=== PATIENT | female | born 1960 | race Caucasian/White ===

== ENCOUNTER 2018-09-22 12:36 | Emergency (ER) | payer BC ==
--- NOTE | 2018-09-22 15:01 | RAD REPORT ---
EXAM DESCRIPTION: RAD - Shoulder Left 2 View - 09/22/2018 1:58 pm CLINICAL HISTORY: Left shoulder pain FINDINGS: No fracture or dislocation is seen. Acromioclavicular space is widened. I suspect this is a chronic finding rather than an acute injury t o the ligament. This should be correlated clinically.
--- NOTE | 2018-09-22 15:23 | ER ---
Nurse's Notes [facility] Name: Ayse Reinoso Age: 58 yrs Sex: Female : 1960 Arrival Date: 09/22/2018 Time: 12:40 Bed 11 Private MD: Jase Chawla Diagnosis: Pain in left shoulder;Muscle spasm Presentation: 09/22 12:52 Presenting complaint: Patient states: L shoulder pain that began yesterday morning, ph radiates to neck, pt states, " It hurts to turn my head and it feels like my L arm wants to go to sleep, pt reports hx of L shoulder sx, denies recent injury, also denies chestpain, SOB, dizziness, N/V. Transition of care: patient was not received from another setting of care. Onset of symptoms was September 22, 2018. Risk Assessment: Do you want to hurt yourself or someone else? Patient reports no desire to harm self or others. Initial Sepsis Screen: Does the patient meet any 2 criteria? No. Patient's initial sepsis screen is negative. Does the patient have a suspected source of infection? No. Patient's initial sepsis screen is negative. Care prior to arrival: None. 12:52 Method Of Arrival: Ambulatory ph 12:52 Acuity: CYNDI 4 ph Historical: - Allergies: 12:57 Demerol; ph 12:57 Lortab; ph 12:57 Morphine; ph - PSHx: 12:57 Pt has one kidney; Tubal ligation; Knee surgery; shoulder; Hysterectomy; ph Cholecystectomy; - Immunization history:: Adult Immunizations up to date. - Social history:: Smoking status: unknown. - Ebola Screening: : Patient denies exposure to infectious person Patient denies travel to an Ebola-affected area in the 21 days before illness onset. Screenin:50 Abuse screen: Denies threats or abuse. Denies injuries from another. Nutritional ss screening: No deficits noted. Tuberculosis screening: No symptoms or risk factors identified. Never had TB. Fall Risk None identified. Assessment: 14:50 General: Appears uncomfortable, Behavior is calm, cooperative. Pain: Complains of pain ss in left sternocleidomastoid and left trapezius and left shoulder Pain currently is 8 out of 10 on a pain scale. Is continuous. Neuro: Level of Consciousness is awake, alert, obeys commands, Oriented to person, place, time, situation. Cardiovascular: Capillary refill < 3 seconds is brisk in bilateral fingers. Respiratory: Airway is patent Respiratory effort is even, unlabored, Respiratory pattern is regular, symmetrical. EENT: Oral mucosa is moist. Throat is clear. Derm: Skin is intact, is healthy with good turgor, Skin is pink, warm \\T\\ dry. normal. Musculoskeletal: Circulation, motion, and sensation intact. Capillary refill < 3 seconds, is brisk, in bilateral fingers. Range of motion: limited in left shoulder Swelling absent. Vital Signs: 12:56 BP 111 / 52; Pulse 77; Resp 18; Temp 98.2; Pulse Ox 100% on R/A; Weight 55.34 kg; ph Height 5 ft. 3 in. (160.02 cm); Pain 8/10; 12:56 Body Mass Index 21.61 (55.34 kg, 160.02 cm) ph ED Course: 12:40 Patient arrived in ED. sb2 12:40 Jase Chawla MD is Private Physician. sb2 12:56 Triage completed. ph 12:57 Arm band placed on Patient placed in waiting room, Patient notified of wait time. X-ray ph ordered. 13:57 X-ray completed. Patient tolerated procedure well. Patient moved back from radiology. jb2 14:50 Patient has correct armband on for positive identification. Bed in low position. Call ss light in reach. 15:13 Rhian[facility] Mil[facility]-C [facility]. snw 15:13 Zeus Kovacs MD is Attending Physician. snw 15:14 Ivonne Katz RN is Primary Nurse. ss 15:21 Jase Chawla MD is Referral Physician. snw 15:40 No provider procedures requiring assistance completed. Patient did not have IV access ss during this emergency room visit. Administered Medications: 15:24 Not Given (Patient Refused): TORadol 60 mg IM once ss 15:24 Not Given (pt drove herself): Flexeril 10 mg PO once ss Outcome: 15:21 Discharge ordered by . snw 15:40 Discharged to home ambulatory. ss 15:40 Condition: good 15:40 Discharge instructions given to patient, Instructed on discharge instructions, follow up and referral plans. medication usage, Demonstrated understanding of instructions, follow-up care, medications, Prescriptions given X 2. 15:40 Patient left the ED. Signatures: Rhiannon Milian, LINNEA-C ATMOSPHERIC PHYSICIST-Luis Enrique Bolden [place], NADIYA RN Hortencia Alvarez RN RN Eligio, Tete sb2
--- NOTE | 2018-09-22 15:23 | EDPHYS ---
Physician Documentation [facility] Name: Ayse Reinoso Age: 58 yrs Sex: Female : 1960 Arrival Date: 09/22/2018 Time: 12:40 Bed 11 Private MD: Jase Chawla ED Physician Zeus Kovacs HPI: 09/22 15:25 This 58 yrs old Female presents to ER via Ambulatory with complaints of snw Shoulder Pain, Neck Problem, Arm Pain. 15:25 The patient or guardian complains of decreased range of motion, pain, spasm. left snw shoulder, left trapezius and left sternocleidomastoid. Context: The problem was sustained at home, resulted from an unknown reason, The patient experiences decreased range of motion, The patient reports no obvious deformity. hx of 2 surgeries to left shoulder. Onset: The symptoms/episode began/occurred suddenly, 2 day(s) ago, and became worse and became persistent. Associated signs and symptoms: The patient has no apparent associated signs or symptoms. Severity of symptoms: At their worst the symptoms were moderate, severe, in the emergency department the symptoms are unchanged. Treatment prior to arrival includes: icing the affected extremity. It is unknown whether or not the patient has had similar symptoms in the past. The patient has not recently seen a physician. Historical: - Allergies: 12:57 Demerol; ph 12:57 Lortab; ph 12:57 Morphine; ph - PSHx: 12:57 Pt has one kidney; Tubal ligation; Knee surgery; shoulder; Hysterectomy; ph Cholecystectomy; - Immunization history:: Adult Immunizations up to date. - Social history:: Smoking status: unknown. - Ebola Screening: : Patient denies exposure to infectious person Patient denies travel to an Ebola-affected area in the 21 days before illness onset. ROS: 15:25 Constitutional: Negative for fever, chills, and weight loss, Eyes: Negative for injury, snw pain, redness, and discharge, ENT: Negative for injury, pain, and discharge, Neck: Negative for injury, pain, and swelling, Cardiovascular: Negative for chest pain, palpitations, and edema, Respiratory: Negative for shortness of breath, cough, wheezing, and pleuritic chest pain, Abdomen/GI: Negative for abdominal pain, nausea, vomiting, diarrhea, and constipation, Back: Negative for injury and pain, : Negative for injury, bleeding, discharge, and swelling, Skin: Negative for injury, rash, and discoloration, Neuro: Negative for headache, weakness, numbness, tingling, and seizure. 15:25 MS/extremity: Positive for shooting pain in left shoulder up to posterior mandible area. Exam: 15:24 Constitutional: This is a well developed, well nourished patient who is awake, alert, snw and in no acute distress. Head/Face: Normocephalic, atraumatic. Eyes: Pupils equal round and reactive to light, extra-ocular motions intact. Lids and lashes normal. Conjunctiva and sclera are non-icteric and not injected. Cornea within normal limits. Periorbital areas with no swelling, redness, or edema. ENT: Nares patent. No nasal discharge, no septal abnormalities noted. Tympanic membranes are normal and external auditory canals are clear. Oropharynx with no redness, swelling, or masses, exudates, or evidence of obstruction, uvula midline. Mucous membranes moist. Neck: Trachea midline, no thyromegaly or masses palpated, and no cervical lymphadenopathy. Supple, full range of motion without nuchal rigidity, or vertebral point tenderness. No Meningismus. Chest/axilla: Normal chest wall appearance and motion. Nontender with no deformity. No lesions are appreciated. Cardiovascular: Regular rate and rhythm with a normal S1 and S2. No gallops, murmurs, or rubs. Normal PMI, no JVD. No pulse deficits. Respiratory: Lungs have equal breath sounds bilaterally, clear to auscultation and percussion. No rales, rhonchi or wheezes noted. No increased work of breathing, no retractions or nasal flaring. Abdomen/GI: Soft, non-tender, with normal bowel sounds. No distension or tympany. No guarding or rebound. No evidence of tenderness throughout. Back: No spinal tenderness. No costovertebral tenderness. Full range of motion. Skin: Warm, dry with normal turgor. Normal color with no rashes, no lesions, and no evidence of cellulitis. Neuro: Awake and alert, GCS 15, oriented to person, place, time, and situation. Cranial nerves II-XII grossly intact. Motor strength 5/5 in all extremities. Sensory grossly intact. Cerebellar exam normal. Normal gait. Psych: Awake, alert, with orientation to person, place and time. Behavior, mood, and affect are within normal limits. 15:24 Musculoskeletal/extremity: Extremities: grossly normal except: noted in the left shoulder: decreased ROM, pain, muscle spasm. Vital Signs: 12:56 BP 111 / 52; Pulse 77; Resp 18; Temp 98.2; Pulse Ox 100% on R/A; Weight 55.34 kg; ph Height 5 ft. 3 in. (160.02 cm); Pain 8/10; 12:56 Body Mass Index 21.61 (55.34 kg, 160.02 cm) ph MDM: 15:13 Patient medically screened. snw 15:23 Data reviewed: vital signs, nurses notes. Data interpreted: Pulse oximetry: on room air snw is 100 %. Interpretation: normal. Counseling: I had a detailed discussion with the patient and/or guardian regarding: the historical points, exam findings, and any diagnostic results supporting the discharge/admit diagnosis, radiology results, the need for outpatient follow up, to return to the emergency department if symptoms worsen or persist or if there are any questions or concerns that arise at home. Special discussion: Based on the history and exam findings, there is no indication for further emergent testing or inpatient evaluation. I discussed with the patient/guardian the need to see the orthopedic surgeon for further evaluation of the symptoms. I discussed with the patient/guardian the need to see the primary care provider for further evaluation of the symptoms. ED course: Pt declines anti-inflammatory 2nd to solitary kidney post donation. States she can take Ultram. Pt unable to get ride so rx given. 09/22 12:57 Order name: Shoulder Left (2 View) XRAY 09/22 15:03 Order name: RAD; Complete Time: 15:14 EDMS Administered Medications: 15:24 Not Given (Patient Refused): TORadol 60 mg IM once ss 15:24 Not Given (pt drove herself): Flexeril 10 mg PO once ss Disposition: 09/22/18 15:21 Discharged to Home. Impression: Pain in left shoulder, Muscle spasm. - Condition is Stable. - Discharge Instructions: Joint Pain, Musculoskeletal Pain, Shoulder Pain, Cryotherapy, Heat Therapy. - Prescriptions for Ultram 50 mg Oral Tablet - take 1 tablet by ORAL route every 6 hours As needed; 14 tablet. Cyclobenzaprine 10 mg Oral Tablet - take 1 tablet by ORAL route every 8 hours As needed; 20 tablet. - Medication Reconciliation Form, Thank You Letter, Antibiotic Education, Prescription Opioid Use form. - Follow up: Jase Chawla MD; When: 2 - 3 days; Reason: Recheck today's complaints, Continuance of care, Re-evaluation by your physician. Addendum: 09/24/2018 09:12 Co-signature as Attending Physician, Zeus Kovacs MD I agree with the assessment and k dr plan of care. Signatures: Dispatcher [employer] EDRI Zeus Kovacs MD MD [facility] Rhiannon Milian, PROFESSOR OF RHETORIC-C PROFESSOR OF RHETORIC-Csnw Ivonne Katz, NADIYA RN ss Hortencia Alvarez RN RN ph Corrections: (The following items were deleted from the chart) 09/22 15:40 15:27 Sling ordered. snw ss 15:40 15:21 09/22/2018 15:21 Discharged to Home. Impression: Pain in left shoulder; Muscle ss spasm. Condition is Stable. Forms are Medication Reconciliation Form, Thank You Letter, Antibiotic Education, Prescription Opioid Use. Follow up: Jase Chawla; When: 2 - 3 days; Reason: Recheck today's complaints, Continuance of care, Re-evaluation by your physician. snw
== END 2018-09-22 15:40 | disposition home or self-care (01) ==
LOC: ER 12:36
DX: M62.838 Other muscle spasm (principal); Z88.5 Allergy status to narcotic agent
CPT/HCPCS: 99283

== ENCOUNTER 2020-10-27 20:58 | Emergency (ER) | payer BC, OTHER ==
--- OUTSIDE RECORDS SUMMARY | 2020-10-27 21:00 | XMS REPORT | Clinical Summary ---
:1960 Author Organization [facility] Address [address] [place] [address] Care Team Providers Name Role Phone Ulices Sainz MD Primary Care Provider Allergies Active Allergy Reactions Severity Noted Date Comments Hydrocodone-Acetaminophen Other (See Comments) 996 Meperidine Other (See Comments) 10/24/1995 Morphine 10/24/1995 Medications Medication Sig Dispensed Refills Start Date End Date Status albuterol (PROVENTIL 0 11/25/2013 Active HFA) 90 mcg/actuation inhaler SYMBICORT 80-4.5 0 07/01/2019 Ac tive mcg/actuation inhaler EPINEPHrine 0.3 0 11/25/2013 Act colton mg/0.3 mL syringe estradiol APPLY 1 2 06/21/2019 Active (VIVELLE-DOT) 0.05 PATCH TO mg/24 hr SKIN WEEKLY. levocetirizine Take 5 mg 1 06/22/2019 Acti ve (XYZAL) 5 MG tablet by mouth daily. montelukast 0 11/25/2013 Active (SINGULAIR) 10 mg tablet BOTOX 200 unit recon 0 04/17/2019 Active soln multivitamin with Take 1 0 Ac tive minerals tablet tablet by mouth daily. B infantis/B ani/B Take by 0 A ctive angie/B bifid mouth. (PROBIOTIC 4X ORAL) famotidine (PEPCID) 0 09/10/2019 Active 40 MG tablet atorvastatin Take 1 90 tablet 3 06/10/2020 Active (LIPITOR) 20 mg tablet (20 tablet mg total) by mouth daily. atorvastatin Take 20 mg 0 09/24/2019 Disco ntinued (LIPITOR) 20 MG by mouth 0 (Reo rder) tablet daily. 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/2019 Disorder of rotator cuff 09/24/2019 Shoulder joint pain 09/24/2019 SOB (shortness of breath) 07/06/2019 Bradycardia 07/06/2019 Carotid bruit 07/06/2019 Palpitations 07/06/2019 Abnormal ECG 07/06/2019 Vaginal atrophy 08/19/2016 Dyspareunia 06/23/2016 Encounter for gynecological examination (general) (rou daphne) without 06/23/2016 abnormal findings Menopausal syndrome (hot flashes) 06/23/2016 Plantar fascia syndrome 02/26/2016 Asthma 10/24/1995 Attention deficit disorder (ADD) 1960 Encounters Date Type Specialty Care Team Description 06/10/2020 Orders Only Cardiology Zelda Miner MA 11/01/2019 Office Visit Hepatology Philip Reed MD Liver c yst (Primary Dx) after 10/27/2019 Surgical History Surgery Date Site/Laterality Comments REPAIR, HERNIA Medical History Medical History Date Comments Palpitations Abnormal ECG GERD (gastroesophageal reflux disease) Asthma Allergy Liver cyst Family History Medical History Relation Name Comments Bladder Cancer Father Heart disease Father Heart disease Mother Hypertension Mother Seizures Mother Relation Name Status Comments Father Alive Mother Alive Social History Tobacco Use Types Packs/Day Years Used Date Former Smoker 1 40 Quit: 07/06/20 05 Smokeless Tobacco: Never Used Alcohol Use Drinks/Week oz/Week Comments Yes Sex Assigned at Date Recorded Female 06/28/2019 3:16 PM CDT Last Filed Vital Signs Vital Sign Reading Time Taken Comments Blood Pressure 116/56 11/01/2019 1:20 PM [employer] Pulse 63 11/01/2019 1:20 PM [employer] Temperature - - Respiratory Rate - - Oxygen Saturation 95% 11/01/2019 1:20 PM [employer] Inhaled Oxygen Concentration - - Weight 58.1 kg (128 lb 2 oz) 11/01/2019 1:20 PM [employer] Height 160 cm (5' 3") 11/01/2019 1:20 PM [employer] Body Mass Index 22.7 11/01/2019 1:20 PM [employer] Plan of Treatment Health Maintenance Due Date Last Done Comments COVID-19 VACCINE (#1) 1978 CERVICAL CANCER SCREENING 1983 BREAST CANCER SCREENING 01/03/2012 COLONOSCOPY SCREENING 01/03/2012 SHINGLES VACCINES (#1) 01/03/2012 INFLUENZA VACCINE 05/24/2020 07/06/2019 Results Not on fileafter 10/27/2019 Advance Directives For more information, please contact: [phone] Type Date Recorded Patient Roof Foreman Explanati on Advance Directives, Living Will and Medical Power of Striper
--- OUTSIDE RECORDS SUMMARY | 2020-10-27 21:06 | XMS REPORT | Continuity of Care Document ---
:1960 Author Organization [employer] Care Team Providers Name Role Phone [employer] Unavailable Un available Problems Problem Status Onset Classification Date Comments Sourc e Date Reported M25.519 - PAIN Active 10/08/20 OP ID IN UNSPECIFIED 19 [facility] and SHOULDER RENAL POST Active 04/30/20 [facility] 15 [facility] Center RENAL POST Active 11/26/19 [facility] DONOR CLINIC 15 [facility] LRD Active 05/17/[address] DONOR VISIT Active 12/05/[address] LABS Active 05/28/[address] LABS // Active 04/17/[address] BDDC/SCREENING Active 04/10/20 [facility] xa COLONOSCOPY [address] [place] [address] RENAL Active 03/16/20 [facility] PT///COLON 13 [facility] KIDNEY DONOR Active 03/09/[address] LIVING DONOR Active 02/07/20 [facility] EVAL [address] [place] [address] Dyspareunia Active 04/12/2013 [facility] cyst removal on Resolved Problem 08/30/2013 [facility] Left shoulder Resolved Problem 08/30/2013 [address] [facility] [place] surgery1 [facility] Center right knee Resolved Problem 08/30/2013 [facility] arthroscopy [facility] Total Abdominal Resolved Problem 08/30/2013 [facility] Tubal ligation2 Resolved Problem 08/30/2013 [id number] [facility] [facility] cyst removal on Resolved Problem 12/30/2014 [facility](Confir Cent er med) Left shoulder Resolved Problem 12/30/2014 [address] [facility] [place] surgery(Confirm Medi zhou ed)1 Center right knee Resolved Problem 12/30/2014 [facility] arthroscopy(Con Medi zhou firmed) Center Total Abdominal Resolved Problem 12/30/2014 [facility] hysterectomy(Co Medi zhou nfirmed) Center Tubal Resolved Problem 12/30/2014 41[address] [facility] ligation(Confir Medi zhou med)2 Center KIDNEY DONOR Active [facility] Medications Medication Details Route Status Patient Ordering Order Source Instructions Provider Date Omeprazole PO, Daily, 0 Active Refill(s) 2018 Neuro Estradiol 0 Refill(s) Active 2019 Neuro Xyzal PO, QPM, 0 Active Refill(s) 2018 Neuro 200 ACTUAT 2 puff, Active Albuterol 0.09 INHALATION, QID, 2018 Neuro MG/ACTUAT 0 Refill(s) Metered Dose Inhaler [Proventil] Symbicort 2 puff, Active 160/4.5 INHALATION, BID, 2018 Neuro inhalation 0 Refill(s) aerosol with adapter tizanidine PO, 0 Refill(s) Active er 2018 Neuro Singulair Daily, 0 Active Refill(s) 2018 Neuro Probiotic 1 cap, PO, Active [place] Formula oral Daily, 0 2014 Medical capsule Refill(s) [place] Zofran 4 mg 4 mg, 1 tab, PO, PO Active [facility] [place] oral tablet Q8H, PRN, 30 fuad 2012 Medical tab, as needed Center for nausea/vomiting, Substitution Allowed tramadol 50 mg 50 mg, 1 tab, PO Active [facility] [place] oral tablet PO, Q4H, PRN, 50 fuad 2012 Med ical tab, as needed Center for pain, Substitution Allowed, TAB simethicone 80 80 mg, 1 tab, CHEW Active [facility] [place] mg oral tablet, CHEW, TID, PRN, fuad 2012 Medical chewable 40 tab, Gas, [place] Substitution Allowed, Maintenance, CHEWTAB docusate sodium 100 mg, 1 cap, PO Active [facility] [place] 100 mg oral PO, Q8H, 60 cap, fuad 2012 Med ical capsule 0, 0, [place] Substitution Allowed, CAP simethicone 80 mg, 1 tab, CHEW No Dawson Matt as Route: CHEW, Longer 2012 Medical Drug form: Active Center CHEWTAB, TID, Dosing Weight 55, kg, PRN Gas, Priority: STAT, Start date: 06/03/13 21:54:00, Duration: 30 day, Stop date: 07/03/13 21:53:00 tramadol 50 mg 50 mg, 1 tab, PO No Dawson 06/03[facility] oral tablet Route: PO, Drug Longer 2012 [facility] zhou form: TAB, Q4H, Active Center Dosing Weight 55, kg, PRN as needed for pain, Start date: 06/03/13 12:00:00, Duration: 30 day, Stop date: 07/03/13 8:00:00 Ditropan 5 mg, 1 tab, PO No Person 06/03[facility] Route: PO, Drug Longer 2012 Medical form: TAB, TID, Active Center Dosing Weight 55, kg, PRN Bladder Spasm, Start date: 06/02/13 19:05:00, Duration: 30 day, Stop date: 07/02/13 19:04:00 docusate sodium 100 mg, 1 cap, PO No [facility] 06/02[facility] Route: PO, Drug Longer 2012 Medical form: CAP, Q8H, Active Center Dosing Weight 55, kg, Start date: 06/02/13 16:00:00, Duration: 30 day, Stop date: 07/02/13 8:00:00 Dulcolax 10 mg, 1 supp, [place] No Person 06/02[facility] Laxative Route: [place], Drug 2012 Medical form: SUPP, Active Center Daily, Dosing Weight 55, kg, PRN Constipation, Start date: 06/02/13 11:08:00, Duration: 30 day, Stop date: 07/02/13 11:07:00 [place] 5/325 1 tab, Route: PO No Joel 06/02[facility] Matt as oral tablet PO, Drug Form: 2012 Medic al TAB, Dosing Active Center Weight 55, kg, Q4H, PRN Pain, Start date: 06/02/13 11:06:00, Duration: 30 day, Stop date: 07/02/13 11:05:00 MiraLax 17 gm, 1 pkt, PO No [facility] 06/02[facility] Route: PO, Drug Longer fuad 2012 Medical form: PWDR, Active Center ONCE, Dosing Weight 55, kg, Start date: 06/02/13 9:00:00, Duration: 1 doses or times, Stop date: 06/02/13 9:00:00 ondansetron 4 mg, 2 mL, IVP No Dawson 06/02[facility] Route: IVP, Drug Longer 2012 Medical form: INJ, ONCE, Active Center Dosing Weight 55, kg, Priority: STAT, Start date: 06/01/13 19:53:00, Stop date: 06/01/13 19:53:00 acetaminophen 1,000 mg, 100 IVP No [facility] 06/01[facility] Jenny mL, Route: IVP, Longer fuad 2012 Medical Drug form: INJ, Active Center Q6H, Dosing Weight 55, kg, Start date: 06/01/13 18:00:00, Duration: 3 doses or times, Stop date: 06/02/13 6:00:00 Zofran 4 mg, Route: IV, IV No [facility] [place] Drug form: INJ, Longer fuad 2012 Medical Q8H, Dosing Active Center Weight 55, kg, PRN Nausea, Start date: 06/01/13 15:59:00, Duration: 30 day, Stop date: 07/01/13 15:58:00 droperidol 0.625 mg, Route: IVP No [place] 06/01[facility] [place] IVP, ONCE, Longer 2012 Medical Dosing Weight Active Center 55, kg, PRN Nausea, Start date: 06/01/13 13:40:00, Stop date: 07/01/13 13:39:00 pantoprazole 40 mg, 1 tab, PO No [facility] Route: PO, Drug Longer 2012 Medical form: ECTAB, Active Center Before Breakfast, Dosing Weight 55, kg, Start date: 06/01/13 13:30:00, Duration: 30 day, Stop date: 07/01/13 7:30:00 promethazine 6.25 mg, 0.25 IVPB No [place] 06/01[facility] [place] mL, Route: IVPB, Longer 2012 Medical Drug form: INJ, Active Center ONCE, Dosing Weight 55, kg, Start date: 06/01/13 12:55:00, Stop date: 06/01/13 12:55:00 D5W 1/2NS 1,000 1,000 mL, Rate: IV No Person Jenny mL 100 ml/hr, Longer 2012 Medical Infuse over: 10 Active Center hr, Route: IV, Dosing Weight 55 kg, Total Volume: 1,000, Start date: 06/01/13 12:20:00, Duration: 30 day, Stop date: 07/01/13 12:19:00 ondansetron 4 mg, 2 mL, IVP No [facility] Matt as Route: IVP, Drug Longer fuad 2012 Medical form: INJ, Q6H, Active Center Dosing Weight 55, kg, PRN Nausea & Vomiting, Start date: 06/01/13 12:15:00, Duration: 30 day, Stop date: 07/01/13 12:14:00 polyethylene 17 gm, 1 pkt, PO No [facility] 06/01[facility] glycol 3350 Route: PO, Drug Longer fuad 2012 [facility] zhou form: PWDR, BID, Active Center Dosing Weight 55, kg, Start date: 06/01/13 12:15:00, Duration: 30 day, Stop date: 07/01/13 9:00:00 Saline Flush 5 ml, Route: IVP No [facility] 06/01[facility] [place] 0.9% IVP, Drug Form: Longer fuad 2012 Medical INJ, Dosing Active Center Weight 55, kg, PRN, PRN Line Flush, Start date: 06/01/13 12:15:00, Duration: 30 day, Stop date: 07/01/13 12:14:00 hydromorphone 0.5 mg, 0.25 mL, IVP No Joel Marsha Alvarado Route: IVP, Drug Longer 2012 Medical form: INJ, Q3H, Active Center Dosing Weight 55, kg, PRN Pain Score 7-10, Start date: 06/01/13 12:15:00, Duration: 30 day, Stop date: 07/01/13 12:14:00 ondansetron 4 mg, Route: IVP No [place] IVP, ONCE, Longer 2012 Medical Dosing Weight Active Center 55, kg, PRN Nausea & Vomiting, Start date: 06/01/13 11:51:00 dexamethasone 4 mg, Route: IVP No Joe 06/01[facility] [place] IVP, ONCE, Longer 2012 Medical Dosing Weight Active Center 55, kg, PRN Nausea & Vomiting, Start date: 06/01/13 11:51:00 flumazenil 0.2 mg, 2 mL, IVP No [place] Route: IVP, Drug 2012 Medical form: INJ, PRN, Active Center Dosing Weight 55, kg, PRN Benzodiazepine Reversal, Initial dose, Start date: 06/01/13 11:51:00, Duration: 1 day, Stop date: 06/02/13 11:50:00 naloxone 0.04 mg, 0.1 mL, IVP No [place] Matt as Route: IVP, Drug 2012 Medical form: INJ, Active Center Q2MIN, Dosing Weight 55, kg, PRN Narcotic Reversal, Start date: 06/01/13 11:51:00, Duration: 8 doses or times, Stop date: Limited # of times hydromorphone 0.5 mg, 0.25 mL, IVP No [place] [facility] [place] Route: IVP, Drug 2012 Medical form: INJ, Active Center Q5Min, Dosing Weight 55, kg, PRN Pain Score 7-10, Start date: 06/01/13 11:51:00, Duration: 5 doses or times, Stop date: Limited # of times acetaminophen 1,000 mg, Route: IV No Braly [facility] [place] 10 mg/mL IV, Drug form: Longer 2012 Medical intravenous INJ, ONCE, Active Center solution Dosing Weight 55, kg, PRN Pain Score 4-6, Start date: 06/01/13 11:51:00, Duration: 1 doses or times, Stop date: Limited # of times, Infuse over 15 minutes (for patient weight 50 kg or greater)Infuse over 15 minutes (for patient weight 50 kg or greater) Ancef 1 gm, Route: IV, IV No [place] [place] Drug form: Longer fuad 2012 Medical PDR/INJ, ONCE, Active Center Dosing Weight 56.8, kg, Start date: 06/01/13 6:00:00, Stop date: 06/01/13 6:00:00 Sodium Chloride 250 mL, Rate: On IV No Semaj[facility]Reji 06/01 [place] 0.9% (titrate) call for use Longer fuad 2012 Medi zhou 250 mL with blood Active Center product administration, Dosing Weight 55, kg, Route: IV, Total Volume: 250, Duration: 30 day, Stop date: 07/01/13 0:36:00, Replace Every: 24 hr Maalox Advanced 30 mL, Route: PO No Sal 06/01/ [place] Regular PO, Drug Form: Longer 2012 Medical Strength SUSP SUSP, Dosing Active Gladyse r Weight 55, kg, QID, PRN Indigestion, Start date: 05/31/13 20:18:00, Duration: 30 day, Stop date: 06/30/13 20:17:00 magnesium 300 ml, Route: PO No [facility] 05/31[facility] [place] citrate PO, Drug Form: Longer fuad 2012 Medical LIQ, Dosing Active [place] Weight 56.8, kg, ONCE, Start date: 05/31/13 17:00:00, Stop date: 05/31/13 17:00:00 1/2 NS 1,000 mL 1,000 mL, Rate: IV No [facility] 05/31[facility] Jenny 125 ml/hr, Longer fuad 2012 Medical Infuse over: 8 Active Center hr, Route: IV, Dosing Weight 56.8 kg, Total Volume: 1,000, Start date: 05/31/13 12:01:00, Duration: 30 day, Stop date: 06/30/13 12:00:00 methocarbamol PRN, as needed Active 03/28[facility] 750 mg oral for pain, 2012 Medical tablet Substitution Center Allowed HYDROcodone-ibu 1 tab, PO, Q4H, PO Active 03/28[facility] profen 7.5 PRN, for pain, 2012 Medica l mg-200 mg oral Substitution Cent er tablet Allowed, Maintenance, TAB No Reported (Active) Active DC Medications Physicians Allergies, Adverse Reactions, Alerts Substance Category Reaction Severity Reaction Status Date Comments S ource type Reported Lortab TABS drug drug Active DC allergy allergy Physicia ns Demerol drug drug Active DC TABS allergy allergy Physicia ns Lortab Assertion Drug Active OPI D allergy Flora Demerol HCl Assertion Drug Active OPID allergy Flora Immunizations No Data Provided for This Section Results Order Name Results Value Reference Date Interpretation Comments Gail rce Range CHEM PANEL eGFR 52 12/07 <sup>1</sup>R Amira /2013 esult Medical Comment: The Center eGFR is calculated using the CKD-EPI formula. In most young, healthy individuals the eGFR will be >90 mL/min/1.73m2 . The eGFR declines with age. An eGFR of 60-89 may be normal in some populations, particularly the elderly, for whom the CKD-EPI formula has not been extensively validated. Use of the eGFR is not recommended in the following populations:& lt;br/>
I ndividuals with unstable creatinine concentration s, including patients and those with serious co-morbid conditions.<b r/>
Patie nts with extremes in muscle mass or diet.

The data above are obtained from the National Kidney Disease Education Program (NKDEP) which additionally recommends that when the eGFR is used in patients with extremes of body mass index for purposes of drug dosing, the eGFR should be multiplied by the estimated BMI. CHEM PANEL Creatinine 1.2 0.5 - 1.4 12/07 [facility] CHEM PANEL Sodium Lvl 141 135 - 145 12/07 [facility] CHEM PANEL Potassium 4.4 3.5 - 5.1 12/07 [facility] CHEM PANEL Glucose Lvl 79 70 - 99 12/07 <sup>2</sup>I nterpretive Medical Data: Adult Center reference range values reflect the clinical guidelines
of the [place] [employer]. CHEM PANEL BUN 23 7 - 22 12/07 [facility] CHEM PANEL CO2 28 24 - 32 12/07 [facility] CHEM PANEL Chloride Lvl 106 95 - 109 12/07 [facility] CHEM PANEL Calcium Lvl 8.6 8.5 - 10.5 12/07 [facility] CHEM PANEL AGAP 11.4 10.0 - 20.0 12/07 [facility] HEMATOLOGY Basophils 1.0 0.0 - 1.0 12/07 [facility] HEMATOLOGY Segs-Bands # 3.1 1.5 - 8.1 12/07 [facility] HEMATOLOGY Eosinophils 5.4 0.0 - 4.0 12/07 [facility] HEMATOLOGY Lymphocytes 1.2 1.0 - 5.5 12/07 s # [facility] HEMATOLOGY Monocytes # 0.4 0.0 - 0.8 12/07 2014 [facility] HEMATOLOGY Eosinophils 0.3 0.0 - 0.5 12/07 a s # [facility] HEMATOLOGY Basophils # 0.1 0.0 - 0.2 12/07 s [facility] HEMATOLOGY Lymphocytes 24.6 20.0 - 40.0 12/07 [place] [facility] HEMATOLOGY Segs 60.7 45.0 - 75.0 12/07 [facility] HEMATOLOGY Monocytes 8.3 2.0 - 12.0 12/07 [facility] HEMATOLOGY Platelet 202 133 - 450 12/07 [facility] HEMATOLOGY MPV 9.3 7.4 - 10.4 12/07 [facility] HEMATOLOGY RDW 12.9 11.5 - 14.5 12/07 [facility] HEMATOLOGY Hct 38.0 36.0 - 48.0 12/07 [facility] HEMATOLOGY WBC X 10x3 5.1 3.7 - 10.4 12/07 [facility] HEMATOLOGY RBC X 10x6 4.18 4.20 - 5.40 12/07 [facility] HEMATOLOGY Hgb 13.2 12.0 - 16.0 12/07 [facility] HEMATOLOGY MCV 90.9 81.0 - 99.0 12/07 [facility] HEMATOLOGY MCH 31.6 27.0 - 31.0 12/07 [facility] HEMATOLOGY MCHC 34.8 32.0 - 36.0 12/07 [facility] URINE AND UA <=1.0 0.1 - 1.0 12/07 [facility] Urobilinogen mg/dL [facility] URINE AND UA Leuk Est Negative Negative 12/07 [facility] (12/07/2013 06:50:00 [place]) [facility] URINE AND UA Sq Epi Occasional Few /LPF 12/07 [facility] STOOL /LPF [facility] URINE AND UA WBC <1 0 - 5 12/07 [facility] URINE AND UA Blood Trace Negative 12/07 [facility] STOOL *ABN* /2013 Medical (12/07/2013 06:50:00 [facility]) [place] URINE AND UA Nitrite Negative Negative 12/07 [facility] (12/07/2013 06:50:00 [place] Medical [place] URINE AND UA RBC 1 0 - 2 12/07 [facility] Medical Center URINE AND UA Mucus Few /LPF None Seen 12/07 [facility] STOOL /LPF Medical [place] URINE AND UA Turbidity Clear Clear 12/07 [facility] (12/07/2013 06:50:00 [place] Medical [place] URINE AND UA Color Yellow Yellow 12/07 [facility] *NA* [facility] (12/07/2013 06:50:00 [place]) Center URINE AND UA Spec Grav 1.020 <=1.030 12/07 [facility] Medical [place] URINE AND UA Bili Negative Negative 12/07 [facility] *NA* [facility] (12/07/2013 06:50:00 [place]) Center URINE AND UA Ketones Negative Negative 12/07 [facility] mg/dL mg/dL [facility] URINE AND UA Glucose Negative Negative 12/07 [facility] mg/dL mg/dL [facility] URINE AND UA Protein Negative Negative 12/07 [facility] mg/dL mg/dL [facility] URINE AND UA pH 5.5 5.0 - 8.0 12/07 [facility] URINE CHEM U Prot/Creat 0.1 12/07 [facility] URINE CHEM U Microalb <5.0 12/07 [facility] URINE CHEM U Protein 18.1 12/07 <sup>4</sup>I Te nterpretive Medical Data: No Center established reference ranges. URINE CHEM U Creatinine 176.9 12/07 <sup>3</sup>I nterpretive Medical Data: No Center established reference ranges. CHEMISTRY U Creatinine 91.2 07/30 <sup>3</sup>I nterpretive Medical Data: No Center established reference ranges. CHEMISTRY U Microalb <5.0 07/30 [facility] CHEMISTRY U Alb/Crea <5.5 <=30.0 07/30 Normal [facility] CHEMISTRY U Microalb <5.0 07/30 [facility] CHEMISTRY U Protein 13.1 07/30 <sup>4</sup>I nterpretive Medical Data: No Center established reference ranges. CHEMISTRY AGAP 15.5 10.0 - 20.0 07/30 Normal [facility] CHEMISTRY eGFR 58 07/30 <sup>1</sup>R esult Medical Comment: The Center eGFR is calculated using the CKD-EPI formula. In most young, healthy individuals the eGFR will be >90 mL/min/1.73m2 . The eGFR declines with age. An eGFR of 60-89 may be normal in some populations, particularly the elderly, for whom the CKD-EPI formula has not been extensively validated. Use of the eGFR is not recommended in the following populations:& lt;br/>
I ndividuals with unstable creatinine concentration s, including patients and those with serious co-morbid conditions.<b r/>
Patie nts with extremes in muscle mass or diet.

The data above are obtained from the National Kidney Disease Education Program (NKDEP) which additionally recommends that when the eGFR is used in patients with extremes of body mass index for purposes of drug dosing, the eGFR should be multiplied by the estimated BMI. CHEMISTRY Calcium Lvl 8.2 8.5 - 10.5 07/30 LOW [facility] CHEMISTRY CO2 27 24 - 32 07/30 Normal [facility] CHEMISTRY Chloride Lvl 105 95 - 109 07/30 Normal [facility] CHEMISTRY Potassium 4.5 3.5 - 5.1 07/30 Normal [facility] CHEMISTRY Glucose Lvl 68 70 - 99 07/30 LOW <sup>2</sup>I T ex nterpretive Medical Data: Adult Center reference range values reflect the clinical guidelines
of the [place] [employer]. CHEMISTRY Creatinine 1.1 0.5 - 1.4 07/30 Normal [facility] CHEMISTRY BUN 18 7 - 22 07/30 Normal [facility] CHEMISTRY Sodium Lvl 143 135 - 145 07/30 Normal [facility] HEMATOLOGY Eosinophils 0.3 0.0 - 0.5 07/30 [place] # [facility] HEMATOLOGY Segs-Bands # 2.7 1.5 - 8.1 07/30 Normal [place] [facility] HEMATOLOGY Monocytes # 0.4 0.0 - 0.8 07/30 [place] [facility] HEMATOLOGY Lymphocytes 0.9 1.0 - 5.5 07/30 [place] [facility] HEMATOLOGY Monocytes 10.1 2.0 - 12.0 07/30 Normal [facility] HEMATOLOGY Basophils 0.9 0.0 - 1.0 07/30 Normal [facility] HEMATOLOGY Eosinophils 5.9 0.0 - 4.0 07/30 [place] a s [facility] HEMATOLOGY Segs 61.5 45.0 - 75.0 07/30 Normal [facility] HEMATOLOGY Lymphocytes 21.6 20.0 - 40.0 07/30 Normal [place] [facility] HEMATOLOGY RDW 14.1 11.5 - 14.5 07/30 Normal [facility] HEMATOLOGY MPV 9.9 7.4 - 10.4 07/30 Normal [facility] HEMATOLOGY Platelet 178 133 - 450 07/30 Normal [facility] HEMATOLOGY Hgb 12.8 12.0 - 16.0 07/30 Normal [facility] HEMATOLOGY MCV 88.8 81.0 - 99.0 07/30 Normal [facility] HEMATOLOGY Hct 37.6 36.0 - 48.0 07/30 Normal [facility] HEMATOLOGY MCH 30.1 27.0 - 31.0 07/30 Normal [facility] HEMATOLOGY MCHC 33.9 32.0 - 36.0 07/30 Normal [facility] HEMATOLOGY WBC X 10x3 4.3 3.7 - 10.4 07/30 Normal a s [facility] HEMATOLOGY RBC X 10x6 4.24 4.20 - 5.40 07/[address] [facility] URINALYSIS UA <=1.0 0.1 - 1.0 07/30 [facility] Urobilinogen mg/dL [facility] URINALYSIS UA Sq Epi None Seen 07/30 [facility] URINALYSIS UA RBC <1 0 - 2 07/30 Normal [facility] URINALYSIS UA Mucus Few /LPF None Seen 07/30 [facility] URINALYSIS UA Nitrite Negative Negative 07/30 Normal [facility] (07/30/2013 07:55:00) /2012 Me dical Center URINALYSIS UA WBC <1 0 - 5 07/30 Normal [facility] URINALYSIS UA Leuk Est Negative Negative 07/30 [place] 07:55:00[place] Mi dicil Center URINALYSIS UA Glucose Negative Negative 07/30 [facility] mg/dL [facility] URINALYSIS UA Blood Trace Negative 07/30 ABN *ABN* Medical (07/30/2013 07:55:00) Ce nter URINALYSIS UA Bili Negative Negative 07/30 [facility] *NA* Medical (07/30/2013 07:55:00) Ce nter URINALYSIS UA Ketones Negative Negative 07/30 [facility] mg/dL [facility] URINALYSIS UA Spec Grav 1.013 <=1.030 07/30 Normal [facility] URINALYSIS UA Turbidity Clear Clear 07/30 Normal [facility] (07/30/2013 07:55:00) Mi dicil Center URINALYSIS UA Protein Negative Negative 07/30 Normal [facility] mg/dL [facility] URINALYSIS UA pH 5.0 5.0 - 8.0 07/30 Normal [facility] URINALYSIS UA Color Light Yellow Yellow 07/30 [place] *[place] Medical (07/30/2013 07:55:00) Ce nter Microbiolo Culture: 07/02 [facility] gy [facility] CHEMISTRY U Alb/Crea <3.1 <=30.0 07/02 Normal [facility] CHEMISTRY U Microalb <5.0 07/02 NA [facility] CHEMISTRY U Creatinine 160.7 07/02 NA <sup>5</sup>I nterpretive Medical Data: No Center established reference ranges. CHEMISTRY U Microalb <5.0 07/02 NA [facility] CHEMISTRY U Protein 18.3 07/02 NA <sup>7</sup>I nterpretive Medical Data: No Center established reference ranges. CHEMISTRY AGAP 14.2 10.0 - 20.0 07/02 Normal [facility] CHEMISTRY eGFR 44 07/02 NA <sup>1</sup>R esult Medical Comment: The Center eGFR is calculated using the CKD-EPI formula. In most young, healthy individuals the eGFR will be >90 mL/min/1.73m2 . The eGFR declines with age. An eGFR of 60-89 may be normal in some populations, particularly the elderly, for whom the CKD-EPI formula has not been extensively validated. Use of the eGFR is not recommended in the following populations:& lt;br/>
I ndividuals with unstable creatinine concentration s, including patients and those with serious co-morbid conditions.<b r/>
Patie nts with extremes in muscle mass or diet.

The data above are obtained from the National Kidney Disease Education Program (NKDEP) which additionally recommends that when the eGFR is used in patients with extremes of body mass index for purposes of drug dosing, the eGFR should be multiplied by the estimated BMI. CHEMISTRY Calcium Lvl 9.0 8.5 - 10.5 07/02 Normal [facility] CHEMISTRY Chloride Lvl 104 95 - 109 07/02 Normal 2012 [facility] CHEMISTRY CO2 26 24 - 32 07/02 Normal [facility] CHEMISTRY BUN 21 7 - 22 07/02 Normal [facility] CHEMISTRY Creatinine 1.4 0.5 - 1.4 07/02 Normal [facility] CHEMISTRY Sodium Lvl 140 135 - 145 07/02 [facility] CHEMISTRY Potassium 4.2 3.5 - 5.1 07/02 Normal [facility] CHEMISTRY Glucose Lvl 78 70 - 99 07/02 Normal <sup>3</sup>I T ex nterpretive Medical Data: Adult Center reference range values reflect the clinical guidelines
of the [place] [employer]. HEMATOLOGY Lymphocytes 1.2 1.0 - 5.5 / Normal [place] # /2012 [facility] HEMATOLOGY Eosinophils 0.3 0.0 - 0.5 / Normal [place] # /2012 [facility] HEMATOLOGY Monocytes # 0.4 0.0 - 0.8 07/02 [facility] s /2012 [facility] HEMATOLOGY Lymphocytes 21.7 20.0 - 40.0 / [place] [facility] HEMATOLOGY Eosinophils 4.9 0.0 - 4.0 07/02 [place] /2012 [facility] HEMATOLOGY Monocytes 6.4 2.0 - 12.0 07/02 Normal [facility] HEMATOLOGY Basophils 0.7 0.0 - 1.0 07/02 Normal [facility] HEMATOLOGY Segs-Bands # 3.7 1.5 - 8.1 07/02 Normal /2012 [facility] HEMATOLOGY Segs 66.3 45.0 - 75.0 07/02 Normal [facility] HEMATOLOGY MPV 9.1 7.4 - 10.4 07/02 Normal [facility] HEMATOLOGY MCHC 33.0 32.0 - 36.0 07/02 Normal [facility] HEMATOLOGY MCH 29.4 27.0 - 31.0 07/02 Normal [facility] HEMATOLOGY RDW 12.5 11.5 - 14.5 07/02 Normal [facility] HEMATOLOGY Platelet 225 133 - 450 07/02 Normal [facility] HEMATOLOGY Hgb 12.1 12.0 - 16.0 07/02 Normal [facility] HEMATOLOGY Hct 36.8 36.0 - 48.0 07/02 Normal [facility] HEMATOLOGY RBC 4.12 4.20 - 5.40 07/02 LOW [facility] HEMATOLOGY MCV 89.2 81.0 - 99.0 07/02 Normal [facility] HEMATOLOGY WBC 5.5 3.7 - 10.4 07/02 Normal [facility] URINALYSIS UA Mucus Few /LPF None Seen 07/02 [facility] *NA* Medical (07/02/2013 07:00:00) Ce nter URINALYSIS UA 0.1 - 1.0 07/02 NA [facility] Urobilinogen /2012 [facility] URINALYSIS UA Nitrite Negative Negative 07/02 Normal [facility] (07/02/2013 07:00:00) Mi dical Center URINALYSIS UA Leuk Est Negative Negative 07/02 Normal [facility] s (07/02/2013 07:00:00) Mi dicil Center URINALYSIS UA Sq Epi Occasional /LPF Few 07/02 [facility] *NA* Medical (07/02/2013 07:00:00) Ce nter URINALYSIS UA Color Yellow Yellow 07/02 [facility] *NA Medical (07/02/2013 07:00:00) Ce nter URINALYSIS UA Turbidity Clear Clear 07/02 Normal [facility] (07/02/2013 07:00:00) Mi dical Center URINALYSIS UA Spec Grav 1.017 <=1.030 07/02 Normal [facility] URINALYSIS UA Ketones Negative mg/dL Negative 07/02 NA NA Medical (07/02/2013 07:00:00) Ce nter URINALYSIS UA WBC <1 0 - 5 07/02 Normal [facility] URINALYSIS UA RBC <1 0 - 2 07/02 Normal [facility] URINALYSIS UA pH 5.0 5.0 - 8.0 07/02 Normal [facility] URINALYSIS UA Protein Negative mg/dL Negative 07/02 Normal [facility] (07/02/2013 07:00:00) Mi dical Center URINALYSIS UA Glucose Negative mg/dL Negative 07/02 NA NA Medical (07/02/2013 07:00:00) Ce nter URINALYSIS UA Bili Negative Negative 07/02 NA NA Medical (07/02/2013 07:00:00) Ce nter URINALYSIS UA Blood Trace Negative 07/02 ABN ABN Medical (07/02/2013 07:00:00) Ce nter CHEMISTRY U Prot/Creat 0.2 06/07 NA Medical Center CHEMISTRY Calcium Lvl 9.3 8.5 - 10.5 06/07 Normal [facility] CHEMISTRY CO2 33 24 - 32 06/07 [facility] CHEMISTRY Potassium 4.4 3.5 - 5.1 06/07 Normal [facility] CHEMISTRY Sodium Lvl 140 135 - 145 06/07 Normal [facility] CHEMISTRY Creatinine 1.2 0.5 - 1.4 06/07 Normal [facility] CHEMISTRY BUN 21 7 - 22 06/07 Normal [facility] CHEMISTRY Chloride Lvl 101 95 - 109 06/07 Normal [facility] CHEMISTRY Glucose Lvl 91 70 - 99 06/07 Normal <sup>4</sup>I T ex nterpretive Medical Data: Adult Center reference range values reflect the clinical guidelines
of the [place] [employer]. CHEMISTRY eGFR 52 06/07 NA <sup>2</sup>R esult Medical Comment: The Center eGFR is calculated using the CKD-EPI formula. In most young, healthy individuals the eGFR will be >90 mL/min/1.73m2 . The eGFR declines with age. An eGFR of 60-89 may be normal in some populations, particularly the elderly, for whom the CKD-EPI formula has not been extensively validated. Use of the eGFR is not recommended in the following populations:& lt;br/>
I ndividuals with unstable creatinine concentration s, including patients and those with serious co-morbid conditions.<b r/>
Patie nts with extremes in muscle mass or diet.

The data above are obtained from the National Kidney Disease Education Program (NKDEP) which additionally recommends that when the eGFR is used in patients with extremes of body mass index for purposes of drug dosing, the eGFR should be multiplied by the estimated BMI. CHEMISTRY AGAP 10.4 10.0 - 20.0 06/07 Normal [facility] CHEMISTRY U Creatinine 265.8 06/07 NA <sup>6</sup>I nterpretive Medical Data: No Center established reference ranges. CHEMISTRY U Protein 63.1 06/07 NA <sup>8</sup>I nterpretive Medical Data: No Center established reference ranges. CHEMISTRY U Microalb 7.3 06/07 NA [facility] HEMATOLOGY MPV 9.0 7.4 - 10.4 06/07 Normal [facility] HEMATOLOGY Platelet 321 133 - 450 06/07 Normal [facility] HEMATOLOGY RDW 12.3 11.5 - 14.5 06/07 Normal [facility] HEMATOLOGY MCH 30.9 27.0 - 31.0 06/07 Normal 2012 [facility] HEMATOLOGY MCHC 33.6 32.0 - 36.0 06/07 Normal 2012 [facility] HEMATOLOGY WBC 6.4 3.7 - 10.4 06/07 Normal [facility] HEMATOLOGY Hgb 10.9 12.0 - 16.0 06/07 LOW [facility] HEMATOLOGY RBC 3.53 4.20 - 5.40 06/07 LOW [facility] HEMATOLOGY Hct 32.5 36.0 - 48.0 06/07 LOW [facility] HEMATOLOGY MCV 92.0 81.0 - 99.0 06/07 Normal [facility] HEMATOLOGY Basophils 0.7 0.0 - 1.0 06/07 Normal [facility] HEMATOLOGY Eosinophils 3.9 0.0 - 4.0 06/07 [place] [facility] HEMATOLOGY Monocytes 6.8 2.0 - 12.0 06/07 Normal [facility] HEMATOLOGY Lymphocytes 12.6 20.0 - 40.0 06/07 [place] [facility] HEMATOLOGY Monocytes # 0.4 0.0 - 0.8 06/07 [place] [facility] HEMATOLOGY Lymphocytes 0.8 1.0 - 5.5 06/07 [place] [facility] HEMATOLOGY Segs-Bands # 4.8 1.5 - 8.1 06/07 Normal [place] [facility] HEMATOLOGY Segs 76.0 45.0 - 75.0 06/07 [facility] HEMATOLOGY Eosinophils 0.2 0.0 - 0.5 06/07 [place] [facility] URINALYSIS UA CaOx [place] Many /HPF None Seen 06/07 [facility] [place]ABN Medical (06/07/2013 08:50:00) Ce nter URINALYSIS UA Mucus Few /LPF None Seen 06/07 [facility] *NA Medical (06/07/2013 08:50:00) Ce nter URINALYSIS UA Bacteria Occasional /HPF None [facility]2013 08:50:00[facility] Ce nter URINALYSIS UA WBC 2 0 - 5 06/07 Normal [facility] URINALYSIS UA Sq Epi Occasional /LPF Few 06/07 [facility] NA Medical (06/07/2013 08:50:00) Ce nter URINALYSIS UA RBC 5 0 - 2 06/07 [facility] URINALYSIS UA Leuk Est Negative Negative 06/07 [place] (06/07/2013 08:50:00) Mi dical Center URINALYSIS UA Blood Negative Negative 06/07 Normal [facility] (06/07/2013 08:50:00) Mi dicil Center URINALYSIS UA Nitrite Negative Negative 06/07 Normal [facility] (06/07/2013 08:50:00) Mi dicil Center URINALYSIS UA Bili Negative Negative 06/07 NA [facility] *NA* [facility] (06/07/2013 08:50:00) Ce nter URINALYSIS UA Protein 50 mg/dL Negative 06/07 ABN [facility] *ABN* [facility] (06/07/2013 08:50:00) Ce nter URINALYSIS UA Gran Cast 2 06/07 NA [facility] URINALYSIS UA 0.1 - 1.0 06/07 NA [facility] Urobilinogen [facility] URINALYSIS UA Glucose Negative mg/dL Negative 06/07 [facility] (06/07/2013 08:50:00) Ce nter URINALYSIS UA Ketones 20 mg/dL Negative 06/07 ABN [facility] *ABN* [facility] (06/07/2013 08:50:00) Ce nter URINALYSIS UA pH 6.0 5.0 - 8.0 06/07 Normal [facility] URINALYSIS UA Spec Grav 1.026 <=1.030 06/07 Normal [facility] URINALYSIS UA Turbidity Clear Clear 06/07 Normal [facility]06/07/2013 08:50:00[facility] Color Yellow Yellow 06/07 NA [facility] *NA* [facility] (06/07/2013 08:50:00) Ce nter Microbiolo Culture: 06/07 [facility] gy Urine [facility] CHEMISTRY eGFR 44 06/03 NA <sup>2</sup>R esult Medical Comment: The Center eGFR is calculated using the CKD-EPI formula. In most young, healthy individuals the eGFR will be >90 mL/min/1.73m2 . The eGFR declines with age. An eGFR of 60-89 may be normal in some populations, particularly the elderly, for whom the CKD-EPI formula has not been extensively validated. Use of the eGFR is not recommended in the following populations:& lt;br/>
I ndividuals with unstable creatinine concentration s, including patients and those with serious co-morbid conditions.<b r/>
Patie nts with extremes in muscle mass or diet.

The data above are obtained from the National Kidney Disease Education Program (NKDEP) which additionally recommends that when the eGFR is used in patients with extremes of body mass index for purposes of drug dosing, the eGFR should be multiplied by the estimated BMI. CHEMISTRY Glucose Lvl 100 70 - 99 06/03 [place] <sup>5</sup>I T ex nterpretive Medical Data: Adult Center reference range values reflect the clinical guidelines
of the [place] [employer]. CHEMISTRY BUN 11 7 - 22 06/03 [facility] CHEMISTRY Calcium Lvl 7.8 8.5 - 10.5 06/03 [facility] [place] [facility] CHEMISTRY Creatinine 1.4 0.5 - 1.4 06/03 [facility] CHEMISTRY Potassium 4.3 3.5 - 5.1 06/03 [facility] CHEMISTRY Sodium Lvl 143 135 - 145 06/03 [facility] CHEMISTRY CO2 26 24 - 32 06/03 [facility] CHEMISTRY Chloride Lvl 106 95 - 109 06/03 [facility] CHEMISTRY AGAP 15.3 10.0 - 20.0 06/03 [facility] HEMATOLOGY MPV 9.6 7.4 - 10.4 06/03 [facility] HEMATOLOGY Platelet 180 133 - 450 06/03 [facility]2012 [facility] HEMATOLOGY MCH 31.5 27.0 - 31.0 06/03 [facility] HEMATOLOGY MCHC 32.9 32.0 - 36.0 06/03 [facility]2012 [facility] HEMATOLOGY Hct 29.2 36.0 - 48.0 06/03 LOW [facility]2012 [facility] HEMATOLOGY RDW 13.0 11.5 - 14.5 06/03 [facility]2012 [facility] HEMATOLOGY MCV 96.0 81.0 - 99.0 06/03 [facility]2012 [facility] HEMATOLOGY WBC 9.8 3.7 - 10.4 / Normal [facility] HEMATOLOGY RBC 3.04 4.20 - 5.40 / LOW [facility] HEMATOLOGY Hgb 9.6 12.0 - 16.0 06/03 [facility] HEMATOLOGY Basophils 0.2 0.0 - 1.0 06/03 Normal [facility] HEMATOLOGY Monocytes 5.6 2.0 - 12.0 06/03 Normal [facility] HEMATOLOGY Segs 86.6 45.0 - 75.0 06/03 [place] [facility] HEMATOLOGY Eosinophils 0.3 0.0 - 4.0 06/03 [place] /2012 [facility] HEMATOLOGY Lymphocytes 7.3 20.0 - 40.0 06/03 [facility] [place] [facility] HEMATOLOGY Monocytes # 0.5 0.0 - 0.8 06/03 [place] [facility] HEMATOLOGY Segs-Bands # 8.5 1.5 - 8.1 06/03 [facility] [place] [facility] HEMATOLOGY Lymphocytes 0.7 1.0 - 5.5 06/03 [place] # /2012 [facility] CHEMISTRY Glucose Lvl 133 70 - 99 06/02 [place] <sup>6</sup>I T ex nterpretive Medical Data: Adult Center reference range values reflect the clinical guidelines
of the [place] [employer]. CHEMISTRY eGFR 44 06/02 NA <sup>3</sup>R esult Medical Comment: The Center eGFR is calculated using the CKD-EPI formula. In most young, healthy individuals the eGFR will be >90 mL/min/1.73m2 . The eGFR declines with age. An eGFR of 60-89 may be normal in some populations, particularly the elderly, for whom the CKD-EPI formula has not been extensively validated. Use of the eGFR is not recommended in the following populations:& lt;br/>
I ndividuals with unstable creatinine concentration s, including patients and those with serious co-morbid conditions.<b r/>
Patie nts with extremes in muscle mass or diet.

The data above are obtained from the National Kidney Disease Education Program (NKDEP) which additionally recommends that when the eGFR is used in patients with extremes of body mass index for purposes of drug dosing, the eGFR should be multiplied by the estimated BMI. CHEMISTRY AGAP 14.9 10.0 - 20.0 08/ [facility] CHEMISTRY Calcium Lvl 8.0 8.5 - 10.5 08 [facility] a s [facility] CHEMISTRY Chloride Lvl 105 95 - 109 08/ [facility] CHEMISTRY Sodium Lvl 143 135 - 145 08/ [facility] CHEMISTRY Potassium 3.9 3.5 - 5.1 06/02 [facility] CHEMISTRY BUN 11 7 - 22 08/ [facility] CHEMISTRY Creatinine 1.4 0.5 - 1.4 06/02 [facility] CHEMISTRY CO2 27 24 - 32 08 [facility] HEMATOLOGY MPV 9.4 7.4 - 10.4 06/02 [facility] HEMATOLOGY Platelet 206 133 - 450 06/02 [facility] HEMATOLOGY RDW 12.9 11.5 - 14.5 06/02 [facility] HEMATOLOGY MCHC 33.4 32.0 - 36.0 06/02 [facility] HEMATOLOGY MCH 31.4 27.0 - 31.0 06/02 [facility] HEMATOLOGY MCV 93.9 81.0 - 99.0 06/02 [facility] HEMATOLOGY RBC 3.20 4.20 - 5.40 06/02 [facility] HEMATOLOGY Hct 30.0 36.0 - 48.0 06/02 [facility] HEMATOLOGY Hgb 10.0 12.0 - 16.0 06/02 [facility] HEMATOLOGY WBC 13.4 3.7 - 10.4 06/02 [facility] HEMATOLOGY Segs-Bands # 11.9 1.5 - 8.1 06/02 [facility] [place] [facility] HEMATOLOGY Lymphocytes 0.8 1.0 - 5.5 06/02 [facility] [place] [facility] [place] HEMATOLOGY Basophils 0.2 0.0 - 1.0 06/02 [facility] HEMATOLOGY Monocytes 5.8 2.0 - 12.0 06/02 [facility] HEMATOLOGY Monocytes # 0.8 0.0 - 0.8 06/02 [place] [facility] HEMATOLOGY Lymphocytes 5.6 20.0 - 40.0 06/02 [place] [facility] HEMATOLOGY Segs 88.4 45.0 - 75.0 06/02 [place] [facility] CHEMISTRY AGAP 15.3 10.0 - 20.0 06/01 Normal [facility] CHEMISTRY CO2 24 24 - 32 06/01 Normal [facility] CHEMISTRY BUN 9 7 - 22 06/01 Normal [facility] CHEMISTRY Glucose Lvl 77 70 - 99 06/01 Normal <sup>7</sup>I T ex nterpretive Medical Data: Adult Center reference range values reflect the clinical guidelines
of the [place] [employer]. CHEMISTRY Creatinine 0.6 0.5 - 1.4 06/01 Normal [facility] CHEMISTRY Calcium Lvl 8.3 8.5 - 10.5 06/01 LOW [facility] CHEMISTRY Sodium Lvl 143 135 - 145 06/01 Normal [facility] CHEMISTRY Chloride Lvl 108 95 - 109 06/01 Normal [facility] CHEMISTRY eGFR 106 06/01 NA <sup>4</sup>R esult Medical Comment: The Center eGFR is calculated using the CKD-EPI formula. In most young, healthy individuals the eGFR will be >90 mL/min/1.73m2 . The eGFR declines with age. An eGFR of 60-89 may be normal in some populations, particularly the elderly, for whom the CKD-EPI formula has not been extensively validated. Use of the eGFR is not recommended in the following populations:& lt;br/>
I ndividuals with unstable creatinine concentration s, including patients and those with serious co-morbid conditions.<b r/>
Patie nts with extremes in muscle mass or diet.

The data above are obtained from the National Kidney Disease Education Program (NKDEP) which additionally recommends that when the eGFR is used in patients with extremes of body mass index for purposes of drug dosing, the eGFR should be multiplied by the estimated BMI. CHEMISTRY Magnesium 2.3 1.8 - 2.4 06/01 Normal [facility] CHEMISTRY Phosphorus 3.6 2.5 - 4.5 08/ Normal [facility] HEMATOLOGY Monocytes 8.9 2.0 - 12.0 08/ Normal [facility] HEMATOLOGY Lymphocytes 30.1 20.0 - 40.0 08/ [place] [facility] HEMATOLOGY Segs 55.8 45.0 - 75.0 08/ Normal [facility] HEMATOLOGY Basophils 1.1 0.0 - 1.0 08/ [place] [facility] HEMATOLOGY Segs-Bands # 2.0 1.5 - 8.1 08/ Normal [place] as /2012 [facility] HEMATOLOGY Eosinophils 4.1 0.0 - 4.0 08/ [facility] [place] [facility] HEMATOLOGY Eosinophils 0.1 0.0 - 0.5 08/ [place] # [facility] HEMATOLOGY Lymphocytes 1.1 1.0 - 5.5 / Normal [place] # /2012 [facility] HEMATOLOGY Monocytes # 0.3 0.0 - 0.8 / [place] [facility] HEMATOLOGY MCH 31.7 27.0 - 31.0 08/ [place] [facility] HEMATOLOGY MCV 93.3 81.0 - 99.0 08/ Normal [facility] HEMATOLOGY Hct 31.2 36.0 - 48.0 / LOW [facility] HEMATOLOGY Hgb 10.6 12.0 - 16.0 / [facility] HEMATOLOGY MCHC 34.0 32.0 - 36.0 / Normal [facility] HEMATOLOGY WBC 3.6 3.7 - 10.4 / LOW [facility] HEMATOLOGY RBC 3.34 4.20 - 5.40 / LOW [facility] HEMATOLOGY RDW 12.9 11.5 - 14.5 / Normal [facility] HEMATOLOGY Platelet 198 133 - 450 08/ Normal [facility] HEMATOLOGY MPV 9.4 7.4 - 10.4 08/ Normal [facility] HEMATOLOGY PTT 30.7 22.9 - 35.8 08/ Normal <sup>10</sup> Interpretive Medical Data: [facility]arin [facility] Therapeutic Range: 57 - 92 [facility] HEMATOLOGY PT 14.2 12.0 - 14.7 06/01 Normal [facility] HEMATOLOGY INR 1.08 0.85 - 1.17 06/01 Normal <sup>8</sup>I nterpretive Medical Data: Center RECOMMENDED RANGES FOR PROTIME INR:
2.0-3.0 for most medical and surgical thromboemboli c states.
2.5-3.5 for artificial heart valves and recurrent embolism.<br/ >
INR SHOULD BE USED ONLY FOR PATIENTS ON STABLE ANTICOAGULANT THERAPY. CHEMISTRY Potassium 4.3 3.5 - 5.1 06/01 Normal <sup>1</sup>[place] Lvl esult Medical Comment: Center Specimen Slightly Hemolyzed. BLOOD BANK RBC product Product available 06/01 Normal [facility] RESULTS (06/01/2013 00:37:00) [facility]A 0.1 - 1.0 06/01 NA [facility] Urobilinogen [facility] URINALYSIS UA Sq Epi None Seen 06/01 NA [facility] URINALYSIS UA Nitrite Negative Negative 06/01 Normal [facility] (05/31/2013 19:41:36) [facility]A Leuk Est Negative Negative 06/01 [place] (05/31/2013 19:41:36) Mi dicil Center URINALYSIS UA Blood Negative Negative 06/01 Normal [facility] (05/31/2013 19:41:36) [facility] UA Color Light Yellow Yellow 06/01 [place] *NA* [facility] (05/31/2013 19:41:36) Ce nter URINALYSIS UA Turbidity Clear Clear 06/01 Normal [facility] (05/31/2013 19:41:36) Mi dicil Center URINALYSIS UA Spec Grav 1.002 <=1.030 06/01 Normal [facility] URINALYSIS UA Protein Negative mg/dL Negative 06/01 Normal [facility] (05/31/2013 19:41:36) Mi dicil Center URINALYSIS UA pH 6.5 5.0 - 8.0 06/01 Normal [facility] URINALYSIS UA Glucose Negative mg/dL Negative 06/01 NA * Medical (05/31/2013 19:41:36) Ce nter URINALYSIS UA Ketones Negative mg/dL Negative 06/01 [facility] Medical (05/31/2013 19:41:36) Ce nter URINALYSIS UA Bili Negative Negative 06/01 * Medical (05/31/2013 19:41:36) Ce nter CHEMISTRY Albumin Lvl 3.7 3.5 - 5.0 05/31 Normal [facility] CHEMISTRY ALT 14 0 - 65 05/31 Normal [facility] CHEMISTRY Bili Total 0.8 0.2 - 1.3 05/31 Normal [facility] CHEMISTRY Alk Phos 103 39 - 136 05/31 Normal [facility] CHEMISTRY Total 6.7 6.4 - 8.4 05/31 Normal Protein [facility] CHEMISTRY Bili Direct 0.2 0.0 - 0.3 05/31 Normal [facility] CHEMISTRY AST 20 0 - 37 05/31 Normal [facility] CHEMISTRY A/G Ratio 1.2 0.7 - 1.6 05/31 Normal [facility] CHEMISTRY Bili 0.6 0.0 - 1.0 05/31 Normal [facility] Indirect [facility] CHEMISTRY Globulin 3.0 2.0 - 4.0 05/31 Normal [facility] HEMATOLOGY Eosinophils 2.4 0.0 - 4.0 05/31 [place] [facility] HEMATOLOGY Eosinophils 0.1 0.0 - 0.5 05/[address] [facility] HEMATOLOGY INR 1.01 0.85 - 1.17 05/31 Normal <sup>9</sup>I nterpretive Medical Data: Center RECOMMENDED RANGES FOR PROTIME INR:
2.0-3.0 for most medical and surgical thromboemboli c states.
2.5-3.5 for artificial heart valves and recurrent embolism.<br/ >
INR SHOULD BE USED ONLY FOR PATIENTS ON STABLE ANTICOAGULANT THERAPY. HEMATOLOGY PTT 30.3 22.9 - 35.8 05/31 Normal <sup>11</sup> Interpretive Medical Data: [facility] Center Therapeutic Range: 57 - 92 Seconds HEMATOLOGY PT 13.5 12.0 - 14.7 05/31 Normal [facility] BLOOD BANK ABO/Rh O POS 05/31 Unknown [facility] BLOOD BANK Antibody Negative 05/31 Normal [facility] RESULTS Scrn (05/31/2013 13:00:00) [facility] RBC product Product available 05/31 Normal [facility] RESULTS (05/31/2013 12:13:00) [facility] eGFR 74 05/28 NA <sup>2</sup>R esult Medical Comment: The Center eGFR is calculated using the CKD-EPI formula. In most young, healthy individuals the eGFR will be >90 mL/min/1.73m2 . The eGFR declines with age. An eGFR of 60-89 may be normal in some populations, particularly the elderly, for whom the CKD-EPI formula has not been extensively validated. Use of the eGFR is not recommended in the following populations:& lt;br/>
I ndividuals with unstable creatinine concentration s, including patients and those with serious co-morbid conditions.<b r/>
Patie nts with extremes in muscle mass or diet.

The data above are obtained from the National Kidney Disease Education Program (NKDEP) which additionally recommends that when the eGFR is used in patients with extremes of body mass index for purposes of drug dosing, the eGFR should be multiplied by the estimated BMI. CHEMISTRY Glucose Lvl 67 70 - 99 05/28 LOW <sup>3</sup>I T ex nterpretive Medical Data: Adult Center reference range values reflect the clinical guidelines
of the [place] [employer]. CHEMISTRY Sodium Lvl 146 135 - 145 05/28 [place] [facility] CHEMISTRY BUN 14 7 - 22 05/28 Normal [facility] CHEMISTRY Creatinine 0.9 0.5 - 1.4 05/28 Normal [facility] CHEMISTRY CO2 30 24 - 32 05/28 Normal [facility] CHEMISTRY Potassium 4.0 3.5 - 5.1 05/28 Normal [facility] CHEMISTRY Chloride Lvl 107 95 - 109 05/28 Normal [facility] CHEMISTRY Calcium Lvl 8.9 8.5 - 10.5 08/ Normal a [facility] CHEMISTRY AGAP 13.0 10.0 - 20.0 08/ Normal [facility] CHEMISTRY Phosphorus 3.4 2.5 - 4.5 08/ Normal [facility] CHEMISTRY U Preg Negative Negative 05/28 Normal [facility] (05/28/2013 07:20:00) [facility] HEMATOLOGY MCV 93.7 81.0 - 99.0 08/ Normal [facility] HEMATOLOGY Hgb 11.5 12.0 - 16.0 08/ LOW [facility] HEMATOLOGY MCH 31.9 27.0 - 31.0 08/ [place] [facility] HEMATOLOGY Hct 33.7 36.0 - 48.0 08/ LOW [facility] HEMATOLOGY MCHC 34.1 32.0 - 36.0 08/ Normal [facility] HEMATOLOGY MPV 9.3 7.4 - 10.4 08/ Normal [facility] HEMATOLOGY RDW 13.0 11.5 - 14.5 08/ Normal [facility] HEMATOLOGY Platelet 209 133 - 450 08/ Normal [facility] HEMATOLOGY RBC 3.60 4.20 - 5.40 08/ LOW [facility] HEMATOLOGY WBC 4.7 3.7 - 10.4 08/ Normal [facility] HEMATOLOGY Eosinophils 0.2 0.0 - 0.5 08/ [place] [facility] HEMATOLOGY Basophils 1.0 0.0 - 1.0 08/ Normal [facility] HEMATOLOGY Monocytes # 0.3 0.0 - 0.8 08/ [place] [facility] HEMATOLOGY Eosinophils 3.5 0.0 - 4.0 08/ [place] [facility] HEMATOLOGY Segs-Bands # 3.0 1.5 - 8.1 08/ Normal [place] [facility] HEMATOLOGY Lymphocytes 1.2 1.0 - 5.5 08/ [place] [facility] HEMATOLOGY Monocytes 6.5 2.0 - 12.0 08/05 Normal [facility] HEMATOLOGY Segs 64.2 45.0 - 75.0 / Normal [facility] HEMATOLOGY Lymphocytes 24.8 20.0 - 40.0 05/28 Normal [facility] xa [facility] HEMATOLOGY INR 0.97 0.85 - 1.17 05/28 Normal <sup>4</sup>I nterpretive Medical Data: Center RECOMMENDED RANGES FOR PROTIME INR:
2.0-3.0 for most medical and surgical thromboemboli c states.
2.5-3.5 for artificial heart valves and recurrent embolism.<br/ >
INR SHOULD BE USED ONLY FOR PATIENTS ON STABLE ANTICOAGULANT THERAPY. HEMATOLOGY PTT 29.5 22.9 - 35.8 05/28 Normal <sup>5</sup>I nterpretive Medical Data: Heparin Center Therapeutic Range: 57 - 92 Seconds HEMATOLOGY PT 13.1 12.0 - 14.7 05/28 Normal [facility] IMMUNOLOGY Hep B Core Negative Negative 05/28 [facility] Ab *NA* /2012 [facility] (05/28/2013 07:20:00) nt IMMUNOLOGY Hep Bs Ab 2.7 <=7.4 05/28 Normal <sup>7</sup>I [facility] nterpretive Medical Data: <=7.4 Center mIU/mL------- -Negative for Anti-HBs. Not immune to HBV infection.

7.5-12 .4 mIU/mL--Borde paula for Anti-HBs and immune status
should be further assessed by considering other factors such
as clinical status follow-up testing, associated risk factors,
and the use of additional diagnostic information.< br/>
>12. 4 mIU/mL------- Positive for Anti-HBs. Immune to HBV infection IMMUNOLOGY Hep Be Ag NONREACTIV 05/28 NA <sup>8</sup>R [facility] esult Medical Comment: Center REFERENCE RANGES: NONREACTIVE<b r/>Test Performed at:
[facility]
[address] [place] [address] Sandra Henriquez MD IMMUNOLOGY Hep Bs Ag Negative Negative 05/28 NA *NA* /2012 Medical (05/28/2013 07:20:00) Ce nter IMMUNOLOGY Hep C Ab Negative Negative 05/28 [facility] *NA* Medical (05/28/2013 07:20:00) Ce nter IMMUNOLOGY HIV 1/2 Ab Negative Negative 05/28 *NA* Medical (05/28/2013 07:20:00) Ce nter IMMUNOLOGY Source WHOLE 05/28 [facility] IMMUNOLOGY EBV PCR Qnt <200 05/28 NA <sup>6</sup>R esult Medical Comment: Center REFERENCE RANGE: <200 copies/mL<br/ >
This test was developed and its performance<b r/>characteri stics have been determined by [facility]. It has not been cleared or approved
by the U.S. Food and Drug Administratio n. The FDA
has determined that such clearance or approval is
not necessary. Performance characteristi cs refer
to the analytical performance of the test.
Charlene t Performed at:
[facility]
[address] [place] [address] Sandra Henriquez MD INFECTIOUS CMV PCR Qnt <2.4 05/28 NA <sup>1</sup>I [facility] DISEASES (log) nterpretive Medical Data: Center Analytic Quantificatio n Range: 250-2,500,000 copies/mL (2.4-6.4 log)
<br/ >CMV DNA detected below 250 copies/mL will be resulted as "CMV DNA
detec anderson, less than 250 copies/mL."<b r/>
No target CMV DNA detected will be reported as "CMV DNA not
detec anderson." A negative result does not rule out the possibility<b r/>of the presence of Cytomegalovir us. The specimen may contain CMV
below the detectable limits of the assay.
<b r/>The human Cytomegalovir us (CMV) is a DNA virus belonging to the herpes virus family. The CMV Virus assay targets a 105 base pair region of the CMV virus genome.
< br/>This assay utilizes analyte specific (ASR) reagents for Real-Time nucleic acid amplification (PCR). Results should not be used as the sole basis for clinical diagnosis, treatment or patient management. Performance characteristi cs have been verified by the Molecular Diagnostic [facility] within [facility]. The Molecular Diagnostic Laboratory is authorized under the Clinical Laboratory Improvement Amendments of 1988 (CLIA-88) to perform high complexity testing. INFECTIOUS Source CMV Blood 05/28 NA [facility] DISEASES PCR Qnt *NA* [facility] (05/28/2013 07:20:00) Ce nter INFECTIOUS CMV PCR Qnt Negative Negative 05/28 Normal [facility] DISEASES (05/28/2013 07:20:00) [facility] URINALYSIS UA 0.1 - 1.0 05/28 NA [facility] Urobilinogen /2012 [facility] URINALYSIS UA Leuk Est Negative Negative 05/28 Normal [facility]05/28/2013 07:20:00) [facility] RBC 2 0 - 2 05/28 Normal [facility] URINALYSIS UA WBC 1 0 - 5 05/28 Normal [facility] URINALYSIS UA Nitrite Negative Negative 05/28 Normal [facility] (05/28/2013 07:20:00) [facility] URINALYSIS UA Sq Epi Few /LPF Few 05/28 NA *NA [facility] (05/28/2013 07:20:00) Ce nter URINALYSIS UA Turbidity Clear Clear 05/28 Normal [facility] (05/28/2013 07:20:00) Mi dical Center URINALYSIS UA pH 5.5 5.0 - 8.0 05/28 Normal [facility] URINALYSIS UA Color Yellow Yellow 05/28 NA *NA* [facility] (05/28/2013 07:20:00) Ce nter URINALYSIS UA Spec Grav 1.025 <=1.030 05/28 Normal [facility] URINALYSIS UA Blood Small Negative 05/28 ABN [facility] *ABN* [facility] (05/28/2013 07:20:00) Ce nter URINALYSIS UA Glucose Negative mg/dL Negative 05/28 NA [facility] *NA* Medical (05/28/2013 07:20:00) Ce nter URINALYSIS UA Protein 10 mg/dL Negative 05/28 ABN [facility] *ABN* Medical (05/28/2013 07:20:00) Ce nter URINALYSIS UA Bili Negative Negative 05/28 [facility] (05/28/2013 07:20:00) Ce nter URINALYSIS UA Ketones Negative mg/dL Negative 05/28 [facility] *NA* Medical (05/28/2013 07:20:00) Ce nter URINALYSIS UA Renal Epi 1 <=0 05/28 HI [facility] URINALYSIS UA Mucus Few /LPF None [facility]en 05/[facility] (05/28/2013 07:20:00) Ce nter Microbiolo Culture: 05/28 [facility] gy Urine [facility] CHEMISTRY eGFR 86 03/28 NA <sup>2</sup>R esult Medical Comment: The Center eGFR is calculated using the CKD-EPI formula. In most young, healthy individuals the eGFR will be >90 mL/min/1.73m2 . The eGFR declines with age. An eGFR of 60-89 may be normal in some populations, particularly the elderly, for whom the CKD-EPI formula has not been extensively validated. Use of the eGFR is not recommended in the following populations:& lt;br/>
I ndividuals with unstable creatinine concentration s, including patients and those with serious co-morbid conditions.<b r/>
Patie nts with extremes in muscle mass or diet.

The data above are obtained from the National Kidney Disease Education Program (NKDEP) which additionally recommends that when the eGFR is used in patients with extremes of body mass index for purposes of drug dosing, the eGFR should be multiplied by the estimated BMI. CHEMISTRY POC 0.8 0.5 - 1.4 03/28 Normal [facility] Creatinine [facility] CHEMISTRY U Alb/Crea <16.2 <=30.0 03/09 Normal [facility]2012 [facility] CHEMISTRY U Microalb <5.0 03/09 [facility] CHEMISTRY U Creatinine 30.8 03/09 NA <sup>7</sup>I nterpretive Medical Data: No Center established reference ranges. CHEMISTRY U Protein 9.0 03/09 NA <sup>9</sup>I [place] nterpretive Medical Data: No Center established reference ranges. BLOOD BANK ABO/Rh O POS 03/09 Unknown RESULTS [facility] Center BLOOD BANK ABO/Rh O POS 03/09 Unknown RESULTS [facility] CHEMISTRY Opiate Scr Negative Negative 03/09 Normal [place] (03/09/2013 07:05:00) Mi dicil Center CHEMISTRY Methadone Negative Negative 03/09 Normal [facility] Scr (03/09/2013 07:05:00) [facility] Propoxyphn Negative Negative 03/09 Normal [facility] Scr (03/09/2013 07:05:00) [facility] PCP Scr Negative Negative 03/09 Normal [facility] (03/09/2013 07:05:00) [facility] Cutoff See Note 6 03/09 Normal <sup>6</sup>[place] Values (03/09/2013 07:05:00) nterpretiv e Medical Data: Cutoff Center (lowest detectable by EIA) values for Serum Drugscreen:<b r/> THC and PCP: 1 ng/mL
All others: 20 ng/mL

Cutoff (lowest detectable by GC/MS) value for confirmation:
THC and PCP: 1 ng/mL
Benzodiazepi leoncio: 5 ng/ml
All others: 10 ng/ml

Test performed by [facility] [place] [address] CHEMISTRY Joanne Scr Negative Negative 03/09 Normal [facility] (03/09/2013 07:05:00) Mi dical Center CHEMISTRY Cannab Scr Negative Negative 03/09 Normal [facility] (03/09/2013 07:05:00) Mi dical [place] CHEMISTRY Benzodiaz Negative Negative 03/09 Normal [place] Scr (03/09/2013 07:05:00) Mi dical Center CHEMISTRY Cocaine Scr Negative Negative 03/09 Normal [facility] (03/09/2013 07:05:00) Mi dical Center CHEMISTRY Amph Scr Negative Negative 03/09 Normal [facility] (03/09/2013 07:05:00) [facility] LDH 193 98 - 192 03/09 HI [facility] CHEMISTRY Phosphorus 3.3 2.5 - 4.5 03/09 Normal [facility] CHEMISTRY Uric Acid 2.3 2.5 - 7.0 03/09 LOW [facility] CHEMISTRY U Alb/Crea 5.7 <=30.0 03/09 Normal [facility] CHEMISTRY U Creatinine 92.9 03/09 NA <sup>8</sup>I nterpretive Medical Data: No Center established reference ranges. CHEMISTRY U Microalb 5.3 03/09 NA [facility] CHEMISTRY U Protein 15.2 03/09 NA <sup>10</sup> Matt Interpretive Medical Data: No Center established reference ranges. CHEMISTRY eGFR 86 03/09 NA <sup>3</sup>R esult Medical Comment: The Center eGFR is calculated using the CKD-EPI formula. In most young, healthy individuals the eGFR will be >90 mL/min/1.73m2 . The eGFR declines with age. An eGFR of 60-89 may be normal in some populations, particularly the elderly, for whom the CKD-EPI formula has not been extensively validated. Use of the eGFR is not recommended in the following populations:& lt;br/>
I ndividuals with unstable creatinine concentration s, including patients and those with serious co-morbid conditions.<b r/>
Patie nts with extremes in muscle mass or diet.

The data above are obtained from the National Kidney Disease Education Program (NKDEP) which additionally recommends that when the eGFR is used in patients with extremes of body mass index for purposes of drug dosing, the eGFR should be multiplied by the estimated BMI. CHEMISTRY AST 13 0 - 37 03/09 Normal [facility] CHEMISTRY Total 8.2 6.4 - 8.4 03/09 Normal [facility] CHEMISTRY CO2 28 24 - 32 03/09 Normal [facility] CHEMISTRY Calcium Lvl 9.8 8.5 - 10.5 03/09 [facility] CHEMISTRY Chloride Lvl 102 95 - 109 03/09 Normal [facility] CHEMISTRY Potassium 4.0 3.5 - 5.1 03/09 Normal [facility] CHEMISTRY Sodium Lvl 140 135 - 145 03/09 Normal [facility] CHEMISTRY Creatinine 0.8 0.5 - 1.4 03/09 Normal [facility] CHEMISTRY BUN 15 7 - 22 03/09 Normal [facility] CHEMISTRY Glucose Lvl 87 70 - 99 03/09 Normal <sup>4</sup>I T ex nterpretive Medical Data: Adult Center reference range values reflect the clinical guidelines
of the [place] [employer]. CHEMISTRY Alk Phos 121 39 - 136 03/09 Normal [facility] CHEMISTRY Albumin Lvl 4.0 3.5 - 5.0 03/09 Normal [facility] CHEMISTRY Bili Total 1.1 0.2 - 1.3 03/09 Normal [facility] CHEMISTRY ALT 17 0 - 65 03/09 Normal [facility] CHEMISTRY A/G Ratio 1.0 0.7 - 1.6 03/09 Normal [facility] CHEMISTRY Globulin 4.2 2.0 - 4.0 03/09 [place] [facility] CHEMISTRY AGAP 14.0 10.0 - 20.0 03/09 Normal [facility] CHEMISTRY B/C Ratio 19 6 - 25 03/09 Normal [facility] CHEMISTRY HDL 74 >=35 03/09 Normal [facility] CHEMISTRY Chol 158 120 - 200 03/09 Normal [facility] CHEMISTRY Trig 56 0 - 200 03/09 Normal [facility] CHEMISTRY LDL 73 0 - 129 03/09 Normal [facility] CHEMISTRY CHD Risk 2.14 3.90 - 5.80 03/09 LOW [facility] CHEMISTRY Hgb A1C 4.9 03/09 NA <sup>5</sup>I nterpretive Medical Data: HbA1C% Center eAG(mg/dL) Interpretatio n
6.0 126 Very good control
6.5 140 Very good control
7.0 154 Good Control
7.5 169 Good Control
8.0 183 Marginal Control, take action to lower
8.5 197 Marginal Control, take action to lower
9.0 212 Poor Control, take action to lower
9.5 226 Poor Control, take action to lower
10. 0 240 Poor Control, take action to lower HEMATOLOGY Segs 58.9 45.0 - 75.0 03/09 Normal [facility] HEMATOLOGY Segs-Bands # 2.5 1.5 - 8.1 03/09 Normal [place] [facility] HEMATOLOGY Basophils 0.8 0.0 - 1.0 03/09 Normal 2012 [facility] HEMATOLOGY Lymphocytes 1.3 1.0 - 5.5 03/[address] [facility] HEMATOLOGY Eosinophils 0.1 0.0 - 0.5 03/[address] [facility] HEMATOLOGY Monocytes # 0.3 0.0 - 0.8 03/09 [place] [facility] HEMATOLOGY Monocytes 8.0 2.0 - 12.0 03/09 Normal [facility] HEMATOLOGY Eosinophils 2.0 0.0 - 4.0 03/09 Normal [facility] 2012 [facility] HEMATOLOGY Lymphocytes 30.3 20.0 - 40.0 03/09 [place] [facility] HEMATOLOGY INR 1.00 0.85 - 1.17 03/09 Normal <sup>11</sup> Interpretive Medical Data: Center RECOMMENDED RANGES FOR PROTIME INR:
2.0-3.0 for most medical and surgical thromboemboli c states.
2.5-3.5 for artificial heart valves and recurrent embolism.<br/ >
INR SHOULD BE USED ONLY FOR PATIENTS ON STABLE ANTICOAGULANT THERAPY. HEMATOLOGY PTT 34.5 22.9 - 35.8 03/09 Normal <sup>12</sup> Interpretive Medical Data: Heparin Center Therapeutic Range: 57 - 92 Seconds HEMATOLOGY PT 13.4 12.0 - 14.7 03/09 Normal [facility] HEMATOLOGY MPV 9.1 7.4 - 10.4 03/09 Normal [facility] HEMATOLOGY Platelet 259 133 - 450 03/09 Normal [facility] HEMATOLOGY Hct 39.9 36.0 - 48.0 03/09 Normal [facility] HEMATOLOGY MCH 31.9 27.0 - 31.0 03/09 HI [facility] HEMATOLOGY MCV 92.9 81.0 - 99.0 03/09 Normal [facility] HEMATOLOGY RDW 12.7 11.5 - 14.5 03/09 Normal [facility] HEMATOLOGY MCHC 34.3 32.0 - 36.0 03/09 Normal [facility] HEMATOLOGY Hgb 13.7 12.0 - 16.0 03/09 Normal [facility] HEMATOLOGY RBC 4.29 4.20 - 5.40 03/09 Normal [facility] HEMATOLOGY WBC 4.2 3.7 - 10.4 03/09 Normal [facility] IMMUNOLOGY CMV IgG Reactive Non Reactive 03/09 [facility] [place] *ABN* Medical (03/09/2013 07:05:00) Ce nter IMMUNOLOGY EBV VCA IgM 0.2 <=0.8 03/09 Normal <sup>15</sup> Interpretive Medical Data: Center Antibody Index (AI) Results Interpretatio n
------- ------- ---------<br/ >0.0-0.8 Negative No detectable IgM Antibody.<br/ >0.9-1.0 Equivocal Repeat testing suggested in
10-14 days.
>=1 .10 Positive Significant level of detectable
IgM Antibody, indicative of
current or recent infection. IMMUNOLOGY EBV VCA IgG >8.0 <=0.8 03/09 [place] <sup>14</sup> Interpretive Medical Data: Center Antibody Index (AI) Results Interpretatio n
------- ------- --
0.0-0. 8 Negative No detectable IgG Antibody.<br/ >0.9-1.0 Equivocal Repeat testing suggested in
10-14 days.
>=1 .10 Positive Indicates presence of detectable
IgG Antibody. IMMUNOLOGY CMV IgM 0.2 03/09 NA <sup>13</sup> [place] /2012 Interpretive Medical Data: Center Reference Ranges:
Non-reactive: <0.9 S/CO Ratio
Indeterminate : 0.9 - 1.0 S/CO Ratio
Reactive: >=1.1 S/CO Ratio IMMUNOLOGY Varicella 0.62 03/09 NA <sup>17</sup> [facility] [place] IgM /2012 Result Medical Comment: Center Reference range: < or = 0.90

Interpre tive criteria:<br/ > 0.00-0.90 Negative
0.91-1.09 Equivocal<br/ > > or = 1.10 Positive

Results from any one IgM assay should not be used
as a sole determinant of a current or recent
in fection. Because an IgM test can yield false
pos itive results and low levels of IgM antibody
may persist for more than 12 months post
infe ction, reliance on a single test result could
be misleading. If an acute infection is suspected,
consider obtaining a new specimen and submit for
both IgG and IgM testing in two or more weeks.
Te st Performed at:
[facility] [employer]
[address] [place] [address] Kat Dominguez MD IMMUNOLOGY HTLV I/II Ab NONREACTIV NONREACTIVE 03/09 NA <sup>20</ sup> [facility] E Result Medical Comment: Center
The HTLV-I/HTLV-I I antibody test is FDA
cl eared/approve d to screen donors. Use for
scree jonathan in non-donors has been validated by
[facility].
Test Performed at:
[place]<br/ >[facility], [id number] [place] [address] Prince Soto MD IMMUNOLOGY HSV 2 IgG >8.0 <=0.8 03/09 [place] <sup>19</sup> [place] Interpretive Medical Data: Center Antibody Index (AI) Results Interpretatio n
------- ------- --
0.0-0. 8 Negative No detectable IgG Antibody.<br/ >0.9-1.0 Equivocal Repeat testing suggested in
10-14 days.
>=1 .10 Positive Indicates presence of detectable
IgG Antibody. IMMUNOLOGY HSV 1 IgG <0.2 <=0.8 03/09 Normal <sup>18</sup> [place] Interpretive Medical Data: Center Antibody Index (AI) Results Interpretatio n
------- ------- --
0.0-0. 8 Negative No detectable IgG Antibody.<br/ >0.9-1.0 Equivocal Repeat testing suggested in
10-14 days.
>=1 .10 Positive Indicates presence of detectable
IgG Antibody. IMMUNOLOGY Varicella 2.0 <=0.8 03/09 [place] <sup>16</sup> [place] Interpretive Medical Data: Center Antibody Index (AI) Results Interpretatio n
------- ------- --
0.0-0. 8 Negative No detectable IgG Antibody.<br/ >0.9-1.0 Equivocal Repeat testing suggested in
10-14 days.
>=1 .10 Positive Indicates presence of detectable
IgG Antibody. IMMUNOLOGY RPR Non Reactive Non Reactive 03/09 Normal [facility] (03/09/2013 07:05:00) Mi dical [place] IMMUNOLOGY Hep C Ab Negative Negative 03/09 [facility] * [facility] (03/09/2013 07:05:00) nt IMMUNOLOGY Hep Bs Ab <1.0 <=7.4 03/09 Normal <sup>23</sup> [place] Interpretive Medical Data: <=7.4 Center mIU/mL------- -Negative for Anti-HBs. Not immune to HBV infection.

7.5-12 .4 mIU/mL--Reji mitchell for Anti-HBs and immune status
should be further assessed by considering other factors such
as clinical status follow-up testing, associated risk factors,
and the use of additional diagnostic information.< br/>
>12. 4 mIU/mL------- Positive for Anti-HBs. Immune to HBV infection IMMUNOLOGY Hep B Core Negative Negative 03/09 [facility] Ab * [facility] (03/09/2013 07:05:00) [facility] IMMUNOLOGY Hep Bs Ag Negative Negative 03/09 [facility] (03/09/2013 07:05:00) [facility] IMMUNOLOGY HIV 1/2 Ab Negative Negative 03/09 [facility] (03/09/2013 07:05:00) [facility] IMMUNOLOGY NIL 0.05 03/09 [facility] IMMUNOLOGY TB - NIL <0.00 03/09 NA <sup>22</sup> [place] Result Medical Comment: The Center Nil tube value is used to determine if the patient
h as a preexisting immune response which could cause a
false-po sitive reading on the test. In order for a
test to be valid, the Nil tube must have a value of
less than or equal to 8.0 IU/mL.

The mitogen control tube is used to assure the patient
has a healthy immune status and also serves as a
control for correct blood handling and incubation. It
is used to detect false-negativ e readings. The mitogen
tube must have a gamma interferon value of greater
than or equal to 0.5 IU/mL higher than the value of
the Nil tube.

The TB antigen tube is coated with the M. tuberculosis< br/>specific antigens. For a test to be considered
positive , the TB antigen tube value minus the Nil tube
value must be greater than or equal to 0.35 IU/mL.<br/ >
For additional information, please refer to
http://[email or web address]/faq/QFT<b r/>(This link is being provided for informational /
educati onal purposes only.)

Test Performed at:
[employer] [place]<br/&g t;[address] [place] [address]
[place] [address] YASMINE ZIMMERMAN M.D. IMMUNOLOGY Quantiferon NEGATIVE NEGATIVE 03/09 NA <sup>21</sup> [facility] - TB Gold Result Medical Comment: Center Negative test result. M. tuberculosis complex
infectio n unlikely. IMMUNOLOGY Mitogen - >10.00 03/09 NA [facility] NIL /2012 Medical Center INFECTIOUS Source BK Plasma 03/09 NA [facility] DISEASES Virus PCR /2012 Medical Qnt Center INFECTIOUS BK Virus PCR Negative Negative 03/[address] [facility] as DISEASES Qnt (03/09/2013 07:05:00) /2012 [facility] INFECTIOUS BK Virus PCR <2.0 03/09 NA <sup>1</sup>I [facility] DISEASES Qnt (log) nterpretive Medical Data: Center Analytic Quantificatio n Range: 100-400,000,0 00 copies/mL (2.0-8.6 log)
<br/ >BK DNA detected below 100 copies/mL will be resulted as "BK DNA
detec anderson, less than 100 copies/mL."<b r/>
No target BK DNA detected will be reported as "BK DNA not detected."
A negative result does not rule out the possibility of the presence
of the BK virus. The specimen may contain BK below the detectable
limits of the assay.
<b r/>The BK Virus is a DNA virus belonging to the polyomaviruse s. The BK Virus assay targets a 274 base pair region of the BK virus genome.
& lt;br/>This assay utilizes analyte specific (ASR) reagents for Real-Time nucleic acid amplification (PCR). Results should not be used as the sole basis for clinical diagnosis, treatment or patient management. Performance characteristi cs have been verified by the Molecular Diagnostic [facility] within [facility]. The Molecular Diagnostic Laboratory is authorized under the Clinical Laboratory Improvement Amendments of 1988 (CLIA-88) to perform high complexity testing. URINALYSIS Micro? Not Indicated 03/09 [facility] [place] *NA* [facility] (03/09/2013 07:05:00) Ce nter URINALYSIS UA RBC 2 0 - 2 03/09 [facility] /2012 [facility] URINALYSIS UA Mucus Few /LPF None Seen 03/[facility] (03/09/2013 07:05:00) Ce nter URINALYSIS UA 0.1 - 1.0 03/09 [facility] Urobilinogen /2012 [facility] URINALYSIS UA Nitrite Negative Negative 03/09 [facility] (03/09/2013 07:05:00) [facility] URINALYSIS UA Ketones Negative mg/dL Negative 03/09 [facility] *NA* [facility] (03/09/2013 07:05:00) Ce nter URINALYSIS UA Blood Negative Negative 03/09 [facility] (03/09/2013 07:05:00) [facility] URINALYSIS UA Bili Negative Negative 03/09 [facility] *NA* [facility] (03/09/2013 07:05:00) Ce nter URINALYSIS UA Glucose Negative mg/dL Negative 03/09 [facility] *NA* [facility] (03/09/2013 07:05:00) Ce nter URINALYSIS UA Protein Negative mg/dL Negative 03/09 [facility] (03/09/2013 07:05:00) [facility] UA Leuk Est Negative Negative 03/09 [place] (03/09/2013 07:05:00) Mi dicil Center URINALYSIS UA WBC <1 0 - 5 03/09 Normal [facility] URINALYSIS UA Spec Grav 1.012 <=1.030 03/09 Normal [facility] URINALYSIS UA pH 7.0 5.0 - 8.0 03/09 Normal [facility] URINALYSIS UA Turbidity Clear Clear 03/09 Normal [facility] (03/09/2013 07:05:00) [facility] UA Color Yellow Yellow 03/09 NA [facility] *NA* /2012 [facility] (03/09/2013 07:05:00) Ce nter Microbiolo Culture: 03/09 [facility] gy Urine [facility] Pathology Reports No Data Provided for This Section Diagnostic Reports Report Value Date Source Spine cervical wo PROCEDURE INFORMATION: 10/19/2019 MONROE Jones contrast MRI Exam: MR Cervical Spine Without Contrast Exam date and time: 10/19/2019 1:31 PM Age: 59 years old Clinical indication: Cervicalgia; Additional inf o: M54.2 cervicalgia/m54.2 cervicalgia TECHNIQUE: Imaging protocol: Multiplanar magnetic resonance images of the cervical spine without contrast. COMPARISON: No relevant prior studies available. FINDINGS: Vertebrae: There is no fracture or subluxation o f the vertebrae Spinal cord: There is no myleomalacia or cord ed maylin. There is no tonsillar ectopia. The C1/C2 articulation is intact. There is normal flow from both vertebral arteries. C2-C3: No significant disc disease. No significa nt spinal stenosis. C3-C4: At the C3-C4 disc space, there is fusion of the right facet joint. C4-C5: At the C4-C5 disc space, there is hypertr ophic change right uncovertebral joint with minimal to moderate for aminal stenosis. C5-C6: At the C5-C6 disc space, there is hypertr ophic change to ligamentum flavum without central or foraminal stenosis. C6-C7: At the C6-C7 disc space, there is a 1.5 m m central protrusion and hypertrophic change to ligamentum flavum without central canal stenosis. There is minimal left foraminal stenosis with hypertro phic change of uncovertebral joint. C7-T1: No significant disc disease. No significa nt spinal stenosis. Vertebral arteries: Expected flow voids in the v ertebral arteries. Soft tissues: The prevertbral soft tissues are n ormal. IMPRESSION: Multilevel discogenic disease is pre sent as described. Mandeep Morales MD On 10/19/2019 14:20:13; VR-B [id number] Shoulder wo contrast PROCEDURE INFORMATION: 10/19/2019 MH O PID [facility] MRI Exam: MR Right Upper Extremity Joint Without Con trast; Shoulder Exam date and time: 10/19/2019 1:01 PM Age: 59 years old Clinical indication: Pain in unspecified shoulde r; Additional info: M25.519 pain in unspecified shoulder/m25.519 pain in uns pecified shoulder TECHNIQUE: Imaging protocol: MR of the Right upper extremit y without contrast. Exam focused on the shoulder. COMPARISON: No relevant prior studies available. FINDINGS: TENDONS: Supraspinatus tendon: Supraspinatus tendinosis i s noted. There is bursal surface fibrillation and fraying and likely part ial-thickness bursal surface tearing. Abnormal portion of the tendon measures approximately 1.3 cm AP dimension. There is also a small focus of irregu larity along the articular surface. No high-grade or full-thickness tears. Infraspinatus tendon: Infraspinatus tendinosis w ithout additional tear. Subscapularis tendon: Unremarkable. No evidence of tear. Teres minor tendon: Unremarkable. No evidence of tear. Biceps brachii, long head tendon: Unremarkable. No evidence of tear. LIGAMENTS: Glenohumeral ligaments: Unremarkable. Glenoid labrum: Unremarkable. No evidence of tea r. Bones/joints: The mild acromioclavicular osteoarthrosis. Type 1 acromion. Mild fluid in subacromial/subdeltoid bursa. Glenohume ral joint is intact. Chondral surfaces appear preserved. No loose bodies. Joint fluid: No joint effusion. Muscles: Unremarkable. IMPRESSION: 1. Moderate supraspinatus tendinosis. Evidence o f bursal surface irregularity with extensive tendon fraying and partia l-thickness bursal surface tearing. No definite full-thickness tears. 2. Mild acromioclavicular osteoarthrosis. Jose Angel Romero MD On 10/19/2019 14:58:16; V [id number] Abdomen/Pelvis wo EXAM: CT ABDOMEN AND PELVIS without CONTRAST 0 07/02/2013 [facility] contrast CT Center DATE: Jul 02, 2013 12:19:31 PM INDICATION: Acute abdominal pain. ADDITIONAL INFORMATION: Status post kidney donat ion on 06/01/2013. COMPARISON: None. TECHNIQUE: Helical acquisiti on of the abdomen and pelvis was obtained from the lung bases to the symphysis pubis. Axial, sagittal and coronal images were interpreted. FINDINGS: The lung bases, pleura and v isualized portions of the heart and pericardium are clear. Previously seen too small to characterize hypodensities within the liver are again identified. The bile ducts, gallbladder, spleen, pancreas, and adrenals show no significant abnormalities. Stomach is normal. Visualize d small bowel have normal caliber. There are few sigmoid diverticula without diverticulitis. There is a moderate amount of colonic stool. The appendix is normal in appearance . No mesenteric abnormalities. No free fluid or free air. The left kidney is surgicall y absent. There are associated surgical clips within the region of the left renal bed. The right kidney appears without significant abnormality on this noncontrast study. The bladder is under distended. The uterus and adnexa are surgically absent. There is trace pelvic free fluid. Aorta and IVC have normal ca liber. Abdominal and pelvic lymph nodes are not enlarged. No retroperitoneal abnormalities. Osseus structures demonstrat e degenerative changes, but no worrisome lesions. No subcutaneous/soft tissue abnormalities. IMPRESSION: 1. No acute abdominal abnormality to explain abd ominal pain. 2. Multiple too small to characterize hepatic hy podensities again seen. Chest 1view EXAM: Chest 1view , 06/03/2013 [facility] Center DATE: Jun 03, 2013 08:52:00 PM INDICATION: Trauma /See Clinic Indication . FINDINGS: A portable frontal chest radiograph is compared to May 31, 2013 at 1256 hours. There is free air under the right hemidiaphragm and outlining the falciform ligament. Surgical clips project ov er the left upper quadrant. There is a left retrocardiac opacity which may represent atelectasis versus pneumonia. Chronic lung changes are noted as before. The cardiomediastinal silhouette, remaining soft tissues and osseous structures are unchange d. IMPRESSION: 1. Left retrocardiac opacity may represent combination of atelectasis/consolidation/pneumonia. 2. Free intraperitoneal air. Ms. Osman notified at 1:30 a.m. Shoulder series EXAM: XR LEFT SHOULDER 3 VIEWS 06/02/2013 [facility] DATE: 2013-06-02 1306 hours INDICATION: Pain and swelling COMPARISON: None available. TECHNIQUE: AP views in inte rnal and external rotation and an axillary view of the left shoulder FINDINGS: No acute fractures identified. There is a chronic ossific density and a widened acromioclavicular joint, without widening of the coracoclavicular interval. The glenohumeral joint is unremarkable. IMPRESSION: Old grade 2 AC separation with no a cute abnormality identified. Chest 2 views CHEST 2 VIEWS dated 2013-05-31 12:55:00 05/31/20 13 [facility] COMPARISON: 03/09/2013 CLINICAL INDICATION: Coughing FINDINGS: Frontal and later al chest radiographs are submitted for interpretation. The heart is normal in size. The lungs are clear. Costophrenic sulci are sharp without effusion. Pulmonary boy and vascularity are normal. CONCLUSION: No acute abnormality identified. Abdomen/Pelvis CTA EXAM: CT ABDOMEN AND PELVIS WITHOUT AND WITH IV CONTRAST 03/28/2013 [facility] DATE: 03/28/2013 CLINICAL INDICATIONS: Renal donor, presurgical e valuation. TECHNIQUE: Volumetric acquis ition of abdomen from the level of the domes of the diaphragm through the symphysis pubis using 2 mm slice thickness before and after the administration of intravenous contra st in precontrast, arterial and nephrographic phases. Axial, sagittal and coronal images were interpreted. Delayed images through the abdomen were acquired as per our CT abdomen protocol. Radiation redu ction technique has been use d. 3D MIP images were made and are within the unspecified folder in the patient jacket. COMPARISON: None available. FINDINGS: Both lung bases are clear. No pleural effusions. No pericardial effusion. Abdomen and pelvis: Right kidney: Right kidney m easures 10.1 cm in size. No obvious focal renal mass or hypodense lesions seen. There is one ureter. Left kidney: Left kidney woodrow sures 10.1 cm in size. 4 mm left inferior pole renal cortical hypodensity is too small to characterize. There is one ureter. Renal arteries: Right side: 1. Main renal ar elin bifurcates 4.5 (6.1 on the axial MIPs) cm from the origin. Left side: 1. Main renal art liss bifurcates 2.0 cm from the origin (1.1 cm on the axial MIPs). Renal veins: Right side: 2 Left side: 1 Multiple subcentimeter hypod ensities within the liver are too small to characterize. The rest of the visualized abdomen including the gallbladder, spleen, pancreas, stomach, duodenum, and small and larg e bowel loops demonstrate no significant abnorma lities. IMPRESSION: 1. Preoperative renal donor planning with vascular measurements and descriptions as above. 2. 4 mm left inferior pole r enal cortical hypodensity is too small to characterize. 3. Multiple subcentimeter hy podensities in the liver are too small to characterize. Digital Mammo - DIGITAL MAMMO SCREENING [place] 03/22/2013 [facility] [place] Screening [facility] BILATERAL DIGITAL SCREENING MAMMOGRAM WITH CAD: 03/22/2013 CLINICAL: Routine. Current study was evaluated with a Lob[employer] Fisher[employer] d Detection (CAD) system. No prior exams were available for comparison. There are scattered fibrogla ndular elements in both breasts that could obscure a lesion on mammography. No significant masses, calci fications, or other findings are seen in either breast. IMPRESSION: NEGATIVE There is no mammographic geovany dence of malignancy. A screening mammogram in one year is recommended. Eelna alfaro/penrad:03/29/2013 16:49:51 [employer] [employer] Supervisor: Sweetie ivory [facility] letter sent: Normal exam Mammogram BI-RADS: 1 Negative Kidney scan glomerular EXAM: GFR STUDY WITH IODINE-125 IOTHALAMA TE 03/22/2013 [facility] DATE: March 22, 2013 01:18:07 PM INDICATION: Renal living donor. COMPARISON: None available. TECHNIQUE: After IV injectio n of 26 uCi iodine-125 iothalamate, sequential blood samples were obtained over approximately 5 hours. The samples were counted with radioactivity and GFR was calculated based on the rate of radiotracer excretion. FINDINGS/IMPRESSION: Normal body surface corrected GFR of 84.66486 ml /min/1.73 m2. GFR reference values: GFR (Males) = 74 -142 ml/min/1.73 m2. GFR (Females) = 74 -144 ml/min/1.73 m2. Chest 2 views CHEST 2 VIEWS dated 2013-03-09 14:22:00 03/09/20 13 [facility] COMPARISON: None CLINICAL INDICATION: Kidney Donor Evaluation FINDINGS: Frontal and later al chest radiographs are submitted for interpretation. The heart is normal in size. The lungs are clear. Costophrenic sulci are sharp without effusion. Pulmonary boy and vascularity are normal. CONCLUSION: No acute abnormality identified. Consultation Notes No Data Provided for This Section Discharge Summaries No Data Provided for This Section History and Physicals No Data Provided for This Section Vital Signs Vital Sign Value Date Comments Source Systolic (mm Hg) 111 11/21/2018 [facility] Diastolic (mm Hg) 75 11/21/2018 [facility] [place] Heart Rate 64 11/21/2018 [facility] Neuro Temperature Oral (F) 98.1 F 11/21/2018 [facility] Height 160.02 cm 11/21/2018 [facility] Weight 56.364 11/21/2018 [facility] BMI Calculated 22.01 11/21/2018 [facility] Weight 60.5 05/02/2015 [facility] BMI Calculated 23.63 05/02/2015 [facility] Respitory Rate 18 05/02/2015 [facility] Heart Rate 56 05/02/2015 [facility] Systolic (mm Hg) 113 05/02/2015 [facility] Diastolic (mm Hg) 68 05/02/2015 [facility] Height 160 cm 05/02/2015 [facility] Temperature Oral (F) 97.3 F 05/02/2015 [facility] Height 160.02 cm 11/29/2014 [facility] Heart Rate 64 11/29/2014 [facility] Respitory Rate 16 11/29/2014 [facility] Systolic (mm Hg) 114 11/29/2014 [facility] Diastolic (mm Hg) 56 11/29/2014 [facility] BMI Calculated 22.88 11/29/2014 [facility] Weight 58.6 11/29/2014 [facility] Respitory Rate 18 07/05/2014 [facility] Diastolic (mm Hg) 46 07/05/2014 [facility] ed[facility] Center Systolic (mm Hg) 117 07/05/2014 [facility] BMI Calculated 21.7 07/05/2014 [facility] Weight 57.3 07/05/2014 [facility] Height 162.5 cm 07/05/2014 [facility] Heart Rate 61 07/05/2014 [facility] Systolic (mm Hg) 103 06/04/2013 [facility] Center Diastolic (mm Hg) 57 06/04/2013 [facility] ed[facility] Center Respitory Rate 20 06/04/2013 [facility] zhou Center Temperature Oral (F) 98.9 F 06/04/2013 [facility] Heart Rate 66 06/04/2013 [facility] Center Diastolic (mm Hg) 56 06/04/2013 [facility] ed[facility] Center Respitory Rate 20 06/04/2013 [facility] zhou Center Systolic (mm Hg) 96 06/04/2013 [facility] Heart Rate 68 06/04/2013 [facility] Temperature Oral (F) 98.7 F 06/04/2013 [facility] Systolic (mm Hg) 88 06/04/2013 [facility] Diastolic (mm Hg) 58 06/04/2013 [facility] Center Respitory Rate 18 06/04/2013 [facility] zhou Center Heart Rate 66 06/04/2013 [facility] Temperature Oral (F) 98.1 F 06/04/2013 [facility] Weight 55 05/31/2013 [facility] Height 162.56 cm 05/31/2013 [facility] Height 162.5 cm 05/31/2013 [facility] Weight 56.8 05/31/2013 [facility] Diastolic (mm Hg) 63 04/04/2013 [facility] Center Systolic (mm Hg) 108 04/04/2013 [facility] Heart Rate 59 04/04/2013 [facility] Weight 55 04/04/2013 [facility] Height 162.56 cm 04/04/2013 [facility] Systolic (mm Hg) 118 03/28/2013 [facility] Diastolic (mm Hg) 51 03/28/2013 [facility] Temperature Oral (F) 96.9 F 03/28/2013 [facility] Height 162.5 cm 03/28/2013 [facility] Weight 56.8 03/28/2013 [facility] Height 162.5 cm 03/09/2013 [facility] [place] Diastolic (mm Hg) 41 03/09/2013 [facility] Heart Rate 66 03/09/2013 [facility] [place] Respitory Rate 18 03/09/2013 [facility] Systolic (mm Hg) 114 03/09/2013 [facility] Temperature Oral (F) 98.9 F 03/09/2013 [facility] Weight 65.909 03/09/2013 [facility] Height 165.1 cm 03/09/2013 [facility] Encounters Location Location Encounter Encounter Reason Attending ADM AK Stat us Source Details Type Number For Provider Date Date Visit [facility] TB [id number] DONOR ESPERANZA 03/09 Active [facility] 1 VISIT ADROGUE [facility] Outpatient [id number] RENAL LUIS ENRIQUE 04/04 Active [facility] 0 PT///COL FAHAD [facility] Center SCREENIN G AUDIT [id number] 04/12 /2012 Physicia ns [facility] TB [id number] LUIS ENRIQUE 04/23 04/23 Discharg [facility] 3 FAHAD /2012 ed [facility] TB [id number] LABS ESPERANZA 05/28 Active [facility] 4 ADROGUE /2012 [facility] Inpatient [id number] KIDNEY OLYA 06/01 06/04 Active [facility] 2 DONOR HOBEIKA /2012 [facility] TP [id number] DONOR URIEL MARTINEZ 06/07 Active [facility] Medical 5 VISIT /2012 [facility] TB [id number] DONOR URIEL MARTINEZ 07/30 08/28 Active [facility] 6 VISIT /2012 [facility] OP [id number] _MAPID:E Uriel Martinez 12/07 01/06 [facility] Post-Transp [id number] NCNTRRFV /2013 [facility] 7 [id number] [facility] OP [id number] Esperanza 07/05 08/04 [facility] Jaiden Post-Transp 8 Adrogue /2013 [facility] OP [id number] Esperanza 11/29 12/29 [facility] Jaiden Post-Transp 9 Adrogue /2014 [facility] OP [id number] Uriel Martinez 05/02 06/01 [facility] Jaiden Post-Transp Medi [facility]plant [facility] Phone [id number] 10/18 10/20 [facility] [id number] LORANE 11/21 [facility] [place] [facility] Outpatient [id number] Marcio 11/21 11/22 [facility] Outpt Diag [id number] Klarissa 10/19 10/20 [facility] 1 [facility] [place] [facility] TB [id number] LABS ESPERANZA Active [facility] 2 [facility] KRYSTIN [id number] BDDC/SCR LUIS ENRIQUE [facility] [address] COLONOSC Center OPY [facility] TH [id number] LIVING URIEL JUAN [facility] [address] DONOR [facility] EVAL Center [facility] TP [id number] DONOR URIEL MARTINEZ Active [place] [address] VISIT [facility] Procedures Procedure Code Date Perfomer Comments Source Abdominal [id number] [facility] hysterectomy Neuro, OPI D [place] Arthroscopy of knee [id number] [facility] joint Neuro, OPID [place] Bilateral tubal [id number] [facility] ligation Neuro, OPID [place] Colocystoplasty [id number] [facility] Neuro, OPID [place] Removal of kidney 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 [facility] from donor Neuro, OPID [place] Assessment and Plan No Data Provided for This Section Plan of Care Plan of Care Date Source Pap ThinPrep 04/04/2013 04/12/2013 [facility] Routine Social History Social History Date Source Social History TypeResponse 11/21/2018 [facility] Smoking Status Former smoker; Type: Cigarettes; Exposur e to Tobacco Smoke None; Cigarette Smoking Last 365 Days No; Reg Smoking Cessation Counseling No entered on: 11/21/18 Social History TypeResponse 11/21/2018 [facility] [place] Smoking Status Former smoker; Type: Cigarettes; Exposur e to Tobacco Smoke None; Cigarette Smoking Last 365 Days No; Reg Smoking Cessation Counseling No entered on: 11/21/18 Social History TypeResponse 05/02/2015 [facility] Smoking Status Former smoker; Type: Cigarettes; Exposur e to Tobacco Smoke None; Cigarette Smoking Last 365 Days No; Reg Smoking Cessation Counseling No No History of Alcohol Use 04/12/2013 [facility] (Denied) No History of Drug Use (Denied) History of Never A Smoker (Resolved) Former Smoker (V15.82); (Active) Family History Value Date Source Maternal history of Hypertension 04/12/2013 [facility] (V17.49); (Active) Sororal history of Breast Cancer (V16.3); (Active) Maternal aunt's history of Type 2 Diabetes Mellitus (Active) Maternal history of Parkinson Disease (Active) No Family history of Ovarian Cancer (Denied) Paternal history of Bladder Cancer (V16.52); (Active) Advance Directives Order Name Results Value Date Source Advance Directives Advance Directives No Advance 04/12/2013 [facility] Directives available. Functional Status No Data Provided for This Section
--- OUTSIDE RECORDS SUMMARY | 2020-10-27 21:10 | XMS REPORT | Continuity of Care Document ---
:1960 Author Organization [facility] t Address [address] [place] [address] Care Team Providers Name Role Phone Uriel Sainz MD Primary Care Physician Kristofer ALEXANDER Attending Clinician Unavailable Nabila ENCINAS Attending Clinician Doctor Unassigned, Name Attending Clinician Unavailable Gonzalez ENCINAS, Cam Attending Clinician Derek ENCINAS, W. Attending Clinician Maryan Attending Clinician Leigh Linda Attending Clinician Goran Varner Attending Clinician Daysi Aguiar Attending Clinician Payers Payer Name Policy Type Policy Effective Date Expiration Date [facility] Number [id number] CHOICE [id number] 2017 Young PPO/FEDERAL 00:00:00 [place] ROBERTA [id number] 2017-Presen tPPO Problems Condition Condition Condition Status Onset Resolution Last Treating Co mments Source Name Details Category Date Date Treatment Clinician Date M25.519 - Diagnosis Active 2018-102019-10-19 Memoria PAIN IN - 12:50:00 l UNSPECIFIE M25.519 00:01: Her [facility] D SHOULDER - PAIN IN 00 UNSPECIFIE D SHOULDER Active 10/08/2019 MONROE Jones Calcific Calcific Disease Active 2018-10 [place] tendinitis tendinitis 2-02 Me thodi of of 00:00: st shoulder shoulder 00 Disorder Disorder Disease Active 2018-10 [place] of rotator of rotator 2-02 Me th[facility] cuff cuff 00:00: st 00 Shoulder Shoulder Disease Active 2018-10 [place] joint pain joint pain 2-02 Me thodi 00:00: st 00 SOB SOB Disease Active [place] (shortness (shortness 9-13 Me thodi of breath) of breath) 00:00: st 00 Bradycardi Bradycardi Disease Active [place] a 9-13 Methodi 00:00: st 00 Carotid Carotid Disease Active Young bruit bruit 9-13 Methodi 00:00: st 00 Palpitatio Palpitatio Disease Active H danny ns ns 07-06 Methodi 00:00: st 00 Abnormal Abnormal Disease Active [place] ECG ECG 913 Methodi 00:00: st 00 Vaginal Vaginal Disease Active 2015-10 [place] atrophy atrophy 0-27 Methodi 00:00: st 00 Dyspareuni Dyspareuni Disease Active [place] 8-31 Methodi 00:00: st 00 Encounter Encounter Disease Active Carlito ston for for 8 Methodi gynecologi gynecologi 00:00: st zhou zhou 00 examinatio examinatio n n (general) (general) (routine) (routine) without without abnormal abnormal findings findings Menopausal Menopausal Disease Active [place] syndrome syndrome 8-31 Method i (hot (hot 00:00: st flashes) flashes) 00 Plantar Plantar Disease Active [place] fascia fascia 5-05 Methodi syndrome syndrome 00:00: st 00 RENAL POST Diagnosis Active 2015-05-02 Memoria CLINIC 04-30 06:33:00 l RENAL 00:00: [place] POST 00 CLINIC Active 04/30/2015 [facility] RENAL POST Diagnosis Active 2014-11-29 Memoria DONOR 11-26 06:55:00 l CLINIC RENAL 00:00: [place] POST DONOR 00 CLINIC Active 11/26/2014 [facility] LRD Diagnosis Active 2014-07-05 Mem oria 7-25 07:58:00 l LRD 00:00: [place] 00 Active 05/17/2014 [facility] DONOR Diagnosis Active 2013-12-07 Mem oria VISIT 2- 06:45:00 l DONOR 00:00: [place] VISIT 00 Active 12/05/2013 [facility] LABS Diagnosis Active 2013-05-28 Mem oria 8-05 07:10:00 l LABS 00:00: [place] 00 Active 05/28/2013 [facility] LABS // Diagnosis Active 2013-04-23 Me moria 6- 09:22:00 l LABS // 00:00: [place] 00 Active 04/17/2013 [facility] BDDC/SCREE Diagnosis Active 2013-05-24 Memoria MARCIA 6-18 15:49:00 l COLONOSCOP 00:00: Kiran n Y BDDC/SCREE 00 MARCIA COLONOSCOP Y Active 04/10/2013 [facility] RENAL Diagnosis Active 2013-04-04 Mem oria PT///COLON 5-24 14:51:00 l SCREENING RENAL 00:00: Kiran n PT///COLON 00 SCREENING Active 03/16/2013 [facility] KIDNEY Diagnosis Active 2013-06-12 Mem oria DONOR 5-17 11:50:00 l KIDNEY 00:00: [place] DONOR 00 Active 03/09/2013 [facility] LIVING Diagnosis Active 2013-04-21 Mem oria DONOR EVAL 4-16 15:45:00 l LIVING 00:00: [place] DONOR EVAL 00 Active 02/06/2013 [facility] Asthma Asthma Disease Active 10-24 Methodi 00:00: st 00 Attention Attention Disease Active Carlito ston deficit deficit 3-12 Methodi disorder disorder 00:00: st (ADD) (ADD) 00 cyst Problem Resolve 2013-08-30 Elio alex removal on d 21:18:01 l the cyst [place] forehead removal on the forehead Resolved Problem 08/30/2013 [facility] Left Problem Resolve 2013-08-30 Elio alex shoulder d 21:18:01 l surgery1 Left [place] shoulder surgery1 Resolved Problem 08/30/2013 [id number] [facility] right knee Problem Resolve 2013-08-30 Memoria arthroscop d 21:18:01 l y right [place] knee arthroscop y Resolved Problem 08/30/2013 [facility] Total Problem Resolve 2013-08-30 Elio alex Abdominal d 21:18:01 l hysterecto Total Filomena nn my Abdominal hysterecto my Resolved Problem 08/30/2013 [facility] Tubal Problem Resolve 2013-08-30 Elio alex ligation2 d 21:18:01 l Tubal [place] ligation2 Resolved Problem 08/30/2013 16442 [facility] cyst Problem Resolve 2014-12-30 Elio alex removal on d 07:08:21 l the cyst [place] forehead(C removal on onfirmed) the forehead(C onfirmed) Resolved Problem 12/30/2014 [facility] Left Problem Resolve 2014-12-30 Elio alex shoulder d 07:08:21 l surgery(Co Left Kiran n nfirmed)1 shoulder surgery(Co nfirmed)1 Resolved Problem 12/30/2014 85041 [facility] right knee Problem Resolve 2014-12-30 Memoria arthroscop d 07:08:21 l y(Confirme right Filomena nn d) knee arthroscop y(Confirme d) Resolved Problem 12/30/2014 [facility] Total Problem Resolve 2014-12-30 Elio alex Abdominal d 07:08:21 l hysterecto Total Filomena nn my(Confirm Abdominal ed) hysterecto my(Confirm ed) Resolved Problem 12/30/2014 [facility] Tubal Problem Resolve 2014-12-30 Elio alex ligation(C d 07:08:21 l onfirmed)2 Tubal Filomena nn ligation(C onfirmed)2 Resolved Problem 12/30/2014 00067 [facility] Dyspareuni Problem Active 2013-04-12 M emoria a 08:15:25 l [place] Dyspareuni a Active 04/12/2013 [facility] KIDNEY Diagnosis Active 2013-06-12 Mem oria DONOR 11:50:00 l KIDNEY [place] DONOR Active [facility] Allergies, Adverse Reactions, Alerts Allergy Allergy Status Severity Reaction(s) Onset Inactive Treating Comm ents Source Name Type Date Date Clinician Hydrocod Propensi Active Other (See Mak cho one-Acet ty to Comments) 10-24 Metho di aminophe adverse 00:00: st n reaction 00 s to drug Meperidi Propensi Active Other (See Mak tammie ne ty to Comments) 10-24 Methodi adverse 00:00: st reaction 00 s to drug Morphine Propensi Active [place] ty to 10-24 Methodi adverse 00:00: st reaction 00 s to drug Lortab Lortab Active Memoria TABS TABS l [place] Demerol Demerol Active Memoria TABS TABS l [place] Lortab Lortab Active Memoria l [place] Demerol Demerol Active Memoria HCl HCl l [place] Family History Family Member Diagnosis Comments Start Date Stop Date Source Natural father Bladder Cancer [place] Natural father Heart disease [place]ism Natural mother Heart disease [place] Natural mother Hypertension [place]ism Natural mother Seizures [facility] thodist Unknown Family Family History 2013-04-12 2013-04-12 Mervat Ash Member 08:15:25 08:15:25 Social History Social Habit Start Date Stop Date Quantity Comments Source Sex Assigned At [facility] ethodist Cigarettes smoked 2019-11-01 2019-11-01 García Cheondoism current (pack per 00:00:00 00:00:00 day) - Reported Cigarette 2019-11-01 2019-11-01 García Method ist pack-years 00:00:00 00:00:00 Tobacco use and 2019-11-01 2019-11-[address] [facility] ethodist exposure 00:00:00 00:00:00 Alcohol intake 2019-11-01 2019-11-01 Current drinker [place] 00:00:00 00:00:00 of alcohol (finding) Social History 2013-04-12 2013-04-12 Tj farias 08:15:25 08:15:25 History of tobacco 2005-07-06 Current smoker Mak cho Cheondoism use 00:00:00 Smoking Status Start Date Stop Date Source Social History 2015-05-02 13:31:50 2015-05-02 13:31:50 Tj Hwang Medications Ordered Filled Start Stop Current Ordering Indication Dosage Frequency Signature Comments Components Source Medication Medication Date Date Medication? Clinician (SIG) Name Name atorvastati Yes 20mg QD Take 1 [place] (LIPITOR) 8-18 tablet (20 Me thodi 20 mg 00:00: mg total) st tablet 00 by mouth daily. multivitami Yes 1{tbl} QD Take 1 Ho tammie n with 1-09 tablet by Methodi minerals 13:23: mouth st tablet 43 daily. B Yes Take by Ricky infantis/Marcelo 1-09 mouth. Methodi ani/B angie/B 13:23: st bifid 43 (PROBIOTIC 4X ORAL) atorvastati 2018-10 2020- No 20mg QD Take 20 mg García n (LIPITOR) 202 08-18 by mouth Met hodi 20 MG 00:00: 00:[address] tablet 00 :00 famotidine 2018-10 Yes García (PEPCID) 40 1-18 Methodi MG tablet 00:00: st 00 SYMBICORT Yes Young 80-4.5 9-08 Methodi mcg/actuati 00:00: st on inhaler 00 levocetiriz Yes 5mg QD Take 5 mg [place] ine (XYZAL) 8-30 by mouth Meth sherron 5 MG tablet 00:00: daily. st 00 estradiol Yes APPLY 1 [place] (VIVELLE-DO 8-29 PATCH TO Meth sherron T) 0.05 00:00: SKIN st mg/24 hr 00 WEEKLY. BOTOX 200 Yes Young unit recon 6-25 Methodi soln 00:00: st 00 Omeprazole 2018-0 Yes PO, Daily, M emoria 1-29 0 l 15:37: Refill(s) [place] 00 Estradiol Yes 0 Memoria 1-29 Refill(s) l 15:37: [place] 00 Xyzal Yes PO, QPM, 0 Memori a 1-29 Refill(s) l 15:37: Jaiden 00 200 ACTUAT 0 Yes 2 puff, Elio alex Albuterol 1-29 INHALATION l 0.09 15:37: , QID, 0 [place] MG/ACTUAT 00 Refill(s) Metered Dose Inhaler [Proventil] Symbicort Yes 2 puff, Memor ia 160/4.5 1-29 INHALATION l inhalation 15:37: , BID, 0 Her kaiser aerosol 00 Refill(s) with adapter tizanidine Yes PO, 0 Memori a 11-21 Refill(s) l 15:37: Ja[place] Singulair Yes Daily, 0 Elio alex 29 Refill(s) l 15:37: [place] 00 Probiotic Yes 1 cap, PO, Me moria Formula 2-06 Daily, 0 l oral 13:16: Refill(s) Jaiden capsule 00 albuterol Yes Ricky (PROVENTIL 11-25 Methodi HFA) 90 00:00: st mcg/actuati 00 on inhaler EPINEPHrine Yes [place] 0.3 mg/0.3 11-25 Methodi mL syringe 00:00: st 00 montelukast Yes Giovannyto n (SINGULAIR) 11-25 Methodi 10 mg 00:00: st tablet 00 Zofran 4 mg Yes Jagruti 4 mg, 1 Memoria oral tablet 06-04 Semaj-Tayl tab, PO, l 15:59: or Q8H, PRN, [place] 54 30 tab, as needed for nausea/vom iting, Substituti on Allowed tramadol 50 Yes Jagruti 50 mg, 1 Memoria mg oral 06-04 Semaj-Tayl tab, PO, l tablet 15:58: or Q4H, PRN, Kiran n 54 50 tab, as needed for pain, Substituti on Allowed, TAB simethicone Yes Jagruti 80 mg, 1 Memoria 80 mg oral 06-04 Semaj-Tayl tab, CHEW, l tablet, 15:58: or TID, PRN, Filomena nn chewable 48 40 tab, Gas, Substituti on Allowed, Maintenanc e, CHEWTAB docusate Yes Jagruti 100 mg, 1 Memoria sodium 100 06-04 Semaj-Tayl cap, PO, l mg oral 15:58: or Q8H, 60 [place] capsule 39 cap, 0, 0, Substituti on Allowed, CAP simethicone No Marga C 80 mg, 1 Memoria 06-04 Dawson tab, l 02:54: Route: Jaiden 00 CHEW, Drug form: CHEWTAB, TID, Dosing Weight 55, kg, PRN Gas, Priority: STAT, Start date: 06/03/13 21:54:00, Duration: 30 day, Stop date: 07/03/13 21:53:00 tramadol 50 2012-0 No Marga C 50 mg, 1 Memoria mg oral 06-03 [place] tab, l tablet 17:00: Route: PO, Filomena Drug form: TAB, Q4H, Dosing Weight 55, kg, PRN as needed for pain, Start date: 06/03/13 12:00:00, Duration: 30 day, Stop date: 07/03/13 8:00:00 Ditropan 2012- No Reji D 5 mg, 1 Me moria 8 Person tab, l 00:05: Route: PO, Drug form: TAB, TID, Dosing Weight 55, kg, PRN Bladder Spasm, Start date: 06/02/13 19:05:00, Duration: 30 day, Stop date: 07/02/13 19:04:00 docusate 2012-0 No Jagruti 100 mg, 1 Memoria sodium 06-02 Semaj-Tayl cap, l 21:00: or Route: PO, Drug form: CAP, Q8H, Dosing Weight 55, kg, Start date: 06/02/13 16:00:00, Duration: 30 day, Stop date: 07/02/13 8:00:00 Dulcolax No Reji D 10 mg, 1 M emoria Laxative 8 Person supp, l 16:08: Route: LA, Drug form: SUPP, Daily, Dosing Weight 55, kg, PRN Constipati on, Start date: 06/02/13 11:08:00, Duration: 30 day, Stop date: 07/02/13 11:07:00 Montgomery 5/325 2012- No Zach 1 tab, Elio alex oral tablet 06-02 Marcio Route: PO, l 16:06: Joel Drug Form: Herm TAB, Dosing Weight 55, kg, Q4H, PRN Pain, Start date: 06/02/13 11:06:00, Duration: 30 day, Stop date: 07/02/13 11:05:00 MiraLax 2012-0 No Jagruti 17 gm, 1 Me moria 06-02 Semaj-Tayl pkt, l 14:00: or Route: PO, Drug form: PWDR, ONCE, Dosing Weight 55, kg, Start date: 06/02/13 9:00:00, Duration: 1 doses or times, Stop date: 06/02/13 9:00:00 ondansetron 2012-0 No Marga C 4 mg, 2 Memoria 06-02 Dawson mL, Route: l 00:53: IVP, Drug form: INJ, ONCE, Dosing Weight 55, kg, Priority: STAT, Start date: 06/01/13 19:53:00, Stop date: 06/01/13 19:53:00 acetaminoph 2012-0 No Jagruti 1,000 mg, Memoria en 06-01 Semaj-Tayl 100 mL, l 23:00: or Route: IVP, Drug form: INJ, Q6H, Dosing Weight 55, kg, Start date: 06/01/13 18:00:00, Duration: 3 doses or times, Stop date: 06/02/13 6:00:00 Zofran 2012-0 No Jagruti 4 mg, Memori a 06-01 Semaj-Tayl Route: IV, l 20:59: or Drug form: INJ, Q8H, Dosing Weight 55, kg, PRN Nausea, Start date: 06/01/13 15:59:00, Duration: 30 day, Stop date: 07/01/13 15:58:00 droperidol 2012-0 No Dinorah R 0.625 mg, Memoria 06-01 Rajwinder Route: l 18:40: IVP, ONCE, Dosing Weight 55, kg, PRN Nausea, Start date: 06/01/13 13:40:00, Stop date: 07/01/13 13:39:00 pantoprazol 2012-0 No Jagruti 40 mg, 1 Memoria e 06-01 Semaj-Tayl tab, l 18:30: or Route: PO, Drug form: ECTAB, Before Breakfast, Dosing Weight 55, kg, Start date: 06/01/13 13:30:00, Duration: 30 day, Stop date: 07/01/13 7:30:00 promethazin No Dinorah R 6.25 mg, Memoria e 06-01 Rajwinder 0.25 mL, l 17:55: Route: [place] 00 IVPB, Drug form: INJ, ONCE, Dosing Weight 55, kg, Start date: 06/01/13 12:55:00, Stop date: 06/01/13 12:55:00 D5W 1/2NS No Reji D 1,000 mL, Memoria 1,000 mL 06-01 Person Rate: 100 l 17:20: ml/hr, Infuse over: 10 hr, Route: IV, Dosing Weight 55 kg, Total Volume: 1,000, Start date: 06/01/13 12:20:00, Duration: 30 day, Stop date: 07/01/13 12:19:00 ondansetron No Jagruti 4 mg, 2 Memoria 06-01 Semaj-Tayl mL, Route: l 17:15: or IVP, Drug form: INJ, Q6H, Dosing Weight 55, kg, PRN Nausea & Vomiting, Start date: 06/01/13 12:15:00, Duration: 30 day, Stop date: 07/01/13 12:14:00 polyethylen No Jagruti 17 gm, 1 Memoria e glycol 06-01 Semaj-Tayl pkt, l 3350 17:15: or Route: PO, Drug form: PWDR, BID, Dosing Weight 55, kg, Start date: 06/01/13 12:15:00, Duration: 30 day, Stop date: 07/01/13 9:00:00 Saline No Jagruti 5 ml, Memori a Flush 0.9% 06-01 Semaj-Tayl Route: l 17:15: or IVP, Drug Form: INJ, Dosing Weight 55, kg, PRN, PRN Line Flush, Start date: 06/01/13 12:15:00, Duration: 30 day, Stop date: 07/01/13 12:14:00 hydromorpho No Zach 0.5 mg, Mem oria ne 06-01 Marcio 0.25 mL, l 17:15: Kassandraka Route: IVP, Drug form: INJ, Q3H, Dosing Weight 55, kg, PRN Pain Score 7-10, Start date: 06/01/13 12:15:00, Duration: 30 day, Stop date: 07/01/13 12:14:00 ondansetron No Ivy M 4 mg, Memoria 06-01ly Route: l 16:51: IVP, ONCE, Dosing Weight 55, kg, PRN Nausea & Vomiting, Start date: 06/01/13 11:51:00 dexamethaso No Ivy M 4 mg, Memoria ne 06-01 Route: l 16:51: IVP, ONCE, Dosing Weight 55, kg, PRN Nausea & Vomiting, Start date: 06/01/13 11:51:00 flumazenil No Dinorah R 0.2 mg, 2 Memoria 06-01 [place] mL, Route: l 16:51: IVP, Drug form: INJ, PRN, Dosing Weight 55, kg, PRN Benzodiaze pine Reversal, Initial dose, Start date: 06/01/13 11:51:00, Duration: 1 day, Stop date: 06/02/13 11:50:00 naloxone No Dinorah R 0.04 mg, M emoria 06-01 [place] 0.1 mL, l 16:51: Route: IVP, Drug form: INJ, Q2MIN, Dosing Weight 55, kg, PRN Narcotic Reversal, Start date: 06/01/13 11:51:00, Duration: 8 doses or times, Stop date: Limited # of times hydromorpho No Dinorah R 0.5 mg, Memoria ne 06-01 [place] 0.25 mL, l 16:51: Route: IVP, Drug form: INJ, Q5Min, Dosing Weight 55, kg, PRN Pain Score 7-10, Start date: 06/01/13 11:51:00, Duration: 5 doses or times, Stop date: Limited # of times acetaminoph No Ivy M 1,000 mg, Memoria en 10 mg/mL 06-01 Braly Route: IV, l intravenous 16:51: Drug form: [place] solution 00 INJ, ONCE, Dosing Weight 55, kg, PRN Pain Score 4-6, Start date: 06/01/13 11:51:00, Duration: 1 doses or times, Stop date: Limited # of times, Infuse over 15 minutes (for patient weight 50 kg or greater)In fuse over 15 minutes (for patient weight 50 kg or greater) Ancef No Jagruti 1 gm, Memoria 06-01 Semaj[facility] Planol Route: IV, l 11:00: or Drug form: [place] 00 PDR/INJ, ONCE, Dosing Weight 56.8, kg, Start date: 06/01/13 6:00:00, Stop date: 06/01/13 6:00:00 Sodium No Jagruti 250 mL, Elio alex Chloride 06-01[facility] Rate: On l 0.9% 05:37: or call for Jaiden (titrate) 00 use with 250 mL blood product administra tion, Dosing Weight 55, kg, Route: IV, Total Volume: 250, Duration: 30 day, Stop date: 07/01/13 0:36:00, Replace Every: 24 hr Maalox No Miesha 30 mL, Memor ia Advanced 06-01 Chelsy Sal Route: PO, l Regular 01:18: Drug Form: Herm erika Strength 00 SUSP, SUSP Dosing Weight 55, kg, QID, PRN Indigestio n, Start date: 05/31/13 20:18:00, Duration: 30 day, Stop date: 06/30/13 20:17:00 magnesium No Jagruti 300 ml, M emoria citrate 05-31-[facility] Route: PO, l 22:00: or Drug Form: [place] 00 LIQ, Dosing Weight 56.8, kg, ONCE, Start date: 05/31/13 17:00:00, Stop date: 05/31/13 17:00:00 10/25 NS No Jagruti 1,000 mL, Me moria 1,000 mL 05-31-Tay Rate: 125 l 17:01: or ml/hr, Jaiden 00 Infuse over: 8 hr, Route: IV, Dosing Weight 56.8 kg, Total Volume: 1,000, Start date: 05/31/13 12:01:00, Duration: 30 day, Stop date: 06/30/13 12:00:00 No Reported Yes (Active) M emoria Medications 6-20 l 08:15: [place] 25 methocarbam Yes PRN, as Mem oria ol 750 mg 6-05 needed for l oral tablet 16:25: pain, Filomena nn 17 Substituti on Allowed HYDROcodone Yes 1 tab, PO, Memoria -ibuprofen 6-05 Q4H, PRN, l 7.5 mg-200 16:23: for pain, He rmann mg oral 32 Substituti tablet on Allowed, Maintenanc e, TAB Vital Signs Vital Name Observation Time Observation Value Comments Source Systolic blood 2019-11-01 13:20:00 116 mm[Hg] Alvina n Cheondoism pressure Diastolic blood 2019-11-01 13:20:00 56 mm[Hg] Ramila on Cheondoism pressure Heart rate 2019-11-01 13:20:00 63 /min Young Cheondoism Body height 2019-11-01 13:20:00 160 cm Young Cheondoism Body weight 2019-11-01 13:20:00 58.117 kg [place]ism BMI 2019-11-01 13:20:00 22.70 kg/m2 Young Cheondoism Oxygen saturation in 2019-11-01 13:20:00 95 /min [facility] Arterial blood by Pulse oximetry Systolic (mm Hg) 2018-11-21 15:31:00 Elio rial [place] Diastolic (mm Hg) 2018-11-21 15:31:00 Mem orial [place] Heart Rate 2018-11-21 15:31:00 [facility] Temperature Oral (F) 2018-11-21 15:31:00 98.1 F [facility] [place] Height 2018-11-21 15:31:00 160.02 cm [facility] [place] Weight 2018-11-21 15:31:00 [facility] [place] BMI Calculated 2018-11-21 15:31:00 Memori al [place] Weight 2015-05-02 12:20:00 [facility] [place] BMI Calculated 2015-05-02 12:20:00 Memori al [place] Respitory Rate 2015-05-02 12:20:00 Memori al [place] Heart Rate 2015-05-02 12:20:00 [facility] [place] Systolic (mm Hg) 2015-05-02 12:20:00 Elio rial [place] Diastolic (mm Hg) 2015-05-02 12:20:00 Mem orial [place] Height 2015-05-02 12:20:00 160 cm [facility] [place] Temperature Oral (F) 2015-05-02 12:20:00 97.3 F [facility] [place] Height 2014-11-29 13:17:00 160.02 cm [facility] [place] Heart Rate 2014-11-29 13:17:00 [facility] [place] Respitory Rate 2014-11-29 13:17:00 Memori al [place] Systolic (mm Hg) 2014-11-29 13:17:00 Elio rial [place] Diastolic (mm Hg) 2014-11-29 13:17:00 Mem orial [place] BMI Calculated 2014-11-29 13:17:00 Memori al [place] Weight 2014-11-29 13:17:00 [facility] [place] Respitory Rate 2014-07-05 13:04:00 Memori al [place] Diastolic (mm Hg) 2014-07-05 13:04:00 Mem orial [place] Systolic (mm Hg) 2014-07-05 13:04:00 Elio rial [place] BMI Calculated 2014-07-05 13:04:00 Memori al [place] Weight 2014-07-05 13:04:00 [facility] [place] Height 2014-07-05 13:04:00 162.5 cm [facility] [place] Heart Rate 2014-07-05 13:04:00 [facility] [place] Systolic (mm Hg) 2013-06-04 17:31:00 Elio rial [place] Diastolic (mm Hg) 2013-06-04 17:31:00 Mem orial [place] Respitory Rate 2013-06-04 17:31:00 Memori al [place] Temperature Oral (F) 2013-06-04 17:31:00 98.9 F [facility] [place] Heart Rate 2013-06-04 17:31:00 [facility] [place] Diastolic (mm Hg) 2013-06-04 12:18:00 Mem orial [place] Respitory Rate 2013-06-04 12:18:00 Memori al [place] Systolic (mm Hg) 2013-06-04 12:18:00 Elio rial [place] Heart Rate 2013-06-04 12:18:00 [facility] [place] Temperature Oral (F) 2013-06-04 12:18:00 98.7 F [facility] [place] Systolic (mm Hg) 2013-06-04 09:11:00 Elio rial [place] Diastolic (mm Hg) 2013-06-04 09:11:00 Mem orial [place] Respitory Rate 2013-06-04 09:11:00 Memori al [place] Heart Rate 2013-06-04 09:11:00 [facility] [place] Temperature Oral (F) 2013-06-04 09:11:00 98.1 F [facility] [place] Weight 2013-05-31 17:46:00 [facility] [place] Height 2013-05-31 17:46:00 162.56 cm [facility] [place] Height 2013-05-31 17:01:00 162.5 cm [facility] [place] Weight 2013-05-31 17:01:00 [facility] [place] Diastolic (mm Hg) 2013-04-04 20:28:00 Mem orial [place] Systolic (mm Hg) 2013-04-04 20:28:00 Elio rial [place] Heart Rate 2013-04-04 20:28:00 [facility] [place] Weight 2013-04-04 20:28:00 [facility] [place] Height 2013-04-04 20:28:00 162.56 cm [facility] [place] Systolic (mm Hg) 2013-03-28 16:21:00 Elio rial [place] Diastolic (mm Hg) 2013-03-28 16:21:00 Mem orial [place] Temperature Oral (F) 2013-03-28 16:21:00 96.9 F [facility] [place] Height 2013-03-28 16:21:00 162.5 cm [facility] [place] Weight 2013-03-28 16:21:00 [facility] [place] Height 2013-03-09 16:03:00 162.5 cm [facility] [place] Diastolic (mm Hg) 2013-03-09 16:03:00 Mem orial [place] Heart Rate 2013-03-09 16:03:00 [facility] [place] Respitory Rate 2013-03-09 16:03:00 Memori al [place] Systolic (mm Hg) 2013-03-09 16:03:00 Elio rial [place] Temperature Oral (F) 2013-03-09 16:03:00 98.9 F [facility] [place] Weight 2013-03-09 14:44:00 [facility] [place] Height 2013-03-09 14:44:00 165.1 cm [facility] Procedures Procedure Date / Time Performing Clinician Source Performed Abdominal hysterectomy [facility] Arthroscopy of knee joint Mervat al [place] Bilateral tubal ligation Kana l [place] Colocystoplasty [facility] Removal of kidney from [facility] [place] donor Plan of Care Planned Activity Planned Date Details Comments Source Future Scheduled 2020-05-24 INFLUENZA VACCINE [place] [facility] Test 00:00:00 [code = INFLUENZA VACCINE] Future Scheduled 2013-04-12 Plan of Care [code = Mem orial [place] Test 08:15:25 [id number]] Future Scheduled 2012-01-03 BREAST CANCER [facility] thodist Test 00:00:00 SCREENING [code = BREAST CANCER SCREENING] Future Scheduled 2012-01-03 COLONOSCOPY SCREENING [place] [facility] Test 00:00:00 [code = COLONOSCOPY SCREENING] Future Scheduled 2012-01-03 SHINGLES VACCINES [place] Test 00:00:00 (#1) [code = SHINGLES VACCINES (#1)] Future Scheduled 1983 Screening for [facility] thodist Test 00:00:00 malignant neoplasm of cervix (procedure) [code = 950341982] Future Scheduled 1978 COVID-19 VACCINE (#1) [place] [facility] Test 00:00:00 [code = COVID-19 VACCINE (#1)] Encounters Start End Encounter Admission Attending Care Care Encounter Source Date/Time Date/Time Type Type Clinicians Facility Department ID 2020-05-21 2020-05-21 [facility] [id number] 08:38:00 23:59:00 Encounter Shilpa Huang [id number] [place] [id number] Erwin [id number] 2020-05-21 2020-05-21 Orders Doctor URIEL [id number] 00:00:00 00:00:00 Only Unassigned, DAREN [id number] Tehaleh [facility] [id number] 2020-02-15 2020-02-15 Refill Felisha Roth [facility] [id number] 00:00:00 00:00:00 Doyle Haung [id number] [place] [id number] Professio [id number] [address] 2020-02-13 2020-02-13 Refill Felisha Roth [facility] [id number] 00:00:00 00:00:00 Doyle Huang 350.1.13.10 [place] 4.2.7.2.686 Professio [phone] [address] 2020-01-08 2020-01-08 [facility] [id number] 00:00:00 00:00:00 Shilpa Huang 350.1.13.10 [place] 4.2.7.2.686 Professio [id number] [address] 2020-01-07 2020-01-07 [facility] [id number] 00:00:00 00:00:00 Shilpa Huang 350.1.13.10 [place] 4.2.7.2.686 Professio [phone] [address] 2019-11-09 2019-11-09 Office [facility] [id number] 14:09:01 16:01:23 Visit Shilpa Huang 350.1.13.10 [place] 4.2.7.2.686 Professio [id number] [address] 2019-10-19 2019-10-19 Outpatient [facility] [id number] 12:40:00 23:59:00 Klarissa 2018-11-21 2018-11-21 Outpatient Alexei, MHMISCHER MHMISCHER [id number] 09:30:00 23:59:59 Marcio Barrera Leigh 2018-11-21 2018-11-21 Outpatient Alexei, MHMISCHER MHMISCHER [id number] 09:30:00 23:59:59 Marcio Barrera ChiRajinder 2018-10-18 2018-10-19 Outpatient MHMISCHER MHMISCHER [id number] 11:36:00 23:59:59 Bruce 2015-05-02 2015-05-31 Outpatient Uriel Varner [facility] [id number] 06:32:00 23:59:00 Goran 10 2014-11-29 2014-12-28 Outpatient PRADEEP Aguiar IE [id number] 06:55:00 23:59:00 Raul E 09 2014-07-05 2014-08-03 Outpatient PRADEEP Aguiar IE [id number] 07:48:00 23:59:00 Raul E 08 2013-12-07 2014-01-05 Outpatient Uriel Varner IE IE [id number] 06:45:00 23:59:00 Goran 2013-07-30 2013-08-28 Outpatient MHIE IE [id number] [facility] 07:32:00 23:59:00 l [facility] 2013-04-12 2013-04-12 Outpatient MHIE IE [id number] 03:15:25 03:15:25 Results Test Description Test Time Test Comments Results Result Comments Source CHEM PANEL 2013-12-07 52 [facility] 12:50:00 CHEM PANEL 2013-12-07 1.2 [facility] 12:50:00 CHEM PANEL 2013-12-07 141 [facility] 12:50:00 CHEM PANEL 2013-12-07 4.4 [facility] nn 12:50:00 CHEM PANEL 2013-12-07 79 [facility] nn 12:50:00 CHEM PANEL 2013-12-07 23 [facility] 12:50:00 CHEM PANEL 2013-12-07 28 [facility] 12:50:00 CHEM PANEL 2013-12-07 106 [facility] nn 12:50:00 CHEM PANEL 2013-12-07 8.6 [facility] 12:50:00 CHEM PANEL 2013-12-07 11.4 [facility] 12:50:00 HEMATOLOGY 2013-12-07 1.0 [facility] 12:50:00 HEMATOLOGY 2013-12-07 3.1 [facility] 12:50:00 HEMATOLOGY 2013-12-07 5.4 [facility] nn 12:50:00 HEMATOLOGY 2013-12-07 1.2 [facility] 12:50:00 HEMATOLOGY 2013-12-07 0.4 [facility] 12:50:00 HEMATOLOGY 2013-12-07 0.3 [facility] 12:50:00 HEMATOLOGY 2013-12-07 0.1 [facility] 12:50:00 HEMATOLOGY 2013-12-07 24.6 [facility] 12:50:00 HEMATOLOGY 2013-12-07 60.7 [facility] nn 12:50:00 HEMATOLOGY 2013-12-07 8.3 [facility] 12:50:00 HEMATOLOGY 2013-12-07 202 [facility] 12:50:00 HEMATOLOGY 2013-12-07 9.3 [facility] 12:50:00 HEMATOLOGY 2013-12-07 12.9 [facility] 12:50:00 HEMATOLOGY 2013-12-07 38.0 [facility] nn 12:50:00 HEMATOLOGY 2013-12-07 5.1 [facility] nn 12:50:00 HEMATOLOGY 2013-12-07 4.18 [facility] 12:50:00 HEMATOLOGY 2013-12-07 13.2 [facility] 12:50:00 HEMATOLOGY 2013-12-07 90.9 [facility] nn 12:50:00 HEMATOLOGY 2013-12-07 12:50:00 Test Item Value Reference Range Interpretation Comme nts MCH (test code = MCH) 31.6 pg 27.0-31.0 [facility] QfbfbjcJSRIMJKXOC0171-08-90 12:50:0034.8[facility] 2013-12-07 12:50:00Negative (12/07/2013 06:50:00 [facility] UTEYE9504-01-25 12:50:00<1[facility] 2013-12-07 12:50:00Trace *ABN*(12/07/2013 06:50:00 [facility] KPFLA4351-42-09 12:50:00Negative (12/07/2013 06:50:00 [facility] QXHUC7478-66-47 12:50:001[facility] BGKJU7837-71-28 12:50:00Clear (12/07/2013 06:50:00 [facility] OAOGB0738-56-68 12:50:00Yellow *NA*(12/07/2013 06:50:00 [facility] 2013-12-07 12:50:001.020[facility] USBBY5003-58-67 12:50:00 Negative *NA*(12/07/2013 06:50:00 [facility] FTCST0970-00-28 12:50:005.5[facility] NFRI4054-54-94 12:50:000.1 [facility] DQRL9270-65-04 12:50:00<5.0[facility] CHEM 2013-12-07 12:50:0018.1[facility] HMXN7889-62-92 12:50:02082.9 [facility] NamgjcbJRYDOHNMU8637-87-46 12:55:0091.2[facility]annCHEMISTRY 2013-07-30 12:55:00<5.0[facility] IedcervEVXSVRCOL6649-94-35 12:55:00<5.5 [facility] OheoewyVDDGHZHUG1188-22-59 12:55:00<5.0[facility]annCHEMISTRY 2013-07-30 12:55:0013.1[facility] XdvjpuqSSJWFSLFV3871-53-18 12:55:0015.5[facility] EfjfpehIFSLZQEIC7022-90-86 12:55:0058[facility] QavdvnqDNRHCMAOC1289-54-72 12:55:008.2[facility] EbhkqbnOFMVBJFTI6197-73-01 12:55:0027[facility] SOAAYLRZM9506-43-46 12:55:39420Dlbxcnuq VmlzpwhGJBUYHTNF2755-22-09 12:55:004.5 [facility] GkpbzhzMQEEBJRTD9540-72-73 12:55:0068[facility]annCHEMISTRY 2013-07-30 12:55:001.1[facility] JamklgrKUMKBCAGM3587-11-04 12:55:0018[facility] LptwkcjLNAORNYUO3876-52-21 12:55:67540Gkbtyhqs GhvelxgUGYFXQAZHH7764-66-45 12:55:000.3[facility] DrwrkfaPKCKSFKZYM0381-61-41 12:55:002.7[facility] VVIZCGDVOB7120-53-45 12:55:000.4[facility] AujbntgQPVCUVJFWJ2725-46-36 12:55:000.9 [facility] RvylplhMPKPXTCSAG3399-94-16 12:55:0010.1[facility]annHEMATOLOGY 2013-07-30 12:55:000.9[facility] QvrqkocRNWFCQAZCY7581-04-23 12:55:005.9[facility] VpwedrmQUSLDBYWHY6748-02-02 12:55:0061.5[facility] AekrsgbASNDXQSYHU5694-29-92 12:55:0021.6[facility] OneheafINMDQGVHNJ3908-54-57 12:55:0014.1[facility] KWGJAHXSUF3915-66-76 12:55:009.9[facility] OfnrxilROQYQECDRQ3869-78-70 12:55:46966 [facility] MzwsypiEULBHKKOEZ3203-68-90 12:55:0012.8[facility]annHEMATOLOGY 2013-07-30 12:55:0088.8[facility] TkzeggoJWWHEAALTL7369-49-72 12:55:0037.6[facility] VsezrniDGWUGDJSNU6543-93-13 12:55:00 Test Item Value Reference Range Interpretation Comments MCH (test code = MCH) 30.1 pg 27.0-31.0 N [facility] VmmchndLZXVJRITJV2517-70-40 12:55:0033.9[facility]annHEMATOLOGY 2013-07-30 12:55:004.3[facility] PmkymogGTRZVZWOIS1012-33-60 12:55:004.24[facility] JiddhscXKUKPICYWG7167-50-02 12:55:00<1[facility] OtzshhrWKBUBKKDIR8979-12-11 12:55:00Negative (07/30/2013 07:55:00)[facility] LxqwmypKAZQLSKUUF5580-07-32 12:55:00<1[facility] ZjutxvySOBAREZRXQ1633-48-65 12:55:00Negative (07/30/2013 07:55:00)[facility] UorrfawTTVMHHZNWH0549-11-24 12:55:00Trace *ABN*(07/30/2013 07:55:00)[facility] FrqawowMIMMWGBRVV5319-71-66 12:55:00Negative *NA*(07/30/2013 07:55:00)[facility] JnwetkxENSTVYTPOI1213-55-09 12:55:001.013[facility] BEJTKGIBXI1071-00-79 12:55:00Clear (07/30/2013 07:55:00)[facility] DPTTYOVSXJ2729-76-16 12:55:005.0[facility] BcocabzDVRGQWHJCY3442-72-34 12:55:00 Light Yellow *NA*(07/30/2013 07:55:00)[facility] FwbvsytZSYCJDYOV6098-63-31 12:00:00<3.1[facility] JbuckqtLCUQASVED0015-55-85 12:00:00<5.0[facility] MonnpafEGXOZKTES3615-35-30 12:00:15376.7[facility] FdtgirbHYLRYXSTD6869-66-93 12:00:00<5.0[facility] LgcuznpIGFLAUQWW5466-75-13 12:00:0018.3[facility] FCJWIYGOA2185-23-75 12:00:0014.2[facility] HbwvyumXBKZRZJCU9060-90-68 12:00:0044 [facility] BlsrrboSNVWAGOTN3014-93-48 12:00:009.0[facility] HermannCHEMISTRY 2013-07-02 12:00:05830Bpnelhxv PsyipzfXSWGRXLUQ1238-00-49 12:00:0026[facility] PjwzsddCFKNJYCJQ2178-66-31 12:00:0021[facility] FugoitmNEAUYYVKC5187-33-26 12:00:001.4[facility] OqyajwsDNUEKWOHC0090-98-59 12:00:06201[place] PLTXWWQWQ4507-55-85 12:00:004.2[facility] LrlwctoCYASXZTYV9850-01-91 12:00:0078 [facility] UhuhlcjSJOLNDNEKG5603-48-71 12:00:001.2[facility] HermannHEMATOLOGY 2013-07-02 12:00:000.3[facility] NcgskrzBBBKVCMDUL5538-65-48 12:00:000.4[facility] QkrvgrgQVEYHUXSUB8923-78-17 12:00:0021.7[facility] RvonvvtPVJWWZBAUF6582-65-05 12:00:004.9[facility] TenwgqkINTDZDXLIJ1944-38-44 12:00:006.4[facility] TKUBFERZQO4660-03-71 12:00:000.7[facility] ZduflfmKMKKVSINHG8997-54-38 12:00:003.7 [facility] IfiebxjBRQVTMHXXR0860-31-69 12:00:0066.3[facility] HermannHEMATOLOGY 2013-07-02 12:00:009.1[facility] GtdwsepGXTVDIQSEI9492-47-58 12:00:0033.0[facility] OapgckiBPRWUSVEMQ9077-83-67 12:00:00 Test Item Value Reference Range Interpretation Comments MCH (test code = MCH) 29.4 pg 27.0-31.0 N [facility] XkkwfqoFAQXKTDOEP1584-33-87 12:00:0012.5[facility] HermannHEMATOLOGY 2013-07-02 12:00:55822Mzhoplhg KxeptcdNLOSKPYVHV9113-96-48 12:00:0012.1[facility] UscglnaZCXJHBPXHE6151-42-11 12:00:0036.8[facility] YdyfbodHOLZHOBSJD5698-90-30 12:00:004.12[facility] AjudhmhOKAWHTMQDC7550-23-35 12:00:0089.2[facility] DHPEUDMYUG3057-25-14 12:00:005.5[facility] TrueyokCOJKGCWXAE4947-14-64 12:00:00Few /LPF *NA*(07/02/2013 07:00:00)[facility] LmougasZRTSFZBQNW6995-84-59 12:00:00 Negative (07/02/2013 07:00:00)[facility] QmzbpfuHAOZBHLOOS8983-01-50 12:00:00 Negative (07/02/2013 07:00:00)[facility] DolapneGOMHEQGUUZ8635-98-99 12:00:00 Occasional /LPF *NA*(07/02/2013 07:00:00)[facility] IwscqllKMLUXMOCYM6505-49-54 12:00:00Yellow *NA*(07/02/2013 07:00:00)[facility] BvlsyhdGDXPYKEUCF4575-80-35 12:00:00Clear (07/02/2013 07:00:00)[facility] NrvrgttBJIPSAGCVD3927-39-99 12:00:00 1.017[facility] MguywwwPBTGWDGAXN5500-10-61 12:00:00Negative mg/dL *NA*(07/02/2013 07:00:00)[facility] DbcyqaqHGGZZGBEZB3482-08-70 12:00:00<1[facility] [place] SPZOHVHNQM4450-69-69 12:00:00<1[facility] QcakduwVAGDOFUIBK6358-19-56 12:00:00 5.0[facility] XbdihozKYYWHNOVLX7426-63-16 12:00:00Negative mg/dL (07/02/2013 07:00:00)[facility] UvanxljRHPQKUQJMV2596-08-87 12:00:00Negative mg/dL *NA*(07/02/2013 07:00:00)[facility] PuglgbwNSBXXGWCUQ0537-84-81 12:00:00Negative *NA*(07/02/2013 07:00:00)[facility] YahkidaDXKELNFXRG1297-19-87 12:00:00Trace *ABN*(07/02/2013 07:00:00)[facility] OmgvwcqTFUUGGZLH4396-48-30 13:50:000.2 [facility] QcolowlZQSEEYZIO4167-56-18 13:50:009.3[facility] HermannCHEMISTRY 2013-06-07 13:50:0033[facility] QiqcsgyORKRFFNYZ9226-55-25 13:50:004.4[facility] AfxjtpfKPKZQHJBS2061-30-28 13:50:91381Tkhedlbl FnsaazeDYGOKNQKH5408-54-00 13:50:001.2[facility] FlxqenmEMJFFBVQT3978-33-20 13:50:0021[facility] QCJVUCTAA6570-98-96 13:50:28328Qubtphel FhipoxzUGHQAHUYH7230-22-39 13:50:0091 [facility] AnbxcqsNZXJNNVYX1488-35-94 13:50:0052[facility] HermannCHEMISTRY 2013-06-07 13:50:0010.4[facility] YykpcotAIXSRRKLH8965-47-91 13:50:42288.8[facility] GwtosjwMJAKUERHM6880-32-90 13:50:0063.1[facility] CxsrkywYNRCSHNGV4951-97-97 13:50:007.3[facility] QtgkfelAGPGJJJNIV8133-51-98 13:50:009.0[facility] OVZPXDFNZW2801-08-24 13:50:28455Omyhigut WeziunhYYPIQKCRDW3645-91-53 13:50:00 12.3[facility] QhyerznGYJUWNFYCO0406-33-99 13:50:00 Test Item Value Reference Range Interpretation Comments MCH (test code = MCH) 30.9 pg 27.0-31.0 N [facility] FwlxdegNREASTSPAY9217-38-09 13:50:0033.6[facility] HermannHEMATOLOGY 2013-06-07 13:50:006.4[facility] OffdcvuQCTQCYACCR2952-37-61 13:50:0010.9[facility] IbgvkcpZJIZSPTRWH4675-74-16 13:50:003.53[facility] ZpyibauDUAEILKTZG1175-67-08 13:50:0032.5[facility] FtvofdnJLYTFTNMSY9082-57-26 13:50:0092.0[facility] ZTQKEAIFHW4521-13-92 13:50:000.7[facility] PqwurinJMCYTKTUBQ4364-06-62 13:50:003.9 [facility] JpczexyZSVDENYULZ9158-22-60 13:50:006.8[facility] HermannHEMATOLOGY 2013-06-07 13:50:0012.6[facility] WnwphahPJAMNSOMBL5669-80-41 13:50:000.4[facility] LoehkahZCEWNQJXFJ8564-48-25 13:50:000.8[facility] NacgkahQNMRHLMUNZ2186-11-00 13:50:004.8[facility] WsrryqbZSRYPPJHBM9810-49-55 13:50:0076.0[facility] TIFRSAFFWL0816-57-15 13:50:000.2[facility] UtvasgsWBAXSBRUXY0837-48-82 13:50:00 Many /HPF *ABN*(06/07/2013 08:50:00)[facility] FatdhvzSBNAOZOGKN1276-96-49 13:50:00Few /LPF *NA*(06/07/2013 08:50:00)[facility] MmwgrklYAGFQBITGD6585-57-13 13:50:00Occasional /HPF *NA*(06/07/2013 08:50:00)[facility]annURINALYSIS 2013-06-07 13:50:002[facility] YjtwkhjZUPGUJKBHF1887-31-39 13:50:00Occasional /LPF *NA*(06/07/2013 08:50:00)[facility] AkjgrvcNPSSAVENEA7427-56-97 13:50:005[facility] BbanptkHCVIXQGGDV7441-98-36 13:50:00Negative (06/07/2013 08:50:00)[facility] VcymrpeQJUUYUKOMW5230-23-91 13:50:00Negative (06/07/2013 08:50:00)[facility] WnddieuSNZUTMJUWG8065-58-99 13:50:00Negative (06/07/2013 08:50:00)[facility] WwlfcmpWKOXVNBNED6209-37-76 13:50:00Negative *NA*(06/07/2013 08:50:00)[facility] MxebvwtLZNIDTUNCO9170-76-54 13:50:0050 mg/dL *ABN*(06/07/2013 08:50:00)[facility] FvunciwQTQXGUWNBV4248-89-59 13:50:002[facility] FuxzbzaINLMXGNDBZ6111-54-47 13:50:00Negative mg/dL *NA*(06/07/2013 08:50:00)[facility]annURINALYSIS 2013-06-07 13:50:0020 mg/dL *ABN*(06/07/2013 08:50:00)[facility] HermannURINALYSIS 2013-06-07 13:50:006.0[facility] LayakxkJAJRDZMAZC8991-11-02 13:50:001.026[facility] MrrlmelSYCOYJSNSI2158-55-58 13:50:00Clear (06/07/2013 08:50:00)[facility] [place] UORPUIHFEQ7363-35-43 13:50:00Yellow *NA*(06/07/2013 08:50:00)[facility] VXARODCWY9648-33-49 06:59:0044[facility] MbclhotSTZETTSDZ0878-39-16 06:59:04835 [facility] ErqxrgfBSGMVZUGO2086-18-38 06:59:0011[facility]annCHEMISTRY 2013-06-03 06:59:007.8[facility] FrnjxqjJTILLSFQV9660-47-99 06:59:001.4[facility] GsxxpcfXZFRWHXDI1336-42-29 06:59:004.3[facility] DtkanumIAUGYCOIQ6625-11-97 06:59:09475Pjxvbfol XtqekwqFRHEUEIMP5713-37-45 06:59:0026[facility] QGCOACIYA6682-40-27 06:59:20926Vrwtmybp RmercqgUPIZFNSDT8999-43-09 06:59:0015.3 [facility] DwcuiflRTCQUHEFAM4125-40-40 06:59:009.6[facility] HermannHEMATOLOGY 2013-06-03 06:59:89580Qqsgleff QdmperyLJTEUUFUKB1342-96-26 06:59:00 Test Item Value Reference Range Interpretation Comments MCH (test code = MCH) 31.5 pg 27.0-31.0 H [facility] OewdwigQSWDKZUZLU5302-03-52 06:59:0032.9[facility]annHEMATOLOGY 2013-06-03 06:59:0029.2[facility] SpqnseuBCCLGCHEWW9699-94-25 06:59:0013.0[facility] AysukdcFJEUYKKMVN5573-84-03 06:59:0096.0[facility] LihypjvCUTRQEHDRN3324-81-09 06:59:009.8[facility] DzsducwSGXCWAIBDJ1482-20-00 06:59:003.04[facility] FTYSTOPMCV3086-39-96 06:59:009.6[facility] YfwqtuuUJQKNOUENT7760-13-00 06:59:000.2 [facility] QteehgpNFZJHINEJE3447-22-90 06:59:005.6[facility]annHEMATOLOGY 2013-06-03 06:59:0086.6[facility] KfvbphcNSYHVIPRSJ1915-65-82 06:59:000.3[facility] NhnulbdHAJDMNNTIA2722-65-27 06:59:007.3[facility] WozqepzUXNVQZUFLO7470-03-20 06:59:000.5[facility] WgxtwlkUDLBAEVOFT9031-47-86 06:59:008.5[facility] CAVHTQKSSE8477-02-57 06:59:000.7[facility] PfgfqogTNDUHPNDX7599-75-74 09:10:09517 [facility] DxdmuztEGOAWIAYU6034-59-87 09:10:0044[facility]annCHEMISTRY 2013-06-02 09:10:0014.9[facility] JsvbzfqADIWBMNFN3259-31-05 09:10:008.0[facility] TispvibPRDEBRWZV8460-37-69 09:10:15537Lfyeyibw GxtpdmjHVEYFZRGN6498-41-73 09:10:61099Hjyemikf YarnsnvBZEXGRCIY5818-82-74 09:10:003.9[facility] KXEGBUGUP7559-47-41 09:10:0011[facility] MpetdmgAKTZYZCYJ5816-85-12 09:10:001.4 [facility] VqjyfgdMAJHCVUMB7253-01-01 09:10:0027[facility]annHEMATOLOGY 2013-06-02 09:10:009.4[facility] GeleydlSDKAAWOLUQ1194-55-79 09:10:07153Ylirjpfl DsexogcPZZIGWXDXI3977-21-74 09:10:0012.9[facility] LyjljkiTSMOKTJXNB5953-84-93 09:10:0033.4[facility] GomnezsJRVDMWQFMU1322-13-10 09:10:00 Test Item Value Reference Range Interpretation Comments MCH (test code = MCH) 31.4 pg 27.0-31.0 H [facility] KzczxtqTBXHGGHXBY4152-09-09 09:10:0093.9[facility]annHEMATOLOGY 2013-06-02 09:10:003.20[facility] XksedbzPTODNSMZKN2047-72-77 09:10:0030.0[facility] ElcoobaJKEBUFTDMY2374-11-56 09:10:0010.0[facility] OscnkvpXFDLRAGBSC4357-69-06 09:10:0013.4[facility] XhzfuzcRQQWWACVSE4585-60-04 09:10:0011.9[facility] KGSPDRLALY4677-10-20 09:10:000.8[facility] YatqfljKLHBBAZSHP9178-97-68 09:10:000.2 [facility] WndwmjnCPKMFSUERW8679-86-31 09:10:005.8[facility]annHEMATOLOGY 2013-06-02 09:10:000.8[facility] WbckxurOFQKYITAEL9435-55-96 09:10:005.6[facility] ObncebwUHKAFPEAXQ0342-01-67 09:10:0088.4[facility] RzztmkrSQEWBUAQN9179-56-32 10:44:3915.3[facility] ShdggqcCJMMQAURT6686-53-54 10:44:3924[facility] VAAYTMGTJ9970-25-22 10:44:399[facility] SzqlveaYUUSLZVSI9218-90-94 10:44:3977 [facility] QurlqoiLPBXSFKIK6918-37-83 10:44:390.6[facility] HermannCHEMISTRY 2013-06-01 10:44:398.3[facility] MaiexyyGAOEKKIZL3611-45-24 10:44:04831Luwfqwvv MbtfjyfGNPENEKVJ8235-35-91 10:44:54453Svkcouzv DzxgvwaLDPEFHGMH0491-09-74 10:44:69579Nmnjnzvy HgzcqbpMYGHUUZSR4079-37-38 10:44:392.3[facility] IGHTMPLDC4595-86-31 10:44:393.6[facility] TalvyudBWHMKVBCZW8292-08-51 10:44:398.9 [facility] WzdecosHZFTSNLLSP3829-28-92 10:44:3930.1[facility]annHEMATOLOGY 2013-06-01 10:44:3955.8[facility] IukpqvzOTDGRMHGCD4582-53-70 10:44:391.1[facility] SrlfengNZWJELORGM9094-84-79 10:44:392.0[facility] GkphaatVTSWELJKBM1303-95-12 10:44:394.1[facility] XffllxzBLNCSCIVMT6251-59-69 10:44:390.1[facility] [place] WQNBARBDFZ3132-94-95 10:44:391.1[facility] BuzphxoIUSCDJBNRE9902-87-24 10:44:390.3 [facility] ZfblusqTVKUIQGYIC6272-70-90 10:44:39 Test Item Value Reference Range Interpretation Comments MCH (test code = MCH) 31.7 pg 27.0-31.0 H [facility] NompoevSGZMPXINLP7823-21-52 10:44:3993.3[facility] HermannHEMATOLOGY 2013-06-01 10:44:3931.2[facility] WwzvgrmUYJTFFIARB3437-97-16 10:44:3910.6[facility] NzpgwksMBLFAFRWCU0131-75-96 10:44:3934.0[facility] OtubzpkRPZNBCIVOU7935-17-15 10:44:393.6[facility] GbdlrpaWFZDQKINXK8207-25-13 10:44:393.34[facility] SCTMXJKIAG3144-44-24 10:44:3912.9[facility] DinhhedARFJAVBCKC2428-72-26 10:44:39 198[facility] DwjtsvoGESTOMFGAS9120-37-66 10:44:399.4[facility]annHEMATOLOGY 2013-06-01 10:44:39 Test Item Value Reference Range Interpretation Comments PTT (test code = PTT) 30.7 s 22.9-35.8 N [facility] VebhtecYPWJVNJSYJ4816-31-78 10:44:39 Test Item Value Reference Range Interpretation Comments PT (test code = PT) 14.2 s 12.0-14.7 N [facility] RtdfriqHKDZBNPRCV2022-83-63 10:44:391.08[facility]annCHEMISTRY 2013-06-01 10:44:324.3[facility] IOIUMNQ8757-91-24 05:37:00 Product available (06/01/2013 00:37:00)[facility] IcnfdqjMYYDGIMOAB6112-30-06 00:41:36Negative (05/31/2013 19:41:36)[facility] TqnbeqbBHBDLLUMQO2938-41-58 00:41:36Negative (05/31/2013 19:41:36)[facility] SavzowmVJBSGYDMXD6048-70-57 00:41:36Negative (05/31/2013 19:41:36)[facility] MjdclxeKRYOMHJBFQ2677-20-42 00:41:36Light Yellow *NA*(05/31/2013 19:41:36)[facility]annURINALYSIS 2013-06-01 00:41:36Clear (05/31/2013 19:41:36)[facility]annURINALYSIS 2013-06-01 00:41:361.002[facility] KeskvnaZAAOFXWBSY3448-49-33 00:41:36Negative mg/dL (05/31/2013 19:41:36)[facility] HepvfrtJZPWSJUEYJ3352-43-39 00:41:366.5 [facility] SitfvilZNZWLPQSAP9424-66-60 00:41:36Negative mg/dL *NA*(05/31/2013 19:41:36)[facility] FyvslpyZDQARBJUSO4703-21-44 00:41:36Negative mg/dL *NA*(05/31/2013 19:41:36)[facility] VswxkbwGQPTRMNRTZ7280-38-63 00:41:36Negative *NA*(05/31/2013 19:41:36)[facility] YfisblcPORSBOCUT4093-96-28 18:30:193.7[facility] WuikvcmOQZAWPWYA9241-99-00 18:30:1914[facility] NdusabiLCIDMXMVF9088-15-57 18:30:190.8[facility] FdhtxxrSVUNCAMHM8919-07-38 18:30:08276Bbpynhdw [place] XTUSKQUBN2696-93-24 18:30:196.7[facility] StkylgwGSVXJLXOH4286-50-91 18:30:190.2 [facility] NcfewwhQWCOWJGLJ5153-54-56 18:30:1920[facility] HermannCHEMISTRY 2013-05-31 18:30:191.2[facility] BrdtpsyPYQEYYNAO1755-49-72 18:30:190.6[facility] GpzisdoJCGMIFPDO3959-22-54 18:30:193.0[facility] FyodlloDGCRGVGBKI2481-58-96 18:30:192.4[facility] SelxyyiSLAGCALGTW3703-08-29 18:30:190.1[facility] [place] KDWJNQJRXC7181-52-35 18:30:191.01[facility] TgpxiwdERPWYZIUNM5282-89-85 18:30:19 Test Item Value Reference Range Interpretation Comments PTT (test code = PTT) 30.3 s 22.9-35.[address] [facility]QwwlhptJMKLNGIFHI5647-13-25 18:30:19 Test Item Value Reference Range Interpretation Comments PT (test code = PT) 13.5 s 12.0-14.7 N [facility] DWNLDBenson HospitalPharmaIN [facility] GAUZGQT6284-65-93 18:00:00Negative (05/31/2013 13:00:00)[facility] [place] RBYQYLH9197-22-31 17:13:00Product available (05/31/2013 12:13:00)[facility] BftxehcTUWGBTCHX1762-34-30 12:20:0074[facility] BiaaqogFDKTZOPYC1356-57-22 12:20:0067[facility] VlxsnohVMDZWFEEL4428-12-39 12:20:18696Ktfmozak SlgsznqUZDERXUPZ5956-30-07 12:20:0014[facility] [place] PBMPQTXRH6677-76-76 12:20:000.9[facility] YburzwsYBAPPGLOX7393-20-47 12:20:0030 [facility] HrnawudJTHPIBDKH4254-27-46 12:20:004.0[facility] HermannCHEMISTRY 2013-05-28 12:20:38505Rtctefnt OndwsgdYPONUKMBM2458-21-44 12:20:008.9[facility] DxjkdxlFESAJUHMN6721-98-42 12:20:0013.0[facility] WowmhzgBCWZWTSFJ2894-44-25 12:20:003.4[facility] NcjwldhCMLAMPUNU9952-26-55 12:20:00Negative (05/28/2013 07:20:00)[facility] WnzcpwrZOZQHQBUXG7837-82-94 12:20:0093.7[facility] [place] GPSPYSWSBZ5076-14-70 12:20:0011.5[facility] RsdeaccEFQBKGSOKQ1109-71-42 12:20:00 Test Item Value Reference Range Interpretation Comments MCH (test code = MCH) 31.9 pg 27.0-31.0 H [facility] WibxlmvPSPENSRDVW5485-01-76 12:20:0033.7[facility] HermannHEMATOLOGY 2013-05-28 12:20:0034.1[facility] RiclkrqFYSWVKOTXO4135-76-04 12:20:009.3[facility] PemdjyvDWMGLTUFRV9666-93-29 12:20:0013.0[facility] HttcnuaSKMCZOTKFN1205-53-73 12:20:52573Deuwlqic ScqpmqvSFCBTAHHPV1126-20-92 12:20:003.60[facility] [place] FUDEQRIXIN4440-96-55 12:20:004.7[facility] ZmebljaSNMHPXCADI9099-95-09 12:20:000.2 [facility] PgxxqrqYKFWBKMYVZ7925-54-98 12:20:001.0[facility]annHEMATOLOGY 2013-05-28 12:20:000.3[facility] OmsoezeSVVTMSIMBS8352-45-41 12:20:003.5[facility] IyberwqGZJLCZASLY8254-26-97 12:20:003.0[facility] UidteslRJZGYBCKNK5046-67-88 12:20:001.2[facility] QahaimyGCTOLSQHTO3561-65-26 12:20:006.5[facility] [place] HLXNVUKCFE7070-16-73 12:20:0064.2[facility] MmfmvyqPZNPMDDOXI7425-96-65 12:20:00 24.8[facility] WxvtxqrVGDHAFFXVO0110-34-13 12:20:000.97[facility]annHEMATOLOGY 2013-05-28 12:20:00 Test Item Value Reference Range Interpretation Comments PTT (test code = PTT) 29.5 s 22.9-35.8 N [facility] PkbhxrnGQAACJKFBY8653-40-91 12:20:00 Test Item Value Reference Range Interpretation Comments PT (test code = PT) 13.1 s 12.0-14.7 N [facility] SigbzygWQWXQDAXOS8305-43-55 12:20:00Negative *NA*(05/28/2013 07:20:00) [facility] RqpzrscGIAQWCMYNH0777-61-87 12:20:002.7[facility] HermannIMMUNOLOGY 2013-05-28 12:20:00Negative *NA*(05/28/2013 07:20:00)[facility] HermannIMMUNOLOGY 2013-05-28 12:20:00Negative *NA*(05/28/2013 07:20:00)[facility] HermannIMMUNOLOGY 2013-05-28 12:20:00Negative *NA*(05/28/2013 07:20:00)[facility] HermannIMMUNOLOGY 2013-05-28 12:20:00<200[facility] HermannINFECTIOUS GJKFXMVR5529-33-21 12:20:00 <2.4[facility] HermannINFECTIOUS PVJGYLQV4118-34-99 12:20:00Blood *NA*(05/28/2013 07:20:00)[facility] HermannINFECTIOUS RBQHWEIZ0359-19-63 12:20:00 Negative (05/28/2013 07:20:00)[facility] XidbhpkLYSVLFBKBB9181-01-33 12:20:00 Negative (05/28/2013 07:20:00)[facility] FovqhdtYELMNVXCRV8220-94-32 12:20:002 [facility] WdaiibvNTFCWORIKT6514-65-33 12:20:001[facility]annURINALYSIS 2013-05-28 12:20:00Negative (05/28/2013 07:20:00)[facility]annURINALYSIS 2013-05-28 12:20:00Few /LPF *NA*(05/28/2013 07:20:00)[facility]annURINALYSIS 2013-05-28 12:20:00Clear (05/28/2013 07:20:00)[facility]annURINALYSIS 2013-05-28 12:20:005.5[facility] VrqajzvMPFGYIJFYR8080-72-60 12:20:00Yellow *NA*(05/28/2013 07:20:00)[facility] ZahkrgeIOJRQKIVBY1681-14-55 12:20:001.025 [facility] DwboezfXCKMBUBTHN4289-52-86 12:20:00Small *ABN*(05/28/2013 07:20:00) [facility] KxidftgPMMEUKJTZH7559-52-09 12:20:00Negative mg/dL *NA*(05/28/2013 07:20:00)[facility] AbsssxrOCODTONTYR8283-10-63 12:20:0010 mg/dL *ABN*(05/28/2013 07:20:00)[facility] PvlxqlmDKWKWTHZBR2051-07-83 12:20:00Negative *NA*(05/28/2013 07:20:00)[facility] KmozbimBXLMKIKRKE1007-98-35 12:20:00Negative mg/dL *NA*(05/28/2013 07:20:00)[facility] QuldvdtGFIAYSAZPU9292-18-72 12:20:001[facility] UzdpqieMZKMPMRMBV4343-57-18 12:20:00Few /LPF *NA*(05/28/2013 07:20:00)[facility] XqmzxonUKMTVBYHO8620-88-87 15:04:0086[facility] FurumqaLPGNPZGAH6796-53-07 15:04:000.8[facility] ZwqzckfRPYIKYDEI5701-68-67 14:15:00<16.2[facility] [place] HXNAYLVDX9915-29-20 14:15:00<5.0[facility] WyjncdgWHGFNTBXF4992-98-44 14:15:00 30.8[facility] KfxvjdpINOFPZTFC4744-38-73 14:15:009.0[facility] HermannCHEMISTRY 2013-03-09 12:05:00Negative (03/09/2013 07:05:00)[facility]annCHEMISTRY 2013-03-09 12:05:00Negative (03/09/2013 07:05:00)[facility]annCHEMISTRY 2013-03-09 12:05:00Negative (03/09/2013 07:05:00)[facility]annCHEMISTRY 2013-03-09 12:05:00Negative (03/09/2013 07:05:00)[facility]annCHEMISTRY 2013-03-09 12:05:00See Note 6(03/09/2013 07:05:00)[facility] [facility]Y 2013-03-09 12:05:00Negative (03/09/2013 07:05:00)[facility] 12:05:00Negative (03/09/2013 07:05:00)[facility] 2013-03-09 12:05:00Negative (03/09/2013 07:05:00)[facility] 2013-03-09 12:05:00Negative (03/09/2013 07:05:00)[facility] 2013-03-09 12:05:00Negative (03/09/2013 07:05:00)[facility] 2013-03-09 12:05:58393Mpniysth VmuqalsYLOLHCLEM4653-87-68 12:05:003.3[facility] VepfchhAOEEEFYZV3876-44-50 12:05:002.3[facility] VkmlemgBECCRMREH9022-81-67 12:05:005.7[facility] SlctwhgQQFYVXJFC7782-47-18 12:05:0092.9[facility] CQXIBEQWC1433-89-69 12:05:005.3[facility] IdpdfxrINLAAWAHO6348-89-99 12:05:0015.2 [facility] HignqgfPXFUZKHNZ3425-91-03 12:05:0086[facility] 2013-03-09 12:05:0013[facility] PjvfuizLBILMBCID6574-56-70 12:05:008.2[facility] NyvudtpQXWHIURIF3953-32-89 12:05:0028[facility] HzspazyAJPUHUCYA9534-69-79 12:05:009.8[facility] ErrmdqnJTZXIEIRI6122-56-02 12:05:64771Moxffpog [place] HDAACQKQG2433-05-64 12:05:004.0[facility] RzoiikpSFOKCDAQV1283-49-78 12:05:04764 [facility] UcttofpMSHZCNVQF9435-02-67 12:05:000.8[facility]Y 2013-03-09 12:05:0015[facility] UfoneyfOWEYEGDFI4406-49-73 12:05:0087[facility] CsnpxbgGKTJAZZEE8895-42-72 12:05:65338Imdmocmk RirakqhQWZEOCZOM6445-10-86 12:05:004.0[facility] TprhgfgASKOQRFFC3513-16-00 12:05:001.1[facility] JEVZNDPXL4117-79-90 12:05:0017[facility] GjzjxbmHQDDSWLIK3522-73-22 12:05:001.0 [facility] WymvtmvJLDQQRPQF3243-17-52 12:05:004.2[facility]ann[facility]Y 2013-03-09 12:05:0014.0[facility] RqwytspCPZLLGJBD9281-94-38 12:05:0019[facility] XpvmdxdAUERXXNAY8807-21-18 12:05:0074[facility] XishfcvWGWNEANDQ9457-53-83 12:05:05275Benbjypv GoxxwuuBCJJWXCVA4715-42-71 12:05:0056[facility] [place] OFMTKETWB5219-70-47 12:05:0073[facility] NsbpmegIBMJMEUAQ3310-32-83 12:05:002.14 [facility] UvmejcjBNDLEBSGA0106-32-19 12:05:004.9[facility]annHEMATOLOGY 2013-03-09 12:05:0058.9[facility] KhhgtixSQDGQWTHJG1694-52-57 12:05:002.5[facility] OwezjzlFTZBELALNK7950-03-62 12:05:000.8[facility] CdabjxwGKDMJTWVGI6092-45-82 12:05:001.3[facility] AmihgfkHORPPUNEDS0766-28-66 12:05:000.1[facility] [place] IOPTITBUAS1658-99-13 12:05:000.3[facility] PpqqdylSKTQGVAFQY9003-40-72 12:05:008.0 [facility] PtnixrzGIYGKQDHZW2688-00-70 12:05:002.0[facility]annHEMATOLOGY 2013-03-09 12:05:0030.3[facility] PfkmqgwXASOKRZTAN3829-11-78 12:05:001.00[facility] MgdzvpyLZNBRYXWXD2511-97-19 12:05:00 Test Item Value Reference Range Interpretation Comments PTT (test code = PTT) 34.5 s 22.9-35.8 N [facility] XegellnHUJSBAKEVB9008-89-71 12:05:00 Test Item Value Reference Range Interpretation Comments PT (test code = PT) 13.4 s 12.0-14.7 N [facility] JlmerluPREQYRRXVM0318-77-47 12:05:009.1[facility]annHEMATOLOGY 2013-03-09 12:05:47986Achwssxh CbesytxXJTJBFLQAM2717-22-31 12:05:0039.9[facility] XnvpfkmLFJLVKOGQI8313-65-29 12:05:00 Test Item Value Reference Range Interpretation Comments MCH (test code = MCH) 31.9 pg 27.0-31.0 H [facility] AkmvbeqICGIFWWOAG1468-70-31 12:05:0092.9[facility]annHEMATOLOGY 2013-03-09 12:05:0012.7[facility] FxzcczqIEJNNOJCNH6402-06-21 12:05:0034.3[facility] LpluwusRXUFTFRTWE2360-19-03 12:05:0013.7[facility] DnhqxubBHZAESUXTP4124-34-65 12:05:004.29[facility] DuyjkwdUXDKMANVFT1607-89-30 12:05:004.2[facility] [place] QRCRGVNILH5768-78-77 12:05:00Reactive *ABN*(03/09/2013 07:05:00)[facility] [place] RAAVGKMUUF7345-20-40 12:05:000.2[facility] AcovhjwALPISEAHMN0642-18-93 12:05:00 >8.0[facility] DuqviguUWIAASNYPI4725-80-57 12:05:000.2[facility] [place] VVENQWNAMY4951-81-75 12:05:000.62[facility] DnzjeniRDLPXSMKQR8138-47-76 12:05:00 >8.0[facility] IsoiqiuANAQUTDILD1259-04-68 12:05:00<0.2[facility] [place] ACRXUGPWBU6172-17-87 12:05:002.0[facility] EladlykPUPBAUUZMV3394-64-35 12:05:00Non Reactive (03/09/2013 07:05:00)[facility] LmkayzgZLNNMIGTWW9228-99-41 12:05:00 Negative *NA*(03/09/2013 07:05:00)[facility] JkzzlvfUVNIZJIXLA3161-47-30 12:05:00 <1.0[facility] BkezyqzKKACLXALEO6121-72-70 12:05:00Negative *NA*(03/09/2013 07:05:00)[facility] FdarsgqOGZHWEUMGA1381-48-21 12:05:00Negative *NA*(03/09/2013 07:05:00)[facility] XjnrnptYQRMRMSVYX2781-03-52 12:05:00Negative *NA*(03/09/2013 07:05:00)[facility] VgugxtxFBSQWUSNEI7234-53-82 12:05:000.05[facility] [place] AKEYUWKKWH4997-04-57 12:05:00<0.00[facility] QicxrktQCKHMCMLPI3289-91-62 12:05:00>10.00[facility] HermannINFECTIOUS MSSWFLYL9422-62-56 12:05:00Negative (03/09/2013 07:05:00)[facility] HermannINFECTIOUS WMBYKVSD4665-54-76 12:05:00 <2.0[facility] VtbpqijTFGLMVQESL9222-23-38 12:05:00Not Indicated *NA*(03/09/2013 07:05:00)[facility] XmvlrmoRDVYWUUZXL7951-10-43 12:05:002[facility] UwptbogFQOBIJTMTF8292-20-11 12:05:00Few /LPF *NA*(03/09/2013 07:05:00)[facility] BlaqmkvOYCXVTYSVC9762-46-49 12:05:00Negative (03/09/2013 07:05:00)[facility] ZcjnwmiDONSHVQHYL2486-92-91 12:05:00Negative mg/dL *NA*(03/09/2013 07:05:00) [facility] ZfxnwafBLYNPBJFSF0894-81-66 12:05:00Negative (03/09/2013 07:05:00) [facility] DsmilinEJBKMKLPYM2456-89-64 12:05:00Negative *NA*(03/09/2013 07:05:00) [facility] NqtsysoGVYTYWFSXO1458-65-85 12:05:00Negative mg/dL *NA*(03/09/2013 07:05:00)[facility] OfvocyhTMPENHWVQP5168-61-91 12:05:00Negative mg/dL (03/09/2013 07:05:00)[facility]GyaasxxFVMNLFRKZB2445-42-21 12:05:00Negative (03/09/2013 07:05:00)[facility] CenterUxthxduHSVFJEZIMS5183-34-25 12:05:00<1[facility] [place] LJNNPSHILY8527-35-57 12:05:001.012[facility] WjarpjcIWYJKXHOBA5937-91-66 12:05:00 7.0[facility] GsbuffnTFWHDEVPFE5343-95-66 12:05:00Clear (03/09/2013 07:05:00) [facility] CenterAdnatuwANLPIXWBSO5257-91-72 12:05:00Yellow *NA*(03/09/2013 07:05:00) [facility]
[2020-10-28] MEDS ORDERED: IBUPROFEN 400 MG TAB ONE (00:06)
--- NOTE | 2020-10-28 01:08 | ER ---
Nurse's Notes [facility] Name: Ayse Reinoso Age: 60 yrs Sex: Female : 1960 Arrival Date: 10/27/2020 Time: 21:02 Bed 15 Private MD: Ulices Sainz Diagnosis: Superficial injury of head;Facial contusion Presentation: 10/27 21:19 Chief complaint: Patient states: 1 hr [employer], tripped over a chair and fell flat on face. ca1 abrasion on L arm and L knee. Denies LOC. not on blood thinners. Coronavirus screen: Client denies travel out of the [place] in the last 14 days. At this time, the client does not indicate any symptoms associated with coronavirus-19. Ebola Screen: Patient negative for fever greater than or equal to 101.5 degrees Fahrenheit, and additional compatible Ebola Virus Disease symptoms Patient denies exposure to infectious person. Patient denies travel to an Ebola-affected area in the 21 days before illness onset. No symptoms or risks identified at this time. Initial Sepsis Screen: Does the patient meet any 2 criteria? No. Patient's initial sepsis screen is negative. Does the patient have a suspected source of infection? No. Patient's initial sepsis screen is negative. Risk Assessment: Do you want to hurt yourself or someone else? Patient reports no desire to harm self or others. Onset of symptoms was October 27, 2020. 21:19 Method Of Arrival: Wheelchair ca1 21:19 Acuity: CYNDI 2 ca1 22:55 Care prior to arrival: None. Mechanism of Injury: Fall from standing position. Trauma ea event details: Injury occurred in the [facility], Injury occurred: at home. Injury occurred: October 27, 2020. Trauma Activation: Not Applicable Physician: ED Physician; Name: ; Notified At: ; Arrived At: Physician: General Surgeon; Name: ; Notified At: ; Arrived At: Physician: Radiology; Name: ; Notified At: ; Arrived At: Physician: Respiratory; Name: ; Notified At: ; Arrived At: Physician: Lab; Name: ; Notified At: ; Arrived At: Historical: - Allergies: 21:24 Demerol; ca1 21:24 Lortab; ca1 21:24 Morphine; ca1 - Home Meds: 21:24 tramadol 50 mg Oral tab 1 tab every 4-6 hours [Active]; levocetirizine 5 mg oral tab 1 ca1 tab once daily [Active]; montelukast 10 mg oral tab 1 tab once daily [Active]; famotidine 40 mg Oral tab 1 tab once daily [Active]; tizanidine 4 mg oral cap 1 cap 3 times per day [Active]; ondansetron HCl 4 mg Oral tab 1 tab twice a day [Active]; - PMHx: 21:24 Asthma; GERD; ca1 - PSHx: 21:24 Pt has one kidney; Tubal ligation; Knee surgery; shoulder; Hysterectomy; ca1 Cholecystectomy; - Immunization history:: Flu vaccine is up to date. - Social history:: Smoking status: Patient/guardian denies using tobacco, the patient reports quitting approximately 15 years ago. - Immunization history: Last tetanus immunization: unknown. - Family history:: not pertinent. - Hospitalizations: : No recent hospitalization is reported. Screenin:53 Abuse screen: Denies threats or abuse. Nutritional screening: No deficits noted. ea Tuberculosis screening: No symptoms or risk factors identified. Fall Risk None identified. Primary Survey: 22:53 NO uncontrolled hemorrhage observed. Breathing/Chest: Respiratory pattern: regular, ea Respiratory effort: spontaneous, unlabored. Circulation: Skin color: pink, Skin temperature: warm. Disability Alert. Exposure/Environment: Obvious injury(ies) are noted at this time: laceration to upper gum and lower inner lip, bruising and swelling noted to bridge of nose. 10/28 00:07 Reassessment Airway Airway Patent Breathing/Chest Respiratory pattern Regular ea Respiratory effort Spontaneous Unlabored Disability Alert. Assessment: 10/27 22:51 General: Appears uncomfortable, Behavior is calm, cooperative. Pain: Complains of pain ea in nose and mouth. Neuro: Level of Consciousness is awake, alert, obeys commands, Oriented to person, place, time, situation. Cardiovascular: Patient's skin is warm and dry. Respiratory: Airway is patent Respiratory effort is even, unlabored, Respiratory pattern is regular, symmetrical. Derm: Bruising that is green, on nose small laceration to upper gum and lower inner lip. 10/28 01:17 Reassessment: Patient and/or family updated on plan of care and expected duration. Pain ea level reassessed. Patient is alert, oriented x 3, equal unlabored respirations, skin warm/dry/pink. Discharge instruction given to patient, verbalized the understanding of instruciton. Vital Signs: 10/27 21:19 BP 99 / 52; Pulse 42; Resp 16 S; Temp 98.5(TE); Pulse Ox 99% on R/A; Weight 54.43 kg ca1 (R); Height 5 ft. 3 in. (160.02 cm) (R); Pain 3/10; 10/28 01:15 BP 115 / 50; Pulse 50; Resp 18; Pulse Ox 98% ; ea 10/27 21:19 Body Mass Index 21.26 (54.43 kg, 160.02 cm) ca1 [place] Coma Score: 10/27 22:55 Eye Response: spontaneous(4). Verbal Response: oriented(5). Motor Response: obeys ea commands(6). Total: 15. 10/28 01:15 Eye Response: spontaneous(4). Verbal Response: oriented(5). Motor Response: obeys ea commands(6). Total: 15. Trauma Score (Adult): 10/27 22:55 Eye Response: spontaneous(1); Verbal Response: oriented(1); Motor Response: obeys ea commands(2); Systolic BP: > 89 mm Hg(4); Respiratory Rate: 10 to 29 per min(4); [place] Score: 15; Trauma Score: 12 ED Course: 21:02 Patient arrived in ED. es 21:02 Ulices Sainz MD is Private Physician. es 21:21 Triage completed. ca1 21:24 Arm band placed on right wrist. ca1 22:43 Lani Perez RN is Primary Nurse. zb 22:47 Sebas Diez MD is Attending Physician. rn 22:53 Patient has correct armband on for positive identification. Pulse ox on. NIBP on. ea 22:53 Patient maintains SpO2 saturation greater than 95% on room air. Thermoregulation: warm ea blanket given to patient. 10/28 00:25 Head C Spine Mpr Wo Con In Process Unspecified. EDMS 00:26 Maxillofacial Wo Con In Process Unspecified. EDMS 01:17 No provider procedures requiring assistance completed. Patient did not have IV access ea during this emergency room visit. Administered Medications: No medications were administered Intake: 01:18 PO: 0ml; Total: 0ml. ea Outcome: :08 Discharge ordered by . rn 01:17 Discharged to home ambulatory, with family. ea 01:17 Condition: stable 01:17 Discharge instructions given to patient, Instructed on discharge instructions, follow up and referral plans. Demonstrated understanding of instructions, follow-up care. 01:18 Patient's length of stay was not longer than 2 hours. ea 01:18 Patient left the ED. ea Signatures: Dispatcher [employer] Liliam Potter Roman, MD MD rn Antunez, Elena, RN RN ea Acob, Cheryl, RN RN ca1 Brown, Zipporah, RN RN zb Corrections: (The following items were deleted from the chart) 10/27 21:22 21:19 Acuity: CYNDI 4 ca1 ca1
--- NOTE | 2020-10-28 01:09 | EDPHYS ---
Physician Documentation [facility] Name: Ayse Reinoso Age: 60 yrs Sex: Female : 1960 Arrival Date: 10/27/2020 Time: 21:02 Bed 15 Private MD: Ulices Sainz ED Physician Sebas Diez HPI: 10/27 23:15 This 60 yrs old Female presents to ER via Wheelchair with complaints of Fall rn Injury, Facial Injury. 23:15 Details of fall: The patient fell from an upright position. Onset: The symptoms/episode rn began/occurred just prior to arrival. Associated injuries: The patient sustained injury to the head. Severity of symptoms: At their worst the symptoms were mild, in the emergency department the symptoms are unchanged. The patient has not experienced similar symptoms in the past. The patient has been recently seen by a physician:. Reports fell over chair that was misplaced, fell onto hardwood floor, hit face, no LOC, no blood thinners. Reports pain mainly to left cheek, took pain medication and muscle relaxer prior to arrival, and denies neck pain at this time. Denies other injury. Is in immobilizer 2/2 recent right arm surgery. . Historical: - Allergies: 21:24 Demerol; ca1 21:24 Lortab; ca1 21:24 Morphine; ca1 - Home Meds: 21:24 tramadol 50 mg Oral tab 1 tab every 4-6 hours [Active]; levocetirizine 5 mg oral tab 1 ca1 tab once daily [Active]; montelukast 10 mg oral tab 1 tab once daily [Active]; famotidine 40 mg Oral tab 1 tab once daily [Active]; tizanidine 4 mg oral cap 1 cap 3 times per day [Active]; ondansetron HCl 4 mg Oral tab 1 tab twice a day [Active]; - PMHx: 21:24 Asthma; GERD; ca1 - PSHx: 21:24 Pt has one kidney; Tubal ligation; Knee surgery; shoulder; Hysterectomy; ca1 Cholecystectomy; - Immunization history:: Flu vaccine is up to date. - Social history:: Smoking status: Patient/guardian denies using tobacco, the patient reports quitting approximately 15 years ago. - Immunization history: Last tetanus immunization: unknown. - Family history:: not pertinent. - Hospitalizations: : No recent hospitalization is reported. ROS: 23:15 Constitutional: Negative for fever, chills, and weight loss, Eyes: Negative for injury, rn pain, redness, and discharge, ENT: + left maxillary pain and injury Neck: Negative for injury, pain, and swelling, Cardiovascular: Negative for chest pain, palpitations, and edema, Respiratory: Negative for shortness of breath, cough, wheezing, and pleuritic chest pain, Abdomen/GI: Negative for abdominal pain, nausea, vomiting, diarrhea, and constipation, MS/Extremity: Negative for injury and deformity, Skin: Negative for injury, rash, and discoloration, Neuro: Negative for weakness, numbness, tingling, and seizure. Exam: 23:15 Constitutional: This is a well developed, well nourished patient who is awake, alert, rn and in no acute distress. Flat affect. Head/Face: Normocephalic, + mild tenderness left zygoma, no open wounds, + blood along gums of upper 2 front teeth without subluxation or fracture of teeth. Eyes: Pupils equal round and reactive to light, extra-ocular motions intact. Lids and lashes normal. Conjunctiva and sclera are non-icteric and not injected. Cornea within normal limits. Periorbital areas with no swelling, redness, or edema. Neck: NO cervical tenderness. Cardiovascular: Bradycardic, regular. Respiratory: No increased work of breathing, no retractions or nasal flaring. Abdomen/GI: soft, non-tender MS/ Extremity: Right arm in immobilizer, no tenderness. Neuro: Awake and alert, GCS 15, oriented to person, place, time, and situation. Cranial nerves II-XII grossly intact. Motor strength 5/5 in all extremities. Sensory grossly intact. Vital Signs: 21:19 BP 99 / 52; Pulse 42; Resp 16 S; Temp 98.5(TE); Pulse Ox 99% on R/A; Weight 54.43 kg ca1 (R); Height 5 ft. 3 in. (160.02 cm) (R); Pain 12/31; 10/28 01:15 BP 115 / 50; Pulse 50; Resp 18; Pulse Ox 98% ; ea 10/27 21:19 Body Mass Index 21.26 (54.43 kg, 160.02 cm) ca1 [place] Coma Score: 10/27 22:55 Eye Response: spontaneous(4). Verbal Response: oriented(5). Motor Response: obeys ea commands(6). Total: 15. 10/28 01:15 Eye Response: spontaneous(4). Verbal Response: oriented(5). Motor Response: obeys ea commands(6). Total: 15. Trauma Score (Adult): 10/27 22:55 Eye Response: spontaneous(1); Verbal Response: oriented(1); Motor Response: obeys ea commands(2); Systolic BP: > 89 mm Hg(4); Respiratory Rate: 10 to 29 per min(4); Alexis Score: 15; Trauma Score: 12 MDM: 22:47 Patient medically screened. rn 10/28 01:07 Differential diagnosis: closed head injury, contusion, fracture. Data reviewed: vital rn signs, nurses notes, radiologic studies, CT scan, and as a result, I will discharge patient. Counseling: I had a detailed discussion with the patient and/or guardian regarding: the historical points, exam findings, and any diagnostic results supporting the discharge/admit diagnosis, radiology results, the need for outpatient follow up, to return to the emergency department if symptoms worsen or persist or if there are any questions or concerns that arise at home. Special discussion: Based on the patient's history, exam and DX evaluation, there is no indication for emergent intervention or inpatient TX. It is understood by the patient/guardian that if the SXs persist or worsen they need to return immediately for re-evaluation. I discussed with the patient/guardian in detail that at this point there is no indication for admission to the hospital. It is understood, however, that if the symptoms persist or worsen the patient needs to return immediately for re-evaluation. ED course: No acute fractures or acute traumatic findings on ct head/cspine/face.. 10/27 23:28 Order name: Head C Spine Mpr Con EDID 10/27 23:29 Order name: Maxillofacial [facility] EDID Administered Medications: No medications were administered Disposition: 10/28/20 01:08 Discharged to Home. Impression: Superficial injury of head, Facial contusion. - Condition is Stable. - Discharge Instructions: Facial or Scalp Contusion, Head Injury, Adult. - Medication Reconciliation Form, Thank You Letter, Antibiotic Education, Prescription Opioid Use form. - Follow up: Private Physician; When: As needed; Reason: Recheck today's complaints, Re-evaluation by your physician. - Problem is new. - Symptoms have improved. Signatures: Dispatcher [employer] EDID Sebas Diez MD MD rn Antunez, Elena RN Rabia Laguerre ea RN NADIYA ca1 Corrections: (The following items were deleted from the chart) 10/27 23:29 23:25 CT HEAD,C-SPINT W/O ordered. [facility] 23:29 23:25 CT-MAXILLOFACIAL W/O CONTRAST ordered. [facility] 10/28 01:18 01:08 10/28/2020 01:08 Discharged to Home. Impression: Superficial injury of head; ea Facial contusion. Condition is Stable. Forms are Medication Reconciliation Form, Thank You Letter, Antibiotic Education, Prescription Opioid Use. Follow up: Private Physician; When: As needed; Reason: Recheck today's complaints, Re-evaluation by your physician. Problem is new. Symptoms have improved. rn
[2020-10-28 01:35] VITALS: TEMP 98.5
[2020-10-28 01:36] VITALS: BP 115/50; O2SAT 98
--- NOTE | 2020-10-28 14:59 | RAD REPORT ---
EXAM DESCRIPTION: CT - Head C Spine Mpr Wo Con - 10/28/2020 6:22 am CLINICAL HISTORY: Fall, Head Injury COMPARISON: None available TECHNIQUE: Axial CT of the head obtained from the skull apex to the skull base without contrast. Axi al CT images of the cervical spine obtained from the skull base through the thoracic inlet. Sagittal and coronal reformatted images available. FINDINGS: CT head: No acute intracranial hemorrhage identified. No mass, mass effect, shift of the midline, abnormal ext ra-axial fluid collection or CT evidence of acute ischemic change identified. The ventricular system is unremarkable. No acute abnormalities of the supratentorial white matter, basal ganglia, cerebell um, or brainstem. Polypoid mucosal thickening of the left maxillary sinus. Tricholemmal cyst in the left posterior scal p. No skull fracture identified. Visualized orbits and globes are unremarkable. Cervical CT: Alignment of the cervical spine is maintained without evidence of subluxation. The atlantoaxial, at lantodental, and occipitoatlantal intervals are preserved. No fracture identified. Vertebral body h eight preserved. Prevertebral soft tissues are unremarkable. Minimal multilevel endplate spondylosis and facet arthropathy. Intervertebral disc height relatively well-preserved. 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 Visualized skull base is intact. No fracture of the visualized facial bones. Visualized mastoid air c ells and paranasal sinuses are well aerated. Visualized thyroid is unremarkable. No cervical lymphadenopathy. No pneumothorax in the visualized lung apices. IMPRESSION: 1. No acute intracranial abnormality. 2. No acute fracture or subluxation of the cervical spine. 3. Mild multilevel degenerative change of the cervical spine. This exam was performed according to our departmental dose-optimization program, which includes autom ated exposure control, adjustment of the mA and/or kV according to patient size and/or use of iterati ve reconstruction technique. Electronically signed by: Jose Angel Lamb 10/28/2020 12:46 AM ARBORER Due to temporary technical issues with the PACS/Fluency reporting system, reports are being signed by the in house radiologists without review as a courtesy to insure prompt reporting. The interpreting radiologist is fully responsible for the content of the report.
--- NOTE | 2020-10-28 15:00 | RAD REPORT ---
EXAM DESCRIPTION: CT - Maxillofacial Wo Con - 10/28/2020 6:21 am CLINICAL HISTORY: Fall, Head Injury COMPARISON: None available TECHNIQUE: Axial CT of the facial bone obtained without contrast. Coronal and sagittal reformatted i mages available. FINDINGS: Orbits: Orbital floors and daniels are intact. Intraorbital contents: The globes are intact. Extraocular muscles are symmetric. No intraconal fat st randing. Nasal bones: Intact. Maxilla: The maxillary hard palate is intact. Maxillary antral daniels are intact. Sinuses: Polypoid mucosal thickening of the left maxillary sinus. Zygomatic processes: Intact Pterygoid plates: Intact Mandible: Intact. No mandibular condylar dislocation. The most inferior portions of the mandible are not visualized on this study. Skull base/cervical spine: Visualized portions of the skull base and cervical spine are intact. Visua lized mastoid air cells are well aerated. Subcutaneous soft tissues: No abnormality noted in the subcutaneous soft tissues. Neck soft tissues: No definite abnormality involving the nasopharynx, oropharynx, or hypopharynx. Fos sa of Rosenmuller are clear. Parotid glands and submandibular glands are unremarkable. No cervical ly mphadenopathy. IMPRESSION: 1. No acute facial bone fracture identified. This exam was performed according to our departmental dose-optimization program, which includes autom ated exposure control, adjustment of the mA and/or kV according to patient size and/or use of iterati ve reconstruction technique. Electronically signed by: Jose Angel Lamb 10/28/2020 12:58 AM JIGGER MACHINE OPERATOR Due to temporary technical issues with the PACS/Fluency reporting system, reports are being signed by the in house radiologists without review as a courtesy to insure prompt reporting. The interpreting radiologist is fully responsible for the content of the report.
== END 2020-10-28 01:18 | disposition home or self-care (01) ==
LOC: ER 20:58
DX: S00.83XA Contusion of other part of head, initial encounter (principal); W18.09XA Striking against other object with subsequent fall, initial encounter; Y93.01 Activity, walking, marching and hiking; Y92.9 Unspecified place or not applicable; K21.9 Gastro-esophageal reflux disease without esophagitis; Z88.5 Allergy status to narcotic agent
CPT/HCPCS: 70450; 70486; 72125; 99284

== ENCOUNTER 2022-07-26 07:26 | Emergency (ER) | payer OTHER ==
--- OUTSIDE RECORDS SUMMARY | 2022-07-26 07:38 | XMS REPORT | Continuity of Care Document ---
:1960 Author Organization [facility] t Address [address] [place] [address] Care Team Providers Name Role Phone Ulices Sainz MD Primary Care Physician Darwin Pabon DO Attending Clinician SHILPA FERRARO Attending Clinician Unavailable Shilpa Ferraro MD Attending Clinician Doctor Unassigned, [place] Attending Clinician Unavailable Felisha Roth MD Attending Clinician Klarissa Steinberg Attending Clinician Marcio Linda Attending Clinician Uriel Varner Attending Clinician Raul Aguiar Attending Clinician Payers Payer Name Policy Type Policy Number Effective Date Expiration Date S romainebernadine [facility] - [id number] 2015 00:00:00 OUT OF STATE Problems Condition Condition Condition Status Onset Resolution Last Treating Co mments Source Name Details Category Date Date Treatment Clinician Date M25.519 - M25.519 - Diagnosis Active 2018-102019-10-19 Memoria PAIN IN PAIN IN 2-16 12:50:00 l UNSPECIFIE UNSPECIFIE 00:01: He rmann D SHOULDER D SHOULDER 00 Active 10/08/2019 [place] Calcific Calcific Disease Active 2018-10 Meth[facility] di tendinitis tendinitis 2 st of of 00:00: Hospita shoulder shoulder 00 l Disorder Disorder Disease Active 2018-10 Metho di of rotator of rotator 11-25 cuff cuff 00:00: Hospita 00 l Shoulder Shoulder Disease Active 2018-10 Metho di joint pain joint pain 11-25 st 00:00: Hospita 00 l SOB SOB Disease Active [facility] (shortness (shortness 07-06 st of breath) of breath) 00:00: Ho spita 00 l Bradycardi Bradycardi Disease Active M ethodi a a 07-06 st 00:00: Hospita 00 l Carotid Carotid Disease Active Methodi bruit bruit 07-06 st 00:00: Hospita 00 l Palpitatio Palpitatio Disease Active M ethodi ns ns 07-06 00:00: Hospita 00 l Abnormal Abnormal Disease Active Metho di ECG ECG 07-06 00:00: Hospita 00 l Vaginal Vaginal Disease Active 2015-10 [facility] atrophy atrophy 0 st 00:00: Hospita 00 l Dyspareuni Dyspareuni Disease Active M ethodi a a 06-23 st 00:00: Hospita 00 l Encounter Encounter Disease Active Met hodi for for 06-23 gynecologi gynecologi 00:00: Ho spita zhou zhou 00 l examinatio examinatio n n (general) (general) (routine) (routine) without without abnormal abnormal findings findings Menopausal Menopausal Disease Active M ethodi syndrome syndrome 831 st (hot (hot 00:00: Hospita flashes) flashes) 00 l Plantar Plantar Disease Active [facility] fascia fascia 5-05 st syndrome syndrome 00:00: Hospit a 00 l RENAL POST RENAL Diagnosis Active 2015-05-02 Memoria CLINIC POST 708 06:33:00 l CLINIC 00:00: [place] Active 00 04/30/2015 [facility] RENAL POST RENAL Diagnosis Active 2014-11-29 Memoria DONOR POST DONOR 2-03 06:55:00 l CLINIC CLINIC 00:00: [place] Active 00 11/26/2014 [facility] LRD LRD Diagnosis Active 2014-07-05 Mem oria Active 05-17 07:58:00 l 05/17/2014 00:00: Kiran hawthorne [address] DONOR DONOR Diagnosis Active 2013-12-07 Mem oria VISIT VISIT 12-05 06:45:00 l Active 00:00: [place] 12/05/2013 00 [facility] LABS LABS Diagnosis Active 2013-05-28 Mem oria Active 05-28 07:10:00 l 05/28/2013 00:00: Kiran hawthorne [address] LABS // LABS // Diagnosis Active 2013-04-23 Memoria Active 04-17 09:22:00 l 04/17/2013 00:00: Kiran hawthorne [address] BDDC/SCREE BDDC/SCRE Diagnosis Active 2013-05-24 Memoria MARCIA ENING 04-10 15:49:00 l COLONOSCOP COLONOSCOP 00:00: Alejandro mcneill Y Y Active 00 04/10/2013 [facility] RENAL RENAL Diagnosis Active 2013-04-04 Mem oria PT///COLON PT///COLON 03-16 14:51:00 l SCREENING SCREENING 00:00: Esthela james Active 00 03/16/2013 [facility] KIDNEY KIDNEY Diagnosis Active 2013-06-12 [place] DONOR DONOR 5-17 11:50:00 l Active 00:00: [place] 03/09/2013 00 [facility] LIVING LIVING Diagnosis Active 2013-04-21 [place] DONOR EVAL DONOR EVAL 4-16 15:45:00 l Active 00:00: [place] 02/06/2013 00 [facility] Asthma Asthma Disease Active [facility] 1 st 00:00: Hospita 00 l Attention Attention Disease Active Met hodi deficit deficit 3-12 st disorder disorder 00:00: Hospit a (ADD) (ADD) 00 l cyst cyst Problem Resolve 2013-08-30 Elio alex removal on removal on d 21:18:01 l the the [place] forehead forehead Resolved Problem 08/30/2013 [facility] Left Left Problem Resolve 2013-08-30 Elio alex shoulder shoulder d 21:18:01 l surgery1 surgery1 Kiran n Resolved Problem 08/30/2013 <sup>1</s up>2004 [facility] right knee right Problem Resolve 2013-08-30 Memoria arthroscop knee d 21:18:01 l y arthroscop Kiran n y Resolved Problem 08/30/2013 [facility] Total Total Problem Resolve 2013-08-30 Elio alex Abdominal Abdominal d 21:18:01 l hysterecto hysterecto He rmann my my Resolved Problem 08/30/2013 [facility] Tubal Tubal Problem Resolve 2013-08-30 Elio alex ligation2 ligation2 d 21:18:01 l Resolved [place] Problem 08/30/2013 <sup>2</boyce p>1984 [facility] cyst cyst Problem Resolve 2014-12-30 Elio alex removal on removal on d 07:08:21 l the the [place] forehead(C forehead(C onfirmed) onfirmed) Resolved Problem 12/30/2014 [facility] Left Left Problem Resolve 2014-12-30 Elio alex shoulder shoulder d 07:08:21 l surgery(Co surgery(Co He rmann nfirmed)1 nfirmed)1 Resolved Problem 12/30/2014 <sup>1</boyce p>2004 [facility] right knee right Problem Resolve 2014-12-30 Memoria arthroscop knee d 07:08:21 l y(Confirme arthroscop He rmann d) y(Confirme d) Resolved Problem 12/30/2014 [facility] Total Total Problem Resolve 2014-12-30 Elio alex Abdominal Abdominal d 07:08:21 l hysterecto hysterecto He rmerika my(Confirm my(Confirm ed) ed) Resolved Problem 12/30/2014 [facility] Tubal Tubal Problem Resolve 2014-12-30 Mem oria ligation(C ligation(C d 07:08:21 l onfirmed)2 onfirmed)2 He rmann Resolved Problem 12/30/2014 <sup>2</boyce p>1984 [facility] KIDNEY KIDNEY Diagnosis Active 2013-06-12 [place] DONOR DONOR 11:50:00 l Active [facility] Allergies, Adverse Reactions, Alerts Allergy Allergy Status Severity Reaction(s) Onset Inactive Treating Comm ents Source Name Type Date Date Clinician HYDROCOD DRUG Active N/V Univers ONE-ACET 11-09 ity of AMINOPHE 00:00: [place] N 00 Medical Branch Hydrocod Propensi Active Nausea Univer s one-Acet ty to and/or 11-09 ity of aminophe adverse Vomiting 00:00: [place] n reaction 00 Medical s Branch MEPERIDI DRUG Active N/V Univers NE HCL INGREDI 06-23 ity of 00:00: [place] 00 Medical Branch MORPHINE DRUG Active N/V Univers INGREDI 06-23 ity of 00:00: [place] 00 Medical Branch Meperidi Propensi Active Nausea Univer s ne Hcl ty to and/or 06-23 ity of adverse Vomiting 00:00: [place] reaction 00 Medical s Branch Morphine Propensi Active Nausea Univer s ty to and/or 06-23 ity of adverse Vomiting 00:00: [place] reaction Medical s Branch Hydrocod Propensi Active Other (See Me thodi one-Acet ty to Comments) 10-24 aminophe adverse 00:00: Hospita n reaction 00 l s to drug Meperidi Propensi Active Other (See Me thodi ne ty to Comments) 10-24 adverse 00:00: Hospita reaction 00 l s to drug Morphine Propensi Active Method i ty to 10-24 adverse 00:00: Hospita reaction 00 l s to drug Lortab Lortab Active Memoria l [place] Demerol Demerol Active Memoria HCl HCl l [place] Family History Family Member Diagnosis Comments Start Date Stop Date Source Natural father [facility] Natural father Heart disease [facility] Natural mother Heart disease [facility] Natural mother Hypertension [facility] Natural mother Seizures [facility] Social History Social Habit Start Date Stop Date Quantity Comments Source Tobacco use and 2019-11-09 2019-11-09 Never used Universit y of exposure 00:00:00 00:00:00 [facility] Alcohol intake 2019-11-01 2019-11-01 Current drinker [facility] dist 00:00:00 00:00:00 of alcohol Hospital (finding) Cigarettes smoked 2019-07-06 2019-07-06 [facility] current (pack per 00:00:00 00:00:00 Hospita l day) - Reported Cigarette 2019-07-06 2019-07-06 [facility] pack-years 00:00:00 00:00:00 Hospital History of tobacco 2005-10-24 Smoker Univer sity of use 00:00:00 [facility] Sex Ass[birth year] Universit y of 00:00:00 00:00:00 [facility] Smoking Status Start Date Stop Date Source Social History 2018-11-21 15:36:07 2018-11-21 15:36:07 [facility] Medications Ordered Filled Start Stop Current Ordering Indication Dosage Frequency Signature Comments Components Source Medication Medication Date Date Medication? Clinician (SIG) Name Name atorfrannietati Yes 20mg QD Take 1 Meth sherron n (LIPITOR) 8-18 tablet (20 st 20 mg 00:00: mg total) Hospita tablet 00 by mouth l daily. estradiol Yes [id number] 1{patch Apply 1 Univers (CLIMARA) 3-17 } Patch to ity of 0.05 mg/24 00:00: skin [place] hr patch 00 weekly. [facility] estradiol Yes [id number] 1{patch Apply 1 Univers (CLIMARA) 3-17 } Patch to ity of 0.05 mg/24 00:00: skin [place] hr patch 00 weekly. [facility] estradiol Yes [id number] 1{patch Apply 1 Univers (CLIMARA) 3-17 } Patch to ity of 0.05 mg/24 00:00: skin [place] hr patch 00 weekly. [facility] estradiol Yes [id number] 1{patch Apply 1 Univers (CLIMARA) 3-17 } Patch to ity of 0.05 mg/24 00:00: skin [place] hr patch 00 weekly. [facility] estradiol Yes [id number] 1{patch Apply 1 Univers (CLIMARA) 3-17 } Patch to ity of 0.05 mg/24 00:00: skin [place] hr patch 00 weekly. [facility] estradiol Yes [id number] 1{patch Apply 1 Univers (CLIMARA) 3-17 } Patch to ity of 0.05 mg/24 00:00: skin [place] hr patch 00 weekly. [facility] estradiol Yes [id number] 1{patch Apply 1 Univers (CLIMARA) 3-17 } Patch to ity of 0.05 mg/24 00:00: skin [place] hr patch 00 weekly. Medical Branch conjugated 2020-0 Yes [id number] 1 gram in Univers estrogens 1-18 the vagina ity of 0.625 00:00: every [place] mg/gram 00 night for Medical vaginal 1 week, Branch cream then 0.5 grams in the vagina on ay evening conjugated 2020-0 Yes [id number] 1 gram in Univers estrogens 1-18 the vagina ity of 0.625 00:00: every [place] mg/gram 00 night for Medical vaginal 1 week, Branch cream then 0.5 grams in the vagina on evening conjugated 2020-0 Yes [id number] 1 gram in Univers estrogens 1-18 the vagina ity of 0.625 00:00: every [place] mg/gram 00 night for Medical vaginal 1 week, Branch cream then 0.5 grams in the vagina on ay evening conjugated 2020-0 Yes [id number] 1 gram in Univers estrogens 1-18 the vagina ity of 0.625 00:00: every [place] mg/gram 00 night for Medical vaginal 1 week, Branch cream then 0.5 grams in the vagina on evening conjugated 2020-0 Yes [id number] 1 gram in Univers estrogens 1-18 the vagina ity of 0.625 00:00: every [place] mg/gram 00 night for Medical vaginal 1 week, Branch cream then 0.5 grams in the vagina on evening conjugated 2020-0 Yes [id number] 1 gram in Univers estrogens 1-18 the vagina ity of 0.625 00:00: every [place] mg/gram 00 night for Medical vaginal 1 week, Branch cream then 0.5 grams in the vagina on evening conjugated 2020-0 Yes [id number] 1 gram in Univers estrogens 1-18 the vagina ity of 0.625 00:00: every [place] mg/gram 00 night for Medical vaginal 1 week, Branch cream then 0.5 grams in the vagina on rsday evening conjugated 2020-0 Yes [id number] 1 gram in Univers estrogens 1-18 the vagina ity of 0.625 00:00: every [place] mg/gram 00 night for Medical vaginal 1 week, Branch cream then 0.5 grams in the vagina on Tuesday/Tue evening conjugated 2020-0 Yes [id number] 1 gram in Univers estrogens 1-18 the vagina ity of 0.625 00:00: every [place] mg/gram 00 night for Medical vaginal 1 week, Branch cream then 0.5 grams in the vagina on Tuesday/Tue evening ALBUTEROL 2020-0 Yes Inhale. Unive rs SULFATE 1-17 ity of (PROVENTIL 20:52: [place] HFA INHALE) Medical Branch tiZANidine 2020-0 Yes 4mg Take 4 mg Un sarah 4 mg tablet 1-17 by mouth. ity of 20:52: [place] [address] Medical Branch omeprazole 2020-0 Yes 40mg Take 40 mg U nivers 40 mg 1-17 by mouth ity of capsule 20:52: daily. [address] Branch Lactobac 2020-0 Yes Take by Univer s no.41/Bifid 1-17 mouth. ity of obact no.7 20:52: [place] (PROBIOTIC- 12 Medical 10 ORAL) Branch ALBUTEROL 2020-0 Yes Inhale. Unive rs SULFATE -17 ity of (PROVENTIL 20:52: [place] HFA INHALE) [address] [place] [address] Branch tiZANidine 2020-0 Yes 4mg Take 4 mg Un sarah 4 mg tablet 1-17 by mouth. ity of 20:52: [address] Branch omeprazole 2020-0 Yes 40mg Take 40 mg U nivers 40 mg 1-17 by mouth ity of capsule 20:52: daily. [address] Branch Lactobac 2020-0 Yes Take by Univer s no.41/Bifid 1-17 mouth. ity of obact no.7 20:52: [place] (PROBIOTIC- 12 Medical 10 ORAL) Branch ALBUTEROL 2020-0 Yes Inhale. Unive rs SULFATE 1-17 ity of (PROVENTIL 20:52: [place] HFA INHALE) Medical Branch tiZANidine 2020-0 Yes 4mg Take 4 mg Un sarah 4 mg tablet 1-17 by mouth. ity of 20:52: [address] Branch omeprazole 2020-0 Yes 40mg Take 40 mg U nivers 40 mg 1-17 by mouth ity of capsule 20:52: daily. [address] Branch Lactobac 2020-0 Yes Take by Univer s no.41/Bifid 1-17 mouth. ity of obact no.7 20:52: [place] (PROBIOTIC- 12 Medical 10 ORAL) Branch ALBUTEROL 2020-0 Yes Inhale. Unive rs SULFATE 1-17 ity of (PROVENTIL 20:52: [place] HFA INHALE) [address] [place] [address] Branch tiZANidine 2020-0 Yes 4mg Take 4 mg Un sarah 4 mg tablet 1-17 by mouth. ity of 20:52: [address] Branch omeprazole 2020-0 Yes 40mg Take 40 mg U nivers 40 mg 1-17 by mouth ity of capsule 20:52: daily. [address] Branch Lactobac 2020-0 Yes Take by Univer s no.41/Bifid 1-17 mouth. ity of obact no.7 20:52: [place] (PROBIOTIC- 12 Medical 10 ORAL) Branch ALBUTEROL 2020-0 Yes Inhale. Unive rs SULFATE 1-17 ity of (PROVENTIL 20:52: [place] HFA INHALE) [address] [place] [address] Branch tiZANidine 2020-0 Yes 4mg Take 4 mg Un sarah 4 mg tablet 1-17 by mouth. ity of 20:52: [address] Branch omeprazole 2020-0 Yes 40mg Take 40 mg U nivers 40 mg 1-17 by mouth ity of capsule 20:52: daily. [address] Branch Lactobac 2020-0 Yes Take by Univer s no.41/Bifid 1-17 mouth. ity of obact no.7 20:52: [place] (PROBIOTIC- 12 Medical 10 ORAL) Branch ALBUTEROL 2020-0 Yes Inhale. Unive rs SULFATE 1-17 ity of (PROVENTIL 20:52: [place] HFA INHALE) [address] [place] [address] Branch tiZANidine 2020-0 Yes 4mg Take 4 mg Un sarah 4 mg tablet 1-17 by mouth. ity of 20:52: [address] Branch omeprazole 2020-0 Yes 40mg Take 40 mg U nivers 40 mg 1-17 by mouth ity of capsule 20:52: daily. [address] Branch Lactobac 2020-0 Yes Take by Univer s no.41/Bifid 1-17 mouth. ity of obact no.7 20:52: [place] (PROBIOTIC- 12 Medical 10 ORAL) Branch ALBUTEROL 2020-0 Yes Inhale. Unive rs SULFATE 1-17 ity of (PROVENTIL 20:52: [place] HFA INHALE) Medical Branch tiZANidine 2020-0 Yes 4mg Take 4 mg Un sarah 4 mg tablet 1-17 by mouth. ity of 20:52: [place] [address] Medical Branch omeprazole 2020-0 Yes 40mg Take 40 mg U nivers 40 mg 1-17 by mouth ity of capsule 20:52: daily. [place] [address] Medical Branch Lactobac 2019-0 Yes Take by Univer s no.41/Bifid 1-17 mouth. ity of obact no.7 20:52: [place] (PROBIOTIC- 12 Medical 10 ORAL) Branch ALBUTEROL 2020-0 Yes [facility]. [facility] SULF[facility] 1-17 ity of (PROVENTIL 20:52: [place] HFA INHALE) 12 Medical Branch tiZANidine 2019-0 Yes 4mg Take 4 mg Un sarah 4 mg tablet 1-17 by mouth. ity of 20:52: [place] [address] Medical Branch omeprazole 2019-0 Yes 40mg Take 40 mg U nivers 40 mg 1-17 by mouth ity of capsule 20:52: daily. [place] [address] Medical Branch Lactobac 2019-0 Yes Take by Univer s no.41/Bifid 1-17 mouth. ity of obact no.7 20:52: [place] (PROBIOTIC- 12 Medical 10 ORAL) Branch ALBUTEROL 2019-0 Yes Inhale. [facility] rs SULFATE 1-17 ity of (PROVENTIL 20:52: [place] HFA INHALE) Medical Branch tiZANidine 2019-0 Yes 4mg Take 4 mg Un sarah 4 mg tablet 1-17 by mouth. ity of 20:52: [place] [address] Medical Branch omeprazole 2020-0 Yes 40mg Take 40 mg U nivers 40 mg 1-17 by mouth ity of capsule 20:52: daily. [place] [address] Medical Branch Lactobac 2019-0 Yes Take by Univer s no.41/Bifid 1-17 mouth. ity of obact no.7 20:52: [place] (PROBIOTIC- 12 Medical 10 ORAL) Branch MONTELUKAST 2019-0 Yes Take by Uni vers SODIUM 1-17 mouth. ity of (SINGULAIR 20:51: [place] ORAL) Medical Branch levocetiriz 2019-0 Yes 5mg Take 5 mg U nivers ine (XYZAL) 1-17 by mouth ity of 5 mg tablet 20:51: every [place] [address] evening. Medical Branch MONTELUKAST 2019-0 Yes Take by Uni vers SODIUM 1-17 mouth. ity of (SINGULAIR 20:51: [place] ORAL) 22 Medical Branch levocetiriz 2020-0 Yes 5mg Take 5 mg U nivers ine (XYZAL) 1-17 by mouth ity of 5 mg tablet 20:51: every [place] 22 evening. Medical Branch MONTELUKAST 2020-0 Yes Take by Uni vers SODIUM 1-17 mouth. ity of (SINGULAIR 20:51: [place] ORAL) 22 Medical Branch levocetiriz 2020-0 Yes 5mg Take 5 mg U nivers ine (XYZAL) 1-17 by mouth ity of 5 mg tablet 20:51: every [place] 22 evening. Medical Branch MONTELUKAST 2019-0 Yes Take by Uni vers SODIUM 1-17 mouth. ity of (SINGULAIR 20:51: [place] ORAL) 22 Medical Branch levocetiriz 2019-0 Yes 5mg Take 5 mg U nivers ine (XYZAL) 1-17 by mouth ity of 5 mg tablet 20:51: every [place] 22 evening. Medical Branch MONTELUKAST 2019-0 Yes Take by Uni vers SODIUM 1-17 mouth. ity of (SINGULAIR 20:51: [place] ORAL) 22 Medical Branch levocetiriz 2019-0 Yes 5mg Take 5 mg U nivers ine (XYZAL) 1-17 by mouth ity of 5 mg tablet 20:51: every [place] 22 evening. Medical Branch MONTELUKAST 2019-0 Yes Take by Uni vers SODIUM 1-17 mouth. ity of (SINGULAIR 20:51: [place] ORAL) 22 Medical Branch levocetiriz 2020-0 Yes 5mg Take 5 mg U nivers ine (XYZAL) 1-17 by mouth ity of 5 mg tablet 20:51: every [place] 22 evening. Medical Branch MONTELUKAST 2020-0 Yes Take by Uni vers SODIUM 1-17 mouth. ity of (SINGULAIR 20:51: [place] ORAL) 22 Medical Branch levocetiriz 2020-0 Yes 5mg Take 5 mg U nivers ine (XYZAL) 1-17 by mouth ity of 5 mg tablet 20:51: every [place] 22 evening. Medical Branch MONTELUKAST 2020-0 Yes Take by Uni vers SODIUM 1-17 mouth. ity of (SINGULAIR 20:51: [place] ORAL) 22 Medical Branch levocetiriz 2020-0 Yes 5mg Take 5 mg U nivers ine (XYZAL) 1-17 by mouth ity of 5 mg tablet 20:51: every [place] 22 evening. Medical Branch MONTELUKAST 2019-0 Yes Take by Uni vers SODIUM 1-17 mouth. ity of (SINGULAIR 20:51: [place] ORAL) 22 Medical Branch levocetiriz 2019-0 Yes 5mg Take 5 mg U nivers ine (XYZAL) 1-17 by mouth ity of 5 mg tablet 20:51: every [place] 22 evening. Medical Branch budesonide- 2019-0 Yes 2{puff} Inhale 2 Univers formoterol 1-17 Puffs 2 ity of (SYMBICORT) 20:50: (two) [place] 160-4.5 46 times Medical mcg/actuati daily. Branch on inhaler budesonide- 2019-0 Yes 2{puff} Inhale 2 Univers formoterol 1-17 Puffs 2 ity of (SYMBICORT) 20:50: (two) [place] 160-4.5 46 times Medical mcg/actuati daily. Branch on inhaler budesonide- 2019-0 Yes 2{puff} Inhale 2 Univers formoterol 1-17 Puffs 2 ity of (SYMBICORT) 20:50: (two) [place] 160-4.5 46 times Medical mcg/actuati daily. Branch on inhaler budesonide- 2019-0 Yes 2{puff} Inhale 2 Univers formoterol 1-17 Puffs 2 ity of (SYMBICORT) 20:50: (two) [place] 160-4.5 46 times Medical mcg/actuati daily. Branch on inhaler budesonide- 2019-0 Yes 2{puff} Inhale 2 Univers formoterol 1-17 Puffs 2 ity of (SYMBICORT) 20:50: (two) [place] 160-4.5 46 times Medical mcg/actuati daily. Branch on inhaler budesonide- 2019-0 Yes 2{puff} Inhale 2 Univers formoterol 1-17 Puffs 2 ity of (SYMBICORT) 20:50: (two) [place] 160-4.5 46 times Medical mcg/actuati daily. Branch on inhaler budesonide- 2019-0 Yes 2{puff} Inhale 2 Univers formoterol 1-17 Puffs 2 ity of (SYMBICORT) 20:50: (two) [place] 160-4.5 46 times Medical mcg/actuati daily. Branch on inhaler budesonide- Yes 2{puff} Inhale 2 Univers formoterol 1-17 Puffs 2 ity of (SYMBICORT) 20:50: (two) [place] 160-4.5 46 times Medical mcg/actuati daily. Branch on inhaler budesonide- Yes 2{puff} Inhale 2 Univers formoterol 1-17 Puffs 2 ity of (SYMBICORT) 20:50: (two) [place] 160-4.5 46 times Medical mcg/actuati daily. Branch on inhaler multivitami Yes 1{tbl} QD Take 1 Me thodi n with 1-[address] minerals 13:23: mouth Hospita tablet 43 daily. l B Yes Take by Methodi infantis/B 1-[address] ani/B angie/B 13:23: Hospit a bifid 43 l ([facility]BIOTIC 4X [facility] Yes 20mg Take 20 mg Univers n 20 mg 2-02 by mouth. ity of tablet 00:00: [address] atorvasta 2018-10 Yes 20mg Take 20 mg Univers n 20 mg 2-02 by mouth. ity of tablet 00:00: [address] atorvastati 2018-10 Yes 20mg Take 20 mg Univers n 20 mg 2-02 by mouth. ity of tablet 00:00: [address] atorvastati 2018-10 Yes 20mg Take 20 mg Univers n 20 mg 2-02 by mouth. ity of tablet 00:00: [address] atorvastati 2018-10 Yes 20mg Take 20 mg Univers n 20 mg 2-02 by mouth. ity of tablet 00:00: [address] atorvastati 2018-10 Yes 20mg Take 20 mg Univers n 20 mg 2-02 by mouth. ity of tablet 00:00: [address] atorvastati 2018-10 Yes 20mg Take 20 mg Univers n 20 mg 2-02 by mouth. ity of tablet 00:00: [address] atorvastati 2019-1 Yes 20mg Take 20 mg Univers n 20 mg 2-02 by mouth. ity of tablet 00:00: [address] atorvastati 2018-10 Yes 20mg Take 20 mg Univers n 20 mg 2-02 by mouth. ity of tablet 00:00: [address] famotidine 2018-10 Yes Univers 40 mg 1-18 ity of tablet 00:00: [address] famotidine 2018-10 Yes Univers 40 mg 1-18 ity of tablet 00:00: [address] famotidine 2018-10 Yes Univers 40 mg 1-18 ity of tablet 00:00: [address] famotidine 2018-10 Yes Univers 40 mg 1-18 ity of tablet 00:00: [address] famotidine 2018-10 Yes Univers 40 mg 1-18 ity of tablet 00:00: [address] famotidine 2018-10 Yes Univers 40 mg 1-18 ity of tablet 00:00: [address] famotidine 2018-10 Yes Univers 40 mg 1-18 ity of tablet 00:00: [address] famotidine 2018-10 Yes Univers 40 mg 1-18 ity of tablet 00:00: [address] famotidine 2018-10 Yes Univers 40 mg 1-18 ity of tablet 00:00: [address] famotidine 2018-10 Yes [facility] (PEPCID) 40 1-18 st MG tablet 00:00: Hospita 00 l SYMBICORT Yes [facility] 80-4.5 9-08 st mcg/actuati 00:00: Hospit a on inhaler 00 l levocetiriz Yes 5mg QD Take 5 mg M ethodi ine (XYZAL) 8-[address] 5 MG tablet 00:00: daily. Hosp juan 00 l estradiol Yes APPLY 1 Metho di (VIVELLE-DO 8-[address] T) 0.05 00:00: SKIN Hospita mg/24 hr 00 WEEKLY. l BOTOX 200 Yes [facility] unit recon 6-25 st soln 00:00: Hospita 00 l Omeprazole Yes PO, Daily, M emoria 1-29 0 l 15:37: Refill(s) [place] 00 Estradiol Yes 0 Memoria 1-29 Refill(s) l 15:37: [place] 00 Xyzal Yes PO, QPM, 0 Memori a 1-29 Refill(s) l 15:37: [place] 00 200 ACTUAT 0 Yes 2 puff, Elio alex Albuterol 1-29 INHALATION l 0.09 15:37: , QID, 0 [place] MG/ACTUAT 00 Refill(s) Metered Dose Inhaler [Proventil] Symbicort Yes 2 puff, Memor ia 160/4.5 1-29 INHALATION l inhalation 15:37: , BID, 0 Her kaiser aerosol 00 Refill(s) with adapter tizanidine Yes PO, 0 Memori a 1-29 Refill(s) l 15:37: [place] 00 Singulair 0 Yes Daily, 0 Elio alex 1-29 Refill(s) l 15:37: [place] 00 budesonide- Yes 2{puff} Inhale 2 Univers formoterol 1-16 Puffs 2 ity of (SYMBICORT) 15:19: (two) [place] 160-4.5 26 times Medical mcg/actuati daily. Branch on inhaler ALBUTEROL Yes Inhale. [facility] rs SULFATE 1-16 ity of (PROVENTIL 15:19: [place] HFA INHALE) Medical Branch MONTELUKAST Yes Take by Uni vers SODIUM 1-16 mouth. ity of (SINGULAIR 15:19: [place] ORAL) Medical Branch levocetiriz Yes 5mg Take 5 mg U nivers ine (XYZAL) -16 by mouth ity of 5 mg tablet 15:19: every [place] [address] evening. Medical Branch tiZANidine Yes 4mg Take 4 mg Un sarah 4 mg tablet 1-16 by mouth. ity of 15:19: [place] [address] Medical Branch omeprazole Yes 40mg Take 40 mg U nivers 40 mg 1-16 by mouth ity of capsule 15:19: daily. [place] [address] Medical Branch Lactobac Yes Take by Univer s no.41/Bifid 1-16 mouth. ity of obact no.7 15:19: [place] (PROBIOTIC- 26 Medical 10 ORAL) Branch estradiol 0 Yes [id number] 1{patch Apply 1 Univers (CLIMARA) 1-16 } Patch to ity of 0.05 mg/24 00:00: skin [place] hr patch 00 weekly. [facility] estradiol Yes [id number] 1{patch Apply 1 Univers (CLIMARA) 1-16 } Patch to ity of 0.05 mg/24 00:00: skin [place] hr patch 00 weekly. [facility] estradiol Yes [id number] 1{patch Apply 1 Univers (CLIMARA) 1-16 } Patch to ity of 0.05 mg/24 00:00: skin [place] hr patch 00 weekly. [facility] estradiol 2020- No [id number] 1{patch Apply 1 Univers (CLIMARA) 1-16 03-17 } Patch to ity o f 0.05 mg/24 00:00: 00:00 skin [place] hr patch 00 :00 weekly. [facility] Probiotic Yes 1 cap, PO, Me moria Formula 2-06 Daily, 0 l oral 13:16: Refill(s) [facility] capsule 00 albuterol Yes [facility] (PROVENTIL 2 st HFA) 90 00:00: [facility]ospita mcg/actuati 00 l on inhaler EPINEPHrine Yes [facility] 0.3 mg/0.[address] mL syringe 00:00: Hospita 00 l montelukast Yes [facility] (SINGULAIR) 2 st 10 mg 00:00: Hospita tablet 00 l Zofran 4 mg Yes Jagruti 4 mg, 1 Memoria oral tablet 8-12 Semaj-Tayl tab, PO, l 15:59: or Q8H, PRN, Jaiden 54 30 tab, as needed for nausea/vom iting, Substituti on Allowed tramadol 50 Yes Jagruti 50 mg, 1 Memoria mg oral 8-12 Semaj-Tayl tab, PO, l tablet 15:58: or Q4H, PRN, Kiran n 54 50 tab, as needed for pain, Substituti on Allowed, TAB simethicone Yes Jagruti 80 mg, 1 Memoria 80 mg oral 8-12 Semaj-Tayl tab, CHEW, l tablet, 15:58: or TID, PRN, Filomena nn chewable 48 40 tab, Gas, Substituti on Allowed, Maintenanc e, CHEWTAB docusate Yes Jagruti 100 mg, 1 Memoria sodium 100 06-04 Semaj-Tayl cap, PO, l mg oral 15:58: or Q8H, 60 Jaiden capsule 39 cap, 0, 0, Substituti on Allowed, CAP simethicone No Marga C 80 mg, 1 Memoria 06-04 Dawson tab, l 02:54: Route: [place] CHEW, Drug form: CHEWTAB, TID, Dosing Weight 55, kg, PRN Gas, Priority: STAT, Start date: 06/03/13 21:54:00, Duration: 30 day, Stop date: 07/03/13 21:53:00 tramadol 50 No Marga C 50 mg, 1 Memoria mg oral 06-03 [place] tab, l tablet 17:00: Route: PO, Filomena Drug form: TAB, Q4H, Dosing Weight 55, kg, PRN as needed for pain, Start date: 06/03/13 12:00:00, Duration: 30 day, Stop date: 07/03/13 8:00:00 Ditropan 2012- No Reji D 5 mg, 1 Me moria 11 Person tab, l 00:05: Route: PO, [place] 00 Drug form: TAB, TID, Dosing Weight 55, kg, PRN Bladder Spasm, Start date: 06/02/13 19:05:00, Duration: 30 day, Stop date: 07/02/13 19:04:00 docusate 0 No Jagruti 100 mg, 1 Memoria sodium 06-02 Semaj-Tayl cap, l 21:00: or Route: PO, Drug form: CAP, Q8H, Dosing Weight 55, kg, Start date: 06/02/13 16:00:00, Duration: 30 day, Stop date: 07/02/13 8:00:00 Dulcolax 2012-0 No Reji D 10 mg, 1 M emoria Laxative 8-10 Person supp, l 16:08: Route: [place], [place] 00 Drug form: SUPP, Daily, Dosing Weight 55, kg, PRN Constipati on, Start date: 06/02/13 11:08:00, Duration: 30 day, Stop date: 07/02/13 11:07:00 Willard 5/325 2012-0 No Olya 1 tab, Elio alex oral tablet 06-02 Route: PO, l 16:06: Joel Drug Form: Herm erika 00 TAB, Dosing Weight 55, kg, Q4H, PRN Pain, Start date: 06/02/13 11:06:00, Duration: 30 day, Stop date: 07/02/13 11:05:00 MiraLax 2012-0 No Jagruti 17 gm, 1 Me moria 06-02 Semaj-Tayl pkt, l 14:00: or Route: PO, Drug form: PWDR, ONCE, Dosing Weight 55, kg, Start date: 06/02/13 9:00:00, Duration: 1 doses or times, Stop date: 06/02/13 9:00:00 ondansetron 0 No Marga C 4 mg, 2 Memoria 06-02 Dawson mL, Route: l 00:53: IVP, Drug form: INJ, ONCE, Dosing Weight 55, kg, Priority: STAT, Start date: 06/01/13 19:53:00, Stop date: 06/01/13 19:53:00 acetaminoph 2012- No Jagruti 1,000 mg, Memoria en 06-01 [...] 30 day, Stop date: 07/01/13 15:58:00 droperidol No Dinorah R 0.625 mg, Memoria 06-01 Rajwinder Route: l 18:40: IVP, ONCE, Dosing Weight 55, kg, PRN Nausea, Start date: 06/01/13 13:40:00, Stop date: 07/01/13 13:39:00 pantoprazol 2012- No Jagruti 40 mg, 1 Memoria e 06-01 Semaj-Tayl tab, l 18:30: or Route: PO, Drug form: ECTAB, Before Breakfast, Dosing Weight 55, kg, Start date: 06/01/13 13:30:00, Duration: 30 day, Stop date: 07/01/13 7:30:00 promethazin 2012- No Dinorah R 6.25 mg, Memoria e 06-01 [place] 0.25 mL, l 17:55: Route: IVPB, Drug form: INJ, ONCE, Dosing Weight [...] 30 day, Stop date: 07/01/13 12:14:00 polyethylen 2012- No Jagruti 17 gm, 1 Memoria e glycol 06-01 Semaj-Tayl pkt, l 3350 17:15: or Route: PO, Drug form: PWDR, BID, Dosing Weight 55, kg, Start date: 06/01/13 12:15:00, Duration: 30 day, Stop date: 07/01/13 9:00:00 Saline 2012-0 No Jagruti 5 ml, Memori a Flush 0.9% 06-01 [facility] Route: l 17:15: or IVP, Drug Form: INJ, Dosing Weight 55, kg, PRN, PRN Line Flush, Start date: 06/01/13 12:15:00, Duration: 30 day, Stop date: 07/01/13 12:14:00 hydromorpho No Olya 0.5 mg, Mem oria ne 06-01 Marcio 0.25 mL, l 17:15: Hobeika Route: IVP, Drug form: INJ, Q3H, Dosing Weight 55, kg, PRN Pain Score 7-10, Start date: 06/01/13 12:15:00, Duration: 30 day, Stop date: 07/01/13 12:14:00 ondansetron No Ivy M 4 mg, Memoria 06-01 Braly Route: l 16:51: IVP, ONCE, Dosing Weight 55, kg, PRN Nausea & Vomiting, Start date: 06/01/13 11:51:00 dexamethaso No Ivy M 4 mg, Memoria ne 06-01 Braly Route: l 16:51: IVP, ONCE, Dosing Weight 55, kg, PRN Nausea & Vomiting, Start date: 06/01/13 11:51:00 flumazenil No Dinorah R 0.2 mg, 2 Memoria 06-01 Rajwinder mL, Route: l 16:51: IVP, Drug form: INJ, PRN, Dosing Weight 55, kg, PRN Benzodiaze pine Reversal, Initial dose, Start date: 06/01/13 11:51:00, Duration: 1 day, Stop date: 06/02/13 11:50:00 naloxone No Dinorah R 0.04 mg, M emoria 06-01 [place] 0.1 mL, l 16:51: Route: IVP, Drug form: INJ, Q2MIN, Dosing Weight 55, kg, PRN Narcotic Reversal, Start date: 06/01/13 11:51:00, Duration: 8 doses or times, Stop date: Limited # of times hydromorpho No Dinorah R 0.5 mg, Memoria ne 06-01 [place] 0.25 mL, l 16:51: Route: [place] IVP, Drug form: INJ, Q5Min, Dosing Weight 55, kg, PRN Pain Score 7-10, Start date: 06/01/13 11:51:00, Duration: 5 doses or times, Stop date: Limited # of times acetaminoph 2012- No Ivy M 1,000 mg, Memoria en 10 mg/mL 06-01 Braly Route: IV, l intravenous 16:51: Drug form: [place] solution 00 INJ, ONCE, Dosing Weight 55, kg, PRN Pain Score 4-6, Start date: 06/01/13 11:51:00, Duration: 1 doses or times, Stop date: Limited # of times, Infuse over 15 minutes (for patient weight 50 kg or greater)In fuse over 15 minutes (for patient weight 50 kg or greater) Ancef No Jagruti 1 gm, Memoria 06-01 [facility] Route: IV, l 11:00: or Drug form: [place] PDR/INJ, ONCE, Dosing Weight 56.8, kg, Start date: 06/01/13 6:00:00, Stop date: 06/01/13 6:00:00 Sodium No Jagruti 250 mL, Elio alex Chloride 06-01 [facility] Rate: On l 0.9% 05:37: [...] 30 day, Stop date: 06/30/13 20:17:00 magnesium 2012- No Jagruti 300 ml, M emoria citrate 05-31 [facility] Route: PO, l 22:00: or Drug Form: Jaiden 00 LIQ, Dosing Weight 56.8, kg, ONCE, Start date: 05/31/13 17:00:00, Stop date: 05/31/13 17:00:00 1/2 NS No Jagruti 1,000 mL, Me moria 1,000 mL 05-31 [facility] Rate: 125 l 17:01: or ml/hr, Infuse over: 8 hr, Route: IV, Dosing Weight 56.8 kg, Total Volume: 1,000, Start date: 05/31/13 12:01:00, Duration: 30 day, Stop date: 06/30/13 12:00:00 methocarbam Yes PRN, as Mem oria ol 750 mg 605 needed for l oral tablet 16:25: pain, Filomena nn 17 Substituti on Allowed HYDROcodone Yes 1 tab, PO, Memoria -ibuprofen 6-05 Q4H, PRN, l 7.5 mg-200 16:23: for pain, He rmann mg oral 32 Substituti tablet on Allowed, Maintenanc e, TAB Immunizations Ordered Filled Immunization Date Status Comments [facility] e Immunization Name Name Influenza Virus 2018-11-08 Completed Universit y of Vaccine Quad .5 mL 00:00:00 [facility] 6+ MO Branch Tdap 2018-11-08 Completed University of 00:00:00 [facility] Influenza Virus 2018-11-08 Completed Universit y of Vaccine Quad .5 mL 00:00:00 [facility] 6+ MO Branch Tdap 2018-11-08 Completed University of 00:00:00 [facility] Influenza Virus 2018-11-08 Completed Universit y of Vaccine Quad .5 mL 00:00:00 [facility] 6+ MO Branch TDAP 2018-11-08 Completed University of 00:00:00 [facility] Influenza Virus 2018-11-08 Completed Universit y of Vaccine Quad .5 mL 00:00:00 [facility] 6+ MO Branch TDAP 2018-11-08 Completed University of 00:00:00 [facility] Influenza Virus 2018-11-08 Completed Universit y of Vaccine Quad .5 mL 00:00:00 [facility] 6+ MO Branch TDAP 2018-11-08 Completed University of 00:00:00 [facility] Influenza Virus 2018-11-08 Completed Universit y of Vaccine Quad .5 mL 00:00:00 [facility] IM 6+ MO Branch Tdap 2018-11-08 Completed University of 00:00:00 [facility] Influenza Virus 2018-11-08 Completed Universit y of Vaccine Quad .5 mL 00:00:00 [place] [facility] IM 6+ MO Branch Tdap 2018-11-08 Completed University of 00:00:00 [facility] Influenza Virus 2018-11-08 Completed Universit y of Vaccine Quad .5 mL 00:00:00 [facility] IM 6+ MO Branch Tdap 2018-11-08 Completed University of 00:00:00 [facility] Influenza Virus 2018-11-08 Completed Universit y of Vaccine Quad .5 mL 00:00:00 [facility] IM 6+ MO Branch Tdap 2018-11-08 Completed University of 00:00:00 [facility] Influenza Virus 2018-11-08 Completed Universit y of Vaccine Quad .5 mL 00:00:00 [facility] 6+ MO Branch Tdap 2018-11-08 Completed University of 00:00:00 [facility] Vital Signs Vital Name Observation Time Observation Value Comments Source Systolic blood 2019-11-09 20:47:00 112 mm[Hg] Univer sity of pressure [facility] Diastolic blood 2019-11-09 20:47:00 72 mm[Hg] Unive rsity of [facility] Heart rate 2019-11-09 20:47:00 63 /min General acute hospital Body temperature 2019-11-09 20:47:00 36.44 Shruti [facility] Respiratory rate 2019-11-09 20:47:00 18 /min [facility] Body height 2019-11-09 20:47:00 160 cm General acute hospital Body weight 2019-11-09 20:47:00 56.7 kg General acute hospital BMI 2019-11-09 20:47:00 22.14 kg/m2 General acute hospital Systolic blood 2019-11-09 20:47:00 112 mm[Hg] Univer sity of pressure [facility] Diastolic blood 2019-11-09 20:47:00 72 mm[Hg] Unive rsity of pressure [facility] Heart rate 2019-11-09 20:47:00 63 /min General acute hospital Body temperature 2019-11-09 20:47:00 36.44 Shruti [facility] Respiratory rate 2019-11-09 20:47:00 18 /min [facility] Body height 2019-11-09 20:47:00 160 cm General acute hospital Body weight 2019-11-09 20:47:00 56.7 kg General acute hospital BMI 2019-11-09 20:47:00 22.14 kg/m2 General acute hospital Systolic (mm Hg) 2018-11-21 15:31:00 Elio rial [place] Diastolic (mm Hg) 2018-11-21 15:31:00 Mem orial [place] Heart Rate 2018-11-21 15:31:00 [facility] [place] Temperature Oral (F) 2018-11-21 15:31:00 98.1 F [facility] [place] Height 2018-11-21 15:31:00 160.02 cm [facility] [place] Weight 2018-11-21 15:31:00 [facility] [place] BMI Calculated 2018-11-21 15:31:00 Memori al [place] Weight 2015-05-02 12:20:00 [facility] [place] BMI Calculated 2015-05-02 12:20:00 Memori al [place] Respitory Rate 2015-05-02 12:20:00 Memori al [place] Heart Rate 2015-05-02 12:20:00 [facility] [place] Systolic (mm Hg) 2015-05-02 12:20:00 Elio rial [place] Diastolic (mm Hg) 2015-05-02 12:20:00 Mem orial [place] Height 2015-05-02 12:20:00 160 cm [facility] [place] Temperature Oral (F) 2015-05-02 12:20:00 97.3 F [facility] [place] Height 2014-11-29 13:17:00 160.02 cm [facility] [place] Heart Rate 2014-11-29 13:17:00 [facility] [place] Respitory Rate 2014-11-29 13:17:00 Memori al [place] Systolic (mm Hg) 2014-11-29 13:17:00 Elio rial [place] Diastolic (mm Hg) 2014-11-29 13:17:00 Mem orial [place] BMI Calculated 2014-11-29 13:17:00 Memori al [place] Weight 2014-11-29 13:17:00 [facility] [place] Respitory Rate 2014-07-05 13:04:00 Memori al [place] Diastolic (mm Hg) 2014-07-05 13:04:00 Mem orial [place] Systolic (mm Hg) 2014-07-05 13:04:00 Elio rial [place] BMI Calculated 2014-07-05 13:04:00 Memori al [place] Weight 2014-07-05 13:04:00 [facility] [place] Height 2014-07-05 13:04:00 162.5 cm [facility] [place] Heart Rate 2014-07-05 13:04:00 [facility] [place] Systolic (mm Hg) 2013-06-04 17:31:00 Elio rial [place] Diastolic (mm Hg) 2013-06-04 17:31:00 Mem orial [place] Respitory Rate 2013-06-04 17:31:00 Memori al [place] Temperature Oral (F) 2013-06-04 17:31:00 98.9 F [facility] [place] Heart Rate 2013-06-04 17:31:00 [facility] [place] Diastolic (mm Hg) 2013-06-04 12:18:00 Mem orial [place] Respitory Rate 2013-06-04 12:18:00 Memori al [place] Systolic (mm Hg) 2013-06-04 12:18:00 Elio rial [place] Heart Rate 2013-06-04 12:18:00 [facility] [place] Temperature Oral (F) 2013-06-04 12:18:00 98.7 F [facility] [place] Systolic (mm Hg) 2013-06-04 09:11:00 Elio rial [place] Diastolic (mm Hg) 2013-06-04 09:11:00 Mem orial [place] Respitory Rate 2013-06-04 09:11:00 Memori al [place] Heart Rate 2013-06-04 09:11:00 [facility] [place] Temperature Oral (F) 2013-06-04 09:11:00 98.1 F [facility] [place] Weight 2013-05-31 17:46:00 [facility] [place] Height 2013-05-31 17:46:00 162.56 cm [facility] [place] Height 2013-05-31 17:01:00 162.5 cm [facility] [place] Weight 2013-05-31 17:01:00 [facility] [place] Diastolic (mm Hg) 2013-04-04 20:28:00 Mem orial [place] Systolic (mm Hg) 2013-04-04 20:28:00 Elio rial [place] Heart Rate 2013-04-04 20:28:00 [facility] [place] Weight 2013-04-04 20:28:00 [facility] [place] Height 2013-04-04 20:28:00 162.56 cm [facility] [place] Systolic (mm Hg) 2013-03-28 16:21:00 Elio rial [place] Diastolic (mm Hg) 2013-03-28 16:21:00 Mem orial [place] Temperature Oral (F) 2013-03-28 16:21:00 96.9 F Memorial [place] Height 2013-03-28 16:21:00 162.5 cm [facility] [place] Weight 2013-03-28 16:21:00 [facility] [place] Height 2013-03-09 16:03:00 162.5 cm [facility] [place] Diastolic (mm Hg) 2013-03-09 16:03:00 Mem orial [place] Heart Rate 2013-03-09 16:03:00 [facility] [place] Respitory Rate 2013-03-09 16:03:00 Memori al [place] Systolic (mm Hg) 2013-03-09 16:03:00 Elio rial [place] Temperature Oral (F) 2013-03-09 16:03:00 98.9 F [facility] [place] Weight 2013-03-09 14:44:00 [facility] [place] Height 2013-03-09 14:44:00 165.1 cm [facility] [place] Procedures Procedure Date / Time Performing Clinician Source Performed BI SCREENING MAMMOGRAM 2020-05-21 14:12:14 Shilpa Ferraro [facility] BILATERAL Medical Branch CONSENT/REFUSAL FOR 2020-05-21 13:37:52 Doctor Unassigned, Unive [facility] DIAGNOSIS AND TREATMENT [place] [facility] ASSIGNMENT OF BENEFITS 2020-05-21 13:37:38 [facility] [place] [facility] ASSIGN[facility] OF BENEFITS 2019-11-09 20:07:31 [facility] [place] [facility] Abdominal hysterectomy [facility] [place] Arthroscopy of knee joint Memori al [place] Bilateral tubal ligation Memoria l [place] Colocystoplasty [facility] [place] Removal of kidney from [facility] [place] donor Plan of Care Planned Activity Planned Date Details Comments Source Future Scheduled 2022-06-25 HEPATITIS [facility] VACCIN[facility] Test 08:04:10 (1 of 3 - 3-dose series) [code = HEPATITIS B VACCINES (1 of 3 - 3-dose series)] Future Scheduled 2022-06-25 COVID-19 VACCINE (#1) [facility] Test 08:04:10 [code = COVID-19 VACCINE (#1)] Future Scheduled 2022-06-25 Pneumococcal Vaccine: [facility] Test 08:04:10 Pediatrics (0 to 5 Years) and At-Risk Patients (6 to 64 Years) (1 - PCV) [code = Pneumococcal Vaccine: Pediatrics (0 to 5 Years) and At-Risk Patients (6 to 64 Years) (1 - PCV)] Future Scheduled 2022-06-25 Hepatitis C screening [facility] Test 08:04:10 (procedure) [code = 482746511] Future Scheduled 2022-06-25 Screening for [facility] Test 08:04:10 malignant neoplasm of cervix (procedure) [code = 804574104] Future Scheduled 2022-06-25 BREAST CANCER [facility] Test 08:04:10 SCREENING [code = BREAST CANCER SCREENING] Future Scheduled 2022-06-25 COLONOSCOPY SCREENING [facility] Test 08:04:10 [code = COLONOSCOPY SCREENING] Future Scheduled 2022-06-25 SHINGLES VACCINES (1 Met [facility] Test 08:04:10 of 2) [code = SHINGLES VACCINES (1 of 2)] Future Scheduled 2022-06-25 INFLUENZA VACCINE [facility] Test 08:04:10 [code = INFLUENZA VACCINE] Encounters Start End Encounter Admission Attending Care Care Encounter Source Date/Time Date/Time Type Type Clinicians Facility Department ID 2022-07-26 TH nullFlavo [facility] [id number] Memoria 07:29:53 r Medical 00 l [facility] 2022-07-26 KRYSTIN nullFlavo [facility] [id number] Memoria 07:29:53 r Medical 01 l [facility] 2022-07-26 TB nullFlavo [facility] [id number] Memoria 07:29:53 r Medical 04 l [facility] 2022-07-22 2022-07-22 Outpatient SFA [facility] [id number] [place] 13:17:37 13:17:37 0929 F Sandro 2021-01-13 2021-01-13 Patient LADY Pabon [id number] Univers 00:00:00 00:00:00 Outreach [place] PRIMARY [id number] i ty of [facility] [id number] [facility] [place] [facility] [id number] Co dical [address] [place] [address] 2020-11-14 2020-11-14 Outpatient R [facility] [id number] Univers 08:30:00 08:30:[id number] [facility] 2020-11-14 2020-11-14 Outpatient R [facility] [id number] Univers 08:30:00 [facility]:30:[facility]-13 2020-11-13 Outpatient R [facility] [id number] Univers 09:45:00 09:45:00 [facility] 2020-05-21 2020-05-21 [facility] [id number] 08:38:00 23:59:00 Encounter Shilpa [place] [id number] [place] [id number] [place] [id number] [facility] 2020-05-21 2020-05-21 [facility] [id number] Univers 08:38:00 23:59:00 Encounter Shilpa [place] [id number] ity [facility] [id number] [facility] [place] [facility] [place] [id number] [address] 2020-05-21 2020-05-21 Outpatient [facility] [id number] Univers 09:20:00 09:20:[id number] ity [facility] 2020-05-21 2020-05-21 Outpatient R [facility] [id number] Univers 00:00:00 00:00:[address] [facility] 2020-05-21 2020-05-21 Orders Doctor TREVINO [id number] 00:00:00 00:00:00 Only Unassigned, DAREN [id number] [facility] [id number] [id number] 2020-05-21 2020-05-21 Orders Doctor URIEL [id number] Univers 00:00:00 00:00:00 Only Unassigned, DAREN [id number] ity of [facility] [id number] Matt as [id number] [address] 2020-02-15 2020-02-15 Refill Felisha Roth [facility] [id number] 00:00:00 00:00:00 [place] [id number] [place] [id number] Professio [phone] [address] 2020-02-15 2020-02-15 Refluh Mayra Rothen [place] [id number] Univers 00:00:00 00:00:00 Cam [place] [id number] i ty of [id number] [phone] [address] 2020-02-13 2020-02-13 Refill Mayra Rothen [facility] [id number] Univers 00:00:00 00:00:00 Cam [place] [id number] i [id number] [phone] [address] 2020-02-13 2020-02-13 Refill Gonzalez Felisha [facility] [id number] 00:00:00 00:00:00 Cam [place] [id number] [place] [id number] Professio [phone] [address] 2020-01-08 2020-01-08 Refluh Ferraro [facility] [id number] Univers 00:00:00 00:00:00 Shilpa [place] [id number] i ty of [id number] [phone] [address] 2020-01-08 2020-01-08 Refill [facility] [id number] 00:00:00 00:00:00 Shilpa Huang [id number] [place] [id number] Professio [id number] [address] 2020-01-07 2020-01-07 Telephone [facility] [id number] [facility] 00:00:00 00:00:00 Shilpa Huang [id number] i ty of [id number] [id number] [address] 2020-01-07 2020-01-07 Telephone [facility] [id number] 00:00:00 00:00:00 Shilpa Huang [id number] [place] [id number] Professio [id number] [address] 2019-11-09 2019-11-09 Office [facility] [id number] 14:09:01 16:01:23 Visit Shilpa Huang [id number] [place] [id number] Professio [id number] [address] 2019-11-09 2019-11-09 Office [facility] [id number] [facility] 14:09:01 16:01:23 Visit Shilpa Huang [id number] i ty [id number] [phone] [address] 2019-11-09 2019-11-09 Orders Doctor URIEL [id number] Univers 00:00:00 00:00:00 Only Unassigned, DAREN [id number] ity of [place] [facility] [id number] Matt as [phone] [address] 2019-10-19 2019-10-20 Outpt Diag nullFlavo [facility] [id number] Memoria 18:40:00 05:59:00 Services r Outpatient Varun Jones 2019-10-19 2019-10-19 Outpatient YSABEL SteinbergOIP OIP [id number] 12:40:00 23:59:00 Klarissa 2018-11-21 2018-11-22 Outpatient nullFlavo MNA [id number] Memoria 15:30:00 05:59:59 r Neurosurger 00 [facility] 2018-11-21 2018-11-21 Outpatient Alexei, MHMISCHER MHMISCHER [id number] 09:30:00 23:59:59 Marcio Leigh 2018-11-21 2018-11-21 Outpatient Alexei, MHMISCHER MHMISCHER [id number] 09:30:00 23:59:59 Marcio ClemKaren 2018-11-21 2018-11-21 Outpatient MHIE MHIE [id number] Memoria 09:30:00 09:30:00 00 [facility] 2018-10-18 2018-10-20 Phone nullFlavo MNA [id number] Memoria 17:36:00 05:59:59 Message r Neurosurger 00 [facility] 2018-10-18 2018-10-19 Outpatient MHMISCHER MHMISCHER [id number] 11:36:00 23:59:59 00 2015-05-02 2015-06-01 OP nullFlavo [facility] [id number] Memoria 11:32:00 04:59:00 Post-Trans r [place] 10 l plant [facility]plant [facility] 2015-05-02 2015-05-31 Outpatient Uriel Varner [facility] [id number] 06:32:00 23:59:00 Goran 10 2014-11-29 2014-12-29 OP nullFlavo [facility] [id number] Memoria 12:55:00 05:59:00 Post-Trans r [place] 09 l plant [facility] [place] 2014-11-29 2014-12-28 Outpatient Adrogue, [id number]. [id number]. [id number] 06:55:00 23:59:00 Raul Tavarez [id number] 29 5465-09-12 2014-08-04 [facility] [id number] [facility]oria 12:48:00 04:59:00 Post-Trans r Jaiden 08 [facility] [place] 2014-07-05 2014-08-03 Outpatient Stefania [id number]. [id number]. [id number] 07:48:00 23:59:00 Raul Tavarez [id number] 78 3574-02-14 2014-01-06 OP nullFlavo [facility] [id number] 2_4 Memoria 12:45:00 04:59:00 [place]-Trans [place] [id number] [address] 2013-12-07 2014-01-05 Outpatient Uriel Varner [id number]. [id number]. [id number]. [id number] 06:45:00 23:59:00 [place] [id number] 5.0.132 73 7700-02-14 2013-12-07 [facility] [id number] [facility] 06:45:00 06:45:00 r Medical 07 [facility] [place] [facility] 2013-07-30 2013-08-28 Outpatient [id number]. [id number] [facility] 07:32:00 23:59:00 [id number] l [id number] 5.0.100 Kiran n 00 [facility] 2013-07-30 2013-08-28 TB [facility] [id number] [facility] 07:32:00 23:59:00 r Medical 06 [facility] 2013-06-07 2013-06-07 TP [facility] [id number] [facility] 08:52:00 08:52:00 r Medical 05 [facility] 2013-06-01 2013-06-04 Inpatient [facility] [id number] Memoria 12:15:00 14:16:00 r Medical 02 [facility] 2013-04-23 2013-04-23 TB [facility] [id number] Memoria 09:21:00 16:00:00 r Medical 03 l [facility] 2013-04-04 2013-04-04 Outpatient [facility] [id number] Memoria 14:51:00 14:51:00 r Medical 00 l [facility] 2013-03-22 2013-03-22 TB [facility] [id number] Memoria 12:17:00 12:17:00 r Medical 02 l [facility] 2013-03-09 2013-03-09 TB [facility] [id number] Memoria 06:58:00 06:58:00 r Medical 01 [facility] Results Test Description Test Time Test Comments Results Result Sourc e Comments CULTURE, URINE SPECIMEN NUMBER: [id number] CULTURE, 09:53:13 URINE SPECIMEN NUMBER: [id number] SOURCE: URINE REPORT STATUS: FINAL FINAL REPORT: 07/24/2022 NO GROWTH AFTER 36 HOURS INCUBATION UNLESS OTHERWISE INDICATED, ALL TESTING [facility] [address] [place] [address] INPATIENT AUDITOR: OLYA ZAMORANO M.D. CLIA NUMBER [id number] [place] [id number] BI SCREENING 2020-04-24 Examination:[facility] MAMMOGRAM 9 SCREENING MAMMOGRAM [facility] BILATERAL 14:43:17 BILATERAL Branch History:Patient is 60 year old and is seen for: ?59 y/o female for annual screening mammogram. sister with a history of breast cancer. thanks!. Computer-aided detection (CAD) utilized. Comparisons: 11/15/2018 BI SCREENING MAMMOGRAM BILATERAL (No Change) and 06/24/2016 DIGITAL MAMMOGRAM, SCREENING Findings:The breasts have scattered areas of fibroglandular density. BilateralThere are vascular calcifications seen in both breasts. Impression:No signs of malignancy. Recommendation:Stephanie al mammographic follow-up - Bilateral BI-RADS Category: Both 2 - Benign CHEM PANEL 2013-12-07 12:50:00 Test Item Value Reference Range Interpretation Comme nts AGAP (test code = AGAP) 11.4 10.0-20.0 [facility]FxvqpgpYRHCXIFKNR1511-22-12 12:50:00 Test Item Value Reference Range Interpretation Comments Basophils (test code = 1.0 See_Comment [Aut omated message] The Basophils) system which ge nerated this result tra nsmitted reference range : <=1.0. The reference r giorgio was not used to int erpret this result as normal/abnormal . [facility] CenterEfgmqrhZWKLUNHTDP4793-86-42 12:50:00 Test Item Value Reference Range Interpretation Comments Segs-Bands # (test code = Segs-Bands #) 3.1 1.5-8.1 [facility] CenterPrrkjjsAKFHQEKHDX3022-10-95 12:50:00 Test Item Value Reference Range Interpretation Comments Eosinophils (test code = 5.4 See_Comment [A utomated message] The Eosinophils) system which ge nerated this result tra nsmitted reference range : <=4.0. The reference r giorgio was not used to int erpret this result as normal/abnormal . [facility] CenterNfjzljiKIXPOTMSLV9379-87-25 12:50:00 Test Item Value Reference Range Interpretation Comments Lymphocytes # (test code = Lymphocytes 1.2 1.0-5.5 #) [facility] CenterIirrvrnGABITKEWZY1537-65-96 12:50:00 Test Item Value Reference Range Interpretation Comments Monocytes # (test code 0.4 See_Comment [Aut omated message] The = Monocytes #) system which generated this result tra nsmitted reference range : <=0.8. The reference r giorgio was not used to int erpret this result as normal/abnormal . [facility] CenterFtnwzcqILCEZCOIOI4637-23-89 12:50:00 Test Item Value Reference Range Interpretation Comments Eosinophils # (test code 0.3 See_Comment [A utomated message] The = Eosinophils #) system whic h generated this result tra nsmitted reference range : <=0.5. The reference r giorgio was not used to int erpret this result as normal/abnormal . [facility] CenterLvduceuQIJYCIVTFA6136-70-61 12:50:00 Test Item Value Reference Range Interpretation Comments Basophils # (test code 0.1 See_Comment [Aut omated message] The = Basophils #) system which generated this result tra nsmitted reference range : <=0.2. The reference r giorgio was not used to int erpret this result as normal/abnormal . [facility] CenterCargsvkBXZWYJQKEO3926-06-50 12:50:00 Test Item Value Reference Range Interpretation Comments Lymphocytes (test code = Lymphocytes) 24.6 20.0-40.0 [facility] CenterPhvgjssWVVRDMLRBL0793-95-96 12:50:00 Test Item Value Reference Range Interpretation Comments Segs (test code = Segs) 60.7 45.0-75.0 [facility]ZrlefrbBZVTZQLDHK7277-52-15 12:50:00 Test Item Value Reference Range Interpretation Comments Monocytes (test code = Monocytes) 8.3 2.0-12.0 [facility] CenterNhhluspPMXJQBAEGO0140-95-53 12:50:00 Test Item Value Reference Range Interpretation Comments Platelet (test code = Platelet) 202 133-450 [facility] CenterYejldqiWONMVBZRTY4571-85-26 12:50:00 Test Item Value Reference Range Interpretation Comments MPV (test code = MPV) 9.3 7.4-10.4 [facility] CenterLtjjjloVOCHJZEXTI7904-92-69 12:50:00 Test Item Value Reference Range Interpretation Comments RDW (test code = RDW) 12.9 11.5-14.5 [facility] CenterUfnzhfdDXGDXMYOGZ0624-79-81 12:50:00 Test Item Value Reference Range Interpretation Comments Hct (test code = Hct) 38.0 36.0-48.0 [facility] CenterUxqslmpXZTOONLSOO6957-65-22 12:50:00 Test Item Value Reference Range Interpretation Comments WBC X 10x3 (test code = WBC X 10x3) 5.1 3.7-10.4 [facility] CenterFyhfhlsKQAMAJPNZR1511-54-50 12:50:00 Test Item Value Reference Range Interpretation Comments RBC X 10x6 (test code = RBC X 10x6) 4.18 4.20-5.40 [facility] CenterWssomomSYJHRVKJIN6276-68-02 12:50:00 Test Item Value Reference Range Interpretation Comments Hgb (test code = Hgb) 13.2 12.0-16.0 [facility] CenterKosaunyTVNSEGHLIK8137-96-83 12:50:00 Test Item Value Reference Range Interpretation Comments MCV (test code = MCV) 90.9 81.0-99.0 [facility] CenterXtrjphbMGLFBHGMXK6303-83-50 12:50:00 Test Item Value Reference Range Interpretation Comments MCH (test code = MCH) 31.6 pg 27.0-31.0 [facility] CenterVzavomnEWQCLIZHHX7314-63-22 12:50:00 Test Item Value Reference Range Interpretation Comments MCHC (test code = MCHC) 34.8 32.0-36.0 [facility]2014-02-14 12:50:00 Test Item Value Reference Range Interpretation Comments UA Urobilinogen (test code = UA <=1.0 mg/dL 0.1-1.0 Urobilinogen) [facility] [id number] 12:50:00 Test Item Value Reference Range Interpretation Comments UA Leuk Est (test Negative (12/07/2013 code = UA Leuk Est) 06:50:00 [place]) [facility] [id number] 12:50:00 Test Item Value Reference Range Interpretation Comments UA Sq Epi (test code = UA Sq Occasional /LPF Epi) [facility] [id number] 12:50:00 Test Item Value Reference Range Interpretation Comments UA WBC (test code = no gt See_Comment [Automa anderson message] The UA WBC) system which ge nerated this result transmit anderson reference range : <=5. The reference range was not used to interpr et this result as aakash l/abnormal. [facility] [id number] 12:50:00 Test Item Value Reference Range Interpretation Comments UA Blood (test code = Trace *ABN*(12/07/2013 UA Blood) 06:50:00 [place]) [facility] [id number] 12:50:00 Test Item Value Reference Range Interpretation Comments UA Nitrite (test code Negative (12/07/2013 = UA Nitrite) 06:50:00 [place]) [facility] [id number] 12:50:00 Test Item Value Reference Range Interpretation Comments UA RBC (test code = 1 See_Comment [Automa anderson message] The UA RBC) system which ge nerated this result transmit anderson reference range : <=2. The reference range was not used to interpr et this result as aakash l/abnormal. [facility] TTHME2812-11-50 12:50:00 Test Item Value Reference Range Interpretation Comments UA Mucus (test code = UA Mucus) Few /LPF [facility] [id number] 12:50:00 Test Item Value Reference Range Interpretation Comments UA Turbidity (test code = Clear (12/07/2013 UA Turbidity) 06:50:00 [place]) [facility] [id number] 12:50:00 Test Item Value Reference Range Interpretation Comments UA Color (test code = Yellow *NA*(12/07/2013 UA Color) 06:50:00 [place]) [facility] [id number] 12:50:00 Test Item Value Reference Range Interpretation Comments UA Spec Grav (test code = UA Spec Grav) 1.020 [facility] [id number] 12:50:00 Test Item Value Reference Range Interpretation Comments UA Bili (test code = Negative *NA*(12/07/2013 UA Bili) 06:50:00 [place]) [facility] [id number] 12:50:00 Test Item Value Reference Range Interpretation Comments UA Ketones (test code = UA Negative mg/dL Ketones) [facility] [id number] 12:50:00 Test Item Value Reference Range Interpretation Comments UA Glucose (test code = UA Negative mg/dL Glucose) [facility] [id number] 12:50:00 Test Item Value Reference Range Interpretation Comments UA Protein (test code = UA Negative mg/dL Protein) [facility] [id number] 12:50:00 Test Item Value Reference Range Interpretation Comments UA pH (test code = UA pH) 5.5 5.0-8.0 [facility]2014-02-14 12:50:00 Test Item Value Reference Range Interpretation Comments U Prot/Creat (test code = U Prot/Creat) 0.1 [facility]2014-02-14 12:50:00 Test Item Value Reference Range Interpretation Comments U Microalb (test code = U Microalb) no gt [facility]2014-02-14 12:50:00 Test Item Value Reference Range Interpretation Comments U Protein (test code = U Protein) 18.1 [facility]2014-02-14 12:50:00 Test Item Value Reference Range Interpretation Comments U Creatinine (test code = U Creatinine) 176.9 [facility]2014-02-14 12:50:00 Test Item Value Reference Range Interpretation Comments eGFR (test code = eGFR) 52 [facility]2014-02-14 12:50:00 Test Item Value Reference Range Interpretation Comments Creatinine Lvl (test code = Creatinine 1.2 0.5-1.4 Lvl) [facility]2014-02-14 12:50:00 Test Item Value Reference Range Interpretation Comments Sodium Lvl (test code = Sodium Lvl) 141 135-145 [facility]2014-02-14 12:50:00 Test Item Value Reference Range Interpretation Comments Potassium Lvl (test code = Potassium 4.4 3.5-5.1 Lvl) [facility]2014-02-14 12:50:00 Test Item Value Reference Range Interpretation Comments Glucose Lvl (test code = Glucose Lvl) 79 70-99 [facility]2014-02-14 12:50:00 Test Item Value Reference Range Interpretation Comments BUN (test code = BUN) 23 7-22 [facility]2014-02-14 12:50:00 Test Item Value Reference Range Interpretation Comments CO2 (test code = CO2) 28 24-32 [facility]2014-02-14 12:50:00 Test Item Value Reference Range Interpretation Comments Chloride Lvl (test code = Chloride Lvl) 106 95-109 [facility]2014-02-14 12:50:00 Test Item Value Reference Range Interpretation Comments Calcium Lvl (test code = Calcium Lvl) 8.6 8.5-10.5 [facility]XkozzbgDPMWXYEHL0013-24-61 12:55:00 Test Item Value Reference Range Interpretation Comments U Creatinine (test code = U Creatinine) 91.2 [facility] TylerNcptmypQLUKYLOAX0110-07-21 12:55:00 Test Item Value Reference Range Interpretation Comments U Microalb (test code = U Microalb) no gt [facility] TylerIjkzfwhPIJHUCVKR8374-66-08 12:55:00 Test Item Value Reference Range Interpretation Comments U Alb/Crea (test code = U Alb/Crea) no gt N [facility] TylerBxspeqqVTLDHWYYM5784-85-28 12:55:00 Test Item Value Reference Range Interpretation Comments U Microalb (test code = U Microalb) no gt [facility] TylerDpgstjfTQSZSHTLK4448-18-96 12:55:00 Test Item Value Reference Range Interpretation Comments U Protein (test code = U Protein) 13.1 [facility] TylerDodbiitVZJDWHLYF7112-16-50 12:55:00 Test Item Value Reference Range Interpretation Comments AGAP (test code = AGAP) 15.5 10.0-20.0 N [facility] TylerEnzwysqUUSRRJQWI6473-48-32 12:55:00 Test Item Value Reference Range Interpretation Comments eGFR (test code = eGFR) 58 [facility] TylerAvqnrupXQQIRQUHS5609-87-89 12:55:00 Test Item Value Reference Range Interpretation Comments Calcium Lvl (test code = Calcium Lvl) 8.2 8.5-10.5 L [facility] TylerPshmmvnDPYBBUXXP7310-97-12 12:55:00 Test Item Value Reference Range Interpretation Comments CO2 (test code = CO2) 27 24-32 N [facility] TylerCmllnewBYOLONDIP0689-02-22 12:55:00 Test Item Value Reference Range Interpretation Comments Chloride Lvl (test code = Chloride Lvl) 105 95-109 N [facility] TylerXdfkkfnIMZBGZUJX8444-47-36 12:55:00 Test Item Value Reference Range Interpretation Comments Potassium Lvl (test code = Potassium 4.5 3.5-5.1 N Lvl) [facility] TylerWkpyoirATFGBDGXK8332-00-14 12:55:00 Test Item Value Reference Range Interpretation Comments Glucose Lvl (test code = Glucose Lvl) 68 70-99 L [facility] TylerDqpmjezOPRERBSRY9824-84-53 12:55:00 Test Item Value Reference Range Interpretation Comments Creatinine Lvl (test code = Creatinine 1.1 0.5-1.4 N Lvl) [facility] TylerUgfjwitEAARGMIOW2792-86-18 12:55:00 Test Item Value Reference Range Interpretation Comments BUN (test code = BUN) 18 7-22 N [facility] TylerVzvydpxSGNSLLTHH4741-46-39 12:55:00 Test Item Value Reference Range Interpretation Comments Sodium Lvl (test code = Sodium Lvl) 143 135-145 N [facility] CenterFrafzzrZSZLCNHIEC8965-54-85 12:55:00 Test Item Value Reference Range Interpretation Comments Eosinophils # (test code 0.3 See_Comment N [A utomated message] The = Eosinophils #) system whic h generated this result tra nsmitted reference range : <=0.5. The reference r giorgio was not used to int erpret this result as normal/abnormal . [facility] CenterMdignpmXLVMWQWEBO6277-24-81 12:55:00 Test Item Value Reference Range Interpretation Comments Segs-Bands # (test code = Segs-Bands #) 2.7 1.5-8.1 N [facility] CenterAgundmiFIKORWSHOA9430-62-55 12:55:00 Test Item Value Reference Range Interpretation Comments Monocytes # (test code 0.4 See_Comment N [Aut omated message] The = Monocytes #) system which generated this result tra nsmitted reference range : <=0.8. The reference r giorgio was not used to int erpret this result as normal/abnormal . [facility] CenterWnchtiuNFAJJUYNGZ4953-93-68 12:55:00 Test Item Value Reference Range Interpretation Comments Lymphocytes # (test code = Lymphocytes 0.9 1.0-5.5 L #) [facility] CenterJdellopCTCQJYXZPT2532-53-93 12:55:00 Test Item Value Reference Range Interpretation Comments Monocytes (test code = Monocytes) 10.1 2.0-12.0 N [facility] CenterWmsbhwsLKBSOKTWBG0524-95-82 12:55:00 Test Item Value Reference Range Interpretation Comments Basophils (test code = 0.9 See_Comment N [Aut omated message] The Basophils) system which ge nerated this result tra nsmitted reference range : <=1.0. The reference r giorgio was not used to int erpret this result as normal/abnormal . [facility] CenterUrszeouBWHLDREDKY3537-68-27 12:55:00 Test Item Value Reference Range Interpretation Comments Eosinophils (test code = 5.9 See_Comment H [A utomated message] The Eosinophils) system which ge nerated this result tra nsmitted reference range : <=4.0. The reference r giorgio was not used to int erpret this result as normal/abnormal . [facility] CenterExygnscMWUHFKECDJ3739-15-85 12:55:00 Test Item Value Reference Range Interpretation Comments Segs (test code = Segs) 61.5 45.0-75.0 N [facility] CenterVntbxafFZSDDIYEZX2165-09-63 12:55:00 Test Item Value Reference Range Interpretation Comments Lymphocytes (test code = Lymphocytes) 21.6 20.0-40.0 N [facility] CenterXomxjntKKWQNRKFXT9046-86-63 12:55:00 Test Item Value Reference Range Interpretation Comments RDW (test code = RDW) 14.1 11.5-14.5 N [facility] CenterKxbrpyfCPYTGYJKGH6240-14-81 12:55:00 Test Item Value Reference Range Interpretation Comments MPV (test code = MPV) 9.9 7.4-10.4 N [facility] CenterYrootlcMBJLUPKNQM2830-87-08 12:55:00 Test Item Value Reference Range Interpretation Comments Platelet (test code = Platelet) 178 133-450 N [facility] CenterBeyvpkfKWDLEYJGSR2585-93-73 12:55:00 Test Item Value Reference Range Interpretation Comments Hgb (test code = Hgb) 12.8 12.0-16.0 N [facility] CenterDwkmgdySJBPLYIDFO4848-80-43 12:55:00 Test Item Value Reference Range Interpretation Comments MCV (test code = MCV) 88.8 81.0-99.0 N [facility] CenterMvblxokKCQAHYNCVW9611-80-08 12:55:00 Test Item Value Reference Range Interpretation Comments Hct (test code = Hct) 37.6 36.0-48.0 N [facility] CenterBoybyxhPENIMPRJAB8611-20-39 12:55:00 Test Item Value Reference Range Interpretation Comments MCH (test code = MCH) 30.1 pg 27.0-31.0 N [facility] CenterQfwzaamTDIADLCIHW8556-03-58 12:55:00 Test Item Value Reference Range Interpretation Comments MCHC (test code = MCHC) 33.9 32.0-36.0 N [facility] CenterQpvvcgyCSUOYJLDYY8168-75-36 12:55:00 Test Item Value Reference Range Interpretation Comments WBC X 10x3 (test code = WBC X 10x3) 4.3 3.7-10.4 N [facility] CenterFfyftaiCSPPXMTZXT1183-52-76 12:55:00 Test Item Value Reference Range Interpretation Comments RBC X 10x6 (test code = RBC X 10x6) 4.24 4.20-5.40 N [facility] TomballRvfaqkeWXYMEOSAJD3519-91-98 12:55:00 Test Item Value Reference Range Interpretation Comments UA Urobilinogen (test code = UA <=1.0 mg/dL 0.1-1.0 Urobilinogen) [facility] TomballBxggamgEJUIZGFJDW5731-43-35 12:55:00 Test Item Value Reference Range Interpretation Comments UA Sq Epi (test code = UA Sq Epi) None Seen [facility] TomballGjwcezpMSNNIZHHME9545-55-33 12:55:00 Test Item Value Reference Range Interpretation Comments UA RBC (test code = no gt See_Comment N [Automa anderson message] The UA RBC) system which ge nerated this result transmit anderson reference range : <=2. The reference range was not used to interpr et this result as aakash l/abnormal. [facility] TomballOgobbkbOLPLWYDMPT0075-63-52 12:55:00 Test Item Value Reference Range Interpretation Comments UA Mucus (test code = UA Mucus) Few /LPF [facility] TomballIpmazajYPMVYFABVH3516-18-63 12:55:00 Test Item Value Reference Range Interpretation Comments UA Nitrite (test code Negative (07/30/2013 N = UA Nitrite) 07:55:00) [facility] TomballKsvjgrhZYZAPMNORR3044-43-81 12:55:00 Test Item Value Reference Range Interpretation Comments UA WBC (test code = no gt See_Comment N [Automa anderson message] The UA WBC) system which ge nerated this result transmit anderson reference range : <=5. The reference range was not used to interpr et this result as aakash l/abnormal. [facility] TomballXxjpebdUMYORLFDCF2386-92-77 12:55:00 Test Item Value Reference Range Interpretation Comments UA Leuk Est (test Negative (07/30/2013 N code = UA Leuk Est) 07:55:00) [facility] TomballNqtyjnkJIZEJJYQXU6160-32-49 12:55:00 Test Item Value Reference Range Interpretation Comments UA Glucose (test code = UA Negative mg/dL Glucose) [facility] TomballIobdikjUURUUICRPB4452-90-50 12:55:00 Test Item Value Reference Range Interpretation Comments UA Blood (test code = Trace *ABN*(07/30/2013 A UA Blood) 07:55:00) [facility] TomballXyunzwfQSABMQQJUH9881-34-65 12:55:00 Test Item Value Reference Range Interpretation Comments UA Bili (test code = Negative *NA*(07/30/2013 UA Bili) 07:55:00) [facility] TomballEjqfqvrJQMFGSQZZP2932-83-71 12:55:00 Test Item Value Reference Range Interpretation Comments UA Ketones (test code = UA Negative mg/dL Ketones) [facility] TomballCeyicyjHMRDFTSYIL7965-60-38 12:55:00 Test Item Value Reference Range Interpretation Comments UA Spec Grav (test code = UA Spec Grav) 1.013 N [facility] TomballGbgqkxhFDIEDVKDGU7280-88-79 12:55:00 Test Item Value Reference Range Interpretation Comments UA Turbidity (test code = Clear (07/30/2013 N UA Turbidity) 07:55:00) [facility] TomballVaivuxkCANIMECDHZ4078-82-13 12:55:00 Test Item Value Reference Range Interpretation Comments UA Protein (test code = UA Negative mg/dL N Protein) [facility]QiipikqJKWLUFTRPK2637-67-70 12:55:00 Test Item Value Reference Range Interpretation Comments UA pH (test code = UA pH) 5.0 5.0-8.0 N [facility]EhocjpyJDBLYECOTJ5355-35-60 12:55:00 Test Item Value Reference Range Interpretation Comments UA Color (test code = Light Yellow UA Color) *NA*(07/30/2013 07:55:00) [facility] CenterEwauhlyGqlbkrnhjbnu5359-94-62 16:58:00 Test Item Value Reference Range Interpretation Comments Culture: Urine (test code = Culture: Urine) [facility] TylerHgeedxcSTMFGDOOB8721-56-53 12:00:00 Test Item Value Reference Range Interpretation Comments U Alb/Crea (test code = U Alb/Crea) no gt N [facility] TylerJmagkgjMYSEZKRCB0620-01-15 12:00:00 Test Item Value Reference Range Interpretation Comments U Microalb (test code = U Microalb) no gt [facility] TylerBvezjacVSGLMAQMT9422-73-34 12:00:00 Test Item Value Reference Range Interpretation Comments U Creatinine (test code = U Creatinine) 160.7 [facility] TylerHkkvziuUGWYNEJYK5131-60-97 12:00:00 Test Item Value Reference Range Interpretation Comments U Microalb (test code = U Microalb) no gt [facility] TylerPgsajtvNWSMHXFZY3201-25-91 12:00:00 Test Item Value Reference Range Interpretation Comments U Protein (test code = U Protein) 18.3 [facility] TylerOdgtjwxYLTKRPGPI3808-14-27 12:00:00 Test Item Value Reference Range Interpretation Comments AGAP (test code = AGAP) 14.2 10.0-20.0 N [facility] TylerGpjewxzOFJCKNRZE1497-42-04 12:00:00 Test Item Value Reference Range Interpretation Comments eGFR (test code = eGFR) 44 [facility] TylerXkgpecdYJIIGDTPB0131-82-16 12:00:00 Test Item Value Reference Range Interpretation Comments Calcium Lvl (test code = Calcium Lvl) 9.0 8.5-10.5 N [facility] TylerVukjqoiAKMQEXOBH0596-94-30 12:00:00 Test Item Value Reference Range Interpretation Comments Chloride Lvl (test code = Chloride Lvl) 104 95-109 N [facility] TylerZryzpuhPCMHGDTQS8939-05-93 12:00:00 Test Item Value Reference Range Interpretation Comments CO2 (test code = CO2) 26 24-32 N [facility] TylerOormlzhIHKHOVUBG1224-47-61 12:00:00 Test Item Value Reference Range Interpretation Comments BUN (test code = BUN) 21 7-22 N [facility] TylerXvpddfnEOWQMMZED5187-00-16 12:00:00 Test Item Value Reference Range Interpretation Comments Creatinine Lvl (test code = Creatinine 1.4 0.5-1.4 N Lvl) [facility] TylerGiqaywcLZYKSPUED0069-87-41 12:00:00 Test Item Value Reference Range Interpretation Comments Sodium Lvl (test code = Sodium Lvl) 140 135-145 N [facility] TylerCztlrlhGSGBHZNHH8422-75-61 12:00:00 Test Item Value Reference Range Interpretation Comments Potassium Lvl (test code = Potassium 4.2 3.5-5.1 N Lvl) [facility] TylerSskpvaaQGFVGERCX7403-55-13 12:00:00 Test Item Value Reference Range Interpretation Comments Glucose Lvl (test code = Glucose Lvl) 78 70-99 N [facility] CenterOacxkoqEKIHZCSKPZ5353-00-95 12:00:00 Test Item Value Reference Range Interpretation Comments Lymphocytes # (test code = Lymphocytes 1.2 1.0-5.5 N #) [facility] CenterGampobyIQWTUAHDCT7826-93-63 12:00:00 Test Item Value Reference Range Interpretation Comments Eosinophils # (test code 0.3 See_Comment N [A utomated message] The = Eosinophils #) system whic h generated this result tra nsmitted reference range : <=0.5. The reference r giorgio was not used to int erpret this result as normal/abnormal . [facility] CenterAhjsmngXTGGDIRBXJ7863-64-95 12:00:00 Test Item Value Reference Range Interpretation Comments Monocytes # (test code 0.4 See_Comment N [Aut omated message] The = Monocytes #) system which generated this result tra nsmitted reference range : <=0.8. The reference r giorgio was not used to int erpret this result as normal/abnormal . [facility] CenterRdyycozJGCDBAFSFL8594-23-42 12:00:00 Test Item Value Reference Range Interpretation Comments Lymphocytes (test code = Lymphocytes) 21.7 20.0-40.0 N [facility] CenterCttfwnoVODLSSBCSX6646-62-92 12:00:00 Test Item Value Reference Range Interpretation Comments Eosinophils (test code = 4.9 See_Comment H [A utomated message] The Eosinophils) system which ge nerated this result tra nsmitted reference range : <=4.0. The reference r giorgio was not used to int erpret this result as normal/abnormal . [facility] CenterQhnddxmYERVLACGXK1761-26-67 12:00:00 Test Item Value Reference Range Interpretation Comments Monocytes (test code = Monocytes) 6.4 2.0-12.0 N [facility] CenterYnqaessPRSKIOJUXY6135-18-88 12:00:00 Test Item Value Reference Range Interpretation Comments Basophils (test code = 0.7 See_Comment N [Aut omated message] The Basophils) system which ge nerated this result tra nsmitted reference range : <=1.0. The reference r giorgio was not used to int erpret this result as normal/abnormal . [facility] CenterLzptsmrSKBEGVLCVX8832-69-61 12:00:00 Test Item Value Reference Range Interpretation Comments Segs-Bands # (test code = Segs-Bands #) 3.7 1.5-8.1 N [facility] CenterVbgfakgAFATZPLWBW2234-60-80 12:00:00 Test Item Value Reference Range Interpretation Comments Segs (test code = Segs) 66.3 45.0-75.0 N [facility] CenterFcpgwufPLZMKYYNGB9375-72-41 12:00:00 Test Item Value Reference Range Interpretation Comments MPV (test code = MPV) 9.1 7.4-10.4 N [facility] CenterVvzskytZQZCKSRINE5004-23-40 12:00:00 Test Item Value Reference Range Interpretation Comments MCHC (test code = MCHC) 33.0 32.0-36.0 N [facility] CenterZgnordhNZRCIMVBYO6676-39-07 12:00:00 Test Item Value Reference Range Interpretation Comments MCH (test code = MCH) 29.4 pg 27.0-31.0 N [facility] CenterLdlotbiBIPGEQBKZN7671-07-13 12:00:00 Test Item Value Reference Range Interpretation Comments RDW (test code = RDW) 12.5 11.5-14.5 N [facility] CenterFrevuzxDRWWPKGGDO1375-43-89 12:00:00 Test Item Value Reference Range Interpretation Comments Platelet (test code = Platelet) 225 133-450 N [facility] CenterCjmwgieMVJQHJPLRD1563-15-44 12:00:00 Test Item Value Reference Range Interpretation Comments Hgb (test code = Hgb) 12.1 12.0-16.0 N [facility] CenterDmypjyaBKIIJHGIKB4911-94-71 12:00:00 Test Item Value Reference Range Interpretation Comments Hct (test code = Hct) 36.8 36.0-48.0 N [facility] CenterUomicazIUZPVEGJOR5069-35-04 12:00:00 Test Item Value Reference Range Interpretation Comments RBC (test code = RBC) 4.12 4.20-5.40 L [facility] CenterRenjgxeUMRNNCKITU6289-04-29 12:00:00 Test Item Value Reference Range Interpretation Comments MCV (test code = MCV) 89.2 81.0-99.0 N [facility] CenterCrujpftYFLVCZXLIB1209-87-82 12:00:00 Test Item Value Reference Range Interpretation Comments WBC (test code = WBC) 5.5 3.7-10.4 N [facility]ballRmqkkkkJGXEGATAXS0410-55-92 12:00:00 Test Item Value Reference Range Interpretation Comments UA Mucus (test code = Few /LPF UA Mucus) *NA*(07/02/2013 07:00:00) [facility] TomballJkogarfJTSKKPVGTW9192-42-74 12:00:00 Test Item Value Reference Range Interpretation Comments UA Urobilinogen (test code *NA*(07/02/2013 0.1-1.0 = UA Urobilinogen) 07:00:00) [facility] TomballBabfsoxUNYBAUPAXF5310-17-48 12:00:00 Test Item Value Reference Range Interpretation Comments UA Nitrite (test code Negative (07/02/2013 N = UA Nitrite) 07:00:00) [facility] TomballJljokddIVGFUFCBJU7723-95-72 12:00:00 Test Item Value Reference Range Interpretation Comments UA Leuk Est (test Negative (07/02/2013 N code = UA Leuk Est) 07:00:00) [facility] TomballCmqwsfhVCYLCHKQIS3034-02-35 12:00:00 Test Item Value Reference Range Interpretation Comments UA Sq Epi (test code Occasional /LPF = UA Sq Epi) *NA*(07/02/2013 07:00:00) [facility] TomballZipddqdDBAVNXCUUY3033-46-94 12:00:00 Test Item Value Reference Range Interpretation Comments UA Color (test code = Yellow *NA*(07/02/2013 UA Color) 07:00:00) [facility] TomballNnhfugfNSHRXGMDAF7978-86-01 12:00:00 Test Item Value Reference Range Interpretation Comments UA Turbidity (test code = Clear (07/02/2013 N UA Turbidity) 07:00:00) [facility] TomballIjdlnazYYFFMEXADL6603-88-29 12:00:00 Test Item Value Reference Range Interpretation Comments UA Spec Grav (test code = UA Spec Grav) 1.017 N [facility] TomballTuzilrcFCMYYRVONR9478-41-26 12:00:00 Test Item Value Reference Range Interpretation Comments UA Ketones (test code Negative mg/dL = UA Ketones) *NA*(07/02/2013 07:00:00) [facility] TomballQccxctvQSAXXLDMCB2800-82-42 12:00:00 Test Item Value Reference Range Interpretation Comments UA WBC (test code = no gt See_Comment N [Automa anderson message] The UA WBC) system which ge nerated this result transmit anderson reference range : <=5. The reference range was not used to interpr et this result as aakash l/abnormal. [facility] TomballTyozhrnHVWRPBPHAT5849-70-76 12:00:00 Test Item Value Reference Range Interpretation Comments UA RBC (test code = no gt See_Comment N [Automa anderson message] The UA RBC) system which ge nerated this result transmit anderson reference range : <=2. The reference range was not used to interpr et this result as aakash l/abnormal. [facility] TomballXvhsswwMQCSXKEUHQ6280-05-39 12:00:00 Test Item Value Reference Range Interpretation Comments UA pH (test code = UA pH) 5.0 5.0-8.0 N [facility] TomballGifytmpTXFRORHOIR5901-15-15 12:00:00 Test Item Value Reference Range Interpretation Comments UA Protein (test code Negative mg/dL N = UA Protein) (07/02/2013 07:00:00) [facility] TomballXscxdxmHMSUGKUZSR4526-47-14 12:00:00 Test Item Value Reference Range Interpretation Comments UA Glucose (test code Negative mg/dL = UA Glucose) *NA*(07/02/2013 07:00:00) [facility] TomballCnojwwdUOXNGANHYR9188-34-97 12:00:00 Test Item Value Reference Range Interpretation Comments UA Bili (test code = Negative *NA*(07/02/2013 UA Bili) 07:00:00) [facility] TomballXdxstlpBNDYMUSSOE0739-88-16 12:00:00 Test Item Value Reference Range Interpretation Comments UA Blood (test code = Trace *ABN*(07/02/2013 A UA Blood) 07:00:00) [facility] TylerQcxtdmuLKGQNWTBB0027-52-67 13:50:00 Test Item Value Reference Range Interpretation Comments U Prot/Creat (test code = U Prot/Creat) 0.2 [facility] TylerNfcjawwFGBJNPHHJ1689-40-05 13:50:00 Test Item Value Reference Range Interpretation Comments Calcium Lvl (test code = Calcium Lvl) 9.3 8.5-10.5 N [facility] TylerFymgvjrJBPYUAHVF3060-59-66 13:50:00 Test Item Value Reference Range Interpretation Comments CO2 (test code = CO2) 33 24-32 H [facility] TylerEysggkfAZGAXLLRO1833-86-63 13:50:00 Test Item Value Reference Range Interpretation Comments Potassium Lvl (test code = Potassium 4.4 3.5-5.1 N Lvl) [facility] TylerBzuyrxhJUZJIHHTE7436-60-16 13:50:00 Test Item Value Reference Range Interpretation Comments Sodium Lvl (test code = Sodium Lvl) 140 135-145 N [facility] TylerJuymjuuJHSLYKEFD6321-39-85 13:50:00 Test Item Value Reference Range Interpretation Comments Creatinine Lvl (test code = Creatinine 1.2 0.5-1.4 N Lvl) [facility] TylerDecwhczGDUIDEYUE9403-25-53 13:50:00 Test Item Value Reference Range Interpretation Comments BUN (test code = BUN) 21 7-22 N [facility] TylerIhpnzoeIIMHEDCVD5772-66-39 13:50:00 Test Item Value Reference Range Interpretation Comments Chloride Lvl (test code = Chloride Lvl) 101 95-109 N [facility] TylerSauqvfcHIODZKPFH4021-51-68 13:50:00 Test Item Value Reference Range Interpretation Comments Glucose Lvl (test code = Glucose Lvl) 91 70-99 N [facility] TylerNkjpqjkJTIXFYPYD5930-83-29 13:50:00 Test Item Value Reference Range Interpretation Comments eGFR (test code = eGFR) 52 [facility] TylerLqbvpkiXXVXRTMJH4160-95-81 13:50:00 Test Item Value Reference Range Interpretation Comments AGAP (test code = AGAP) 10.4 10.0-20.0 N [facility] TylerYykalojMQJAPCDLE0731-58-51 13:50:00 Test Item Value Reference Range Interpretation Comments U Creatinine (test code = U Creatinine) 265.8 [facility] TylerXercsvoDBQURWEDT6938-83-73 13:50:00 Test Item Value Reference Range Interpretation Comments U Protein (test code = U Protein) 63.1 [facility] TylerAgrigxaVXKNXEQKP1987-04-75 13:50:00 Test Item Value Reference Range Interpretation Comments U Microalb (test code = U Microalb) 7.3 [facility] CenterAlntvzeYVFLZNJSMZ9554-47-69 13:50:00 Test Item Value Reference Range Interpretation Comments MPV (test code = MPV) 9.0 7.4-10.4 N [facility] CenterCbtppqtIWMAQIWKRM4388-40-83 13:50:00 Test Item Value Reference Range Interpretation Comments Platelet (test code = Platelet) 321 133-450 N [facility] CenterDapoovqZELMIINARW8259-60-19 13:50:00 Test Item Value Reference Range Interpretation Comments RDW (test code = RDW) 12.3 11.5-14.5 N [facility] CenterQcdxfrqUGDEDCYVXZ9749-45-33 13:50:00 Test Item Value Reference Range Interpretation Comments MCH (test code = MCH) 30.9 pg 27.0-31.0 N [facility] CenterInrbbjnMFFQNTZNSL1612-62-62 13:50:00 Test Item Value Reference Range Interpretation Comments MCHC (test code = MCHC) 33.6 32.0-36.0 N [facility] CenterNotbcdhXFCEWIXYYZ3549-65-76 13:50:00 Test Item Value Reference Range Interpretation Comments WBC (test code = WBC) 6.4 3.7-10.4 N [facility] CenterBemvomuNZKXWSKALJ9414-30-63 13:50:00 Test Item Value Reference Range Interpretation Comments Hgb (test code = Hgb) 10.9 12.0-16.0 L [facility] CenterXsattjcYHHCRBRZYT4802-24-19 13:50:00 Test Item Value Reference Range Interpretation Comments RBC (test code = RBC) 3.53 4.20-5.40 L [facility] CenterZtakrlmBCHCNPNZPC0421-30-10 13:50:00 Test Item Value Reference Range Interpretation Comments Hct (test code = Hct) 32.5 36.0-48.0 L [facility] CenterNulhgshWVITWBXQMB0925-31-46 13:50:00 Test Item Value Reference Range Interpretation Comments MCV (test code = MCV) 92.0 81.0-99.0 N [facility] CenterVnmobzlCKUTETCNAP6061-36-15 13:50:00 Test Item Value Reference Range Interpretation Comments Basophils (test code = 0.7 See_Comment N [Aut omated message] The Basophils) system which ge nerated this result tra nsmitted reference range : <=1.0. The reference r giorgio was not used to int erpret this result as normal/abnormal . [facility] CenterWdflqoyFZGIYCZXXM1204-73-02 13:50:00 Test Item Value Reference Range Interpretation Comments Eosinophils (test code = 3.9 See_Comment N [A utomated message] The Eosinophils) system which ge nerated this result tra nsmitted reference range : <=4.0. The reference r giorgio was not used to int erpret this result as normal/abnormal . [facility] CenterFwyhguzIBIHLEFZUL5058-53-42 13:50:00 Test Item Value Reference Range Interpretation Comments Monocytes (test code = Monocytes) 6.8 2.0-12.0 N [facility] CenterZxaauagBTJZQBLDXJ3194-30-67 13:50:00 Test Item Value Reference Range Interpretation Comments Lymphocytes (test code = Lymphocytes) 12.6 20.0-40.0 L [facility] CenterYvnlljmNISEXTRUED4354-03-61 13:50:00 Test Item Value Reference Range Interpretation Comments Monocytes # (test code 0.4 See_Comment N [Aut omated message] The = Monocytes #) system which generated this result tra nsmitted reference range : <=0.8. The reference r giorgio was not used to int erpret this result as normal/abnormal . [facility] CenterLztwkzySUPTHYOGBZ5093-95-89 13:50:00 Test Item Value Reference Range Interpretation Comments Lymphocytes # (test code = Lymphocytes 0.8 1.0-5.5 L #) [facility] CenterKfzhzpzQDAJREEYBV4882-17-31 13:50:00 Test Item Value Reference Range Interpretation Comments Segs-Bands # (test code = Segs-Bands #) 4.8 1.5-8.1 N [facility] CenterOtbiityKFFGJSUSEY6018-69-19 13:50:00 Test Item Value Reference Range Interpretation Comments Segs (test code = Segs) 76.0 45.0-75.0 H [facility] CenterGfuzkvgPREXGPVZLT4025-57-97 13:50:00 Test Item Value Reference Range Interpretation Comments Eosinophils # (test code 0.2 See_Comment N [A utomated message] The = Eosinophils #) system whic h generated this result tra nsmitted reference range : <=0.5. The reference r giorgio was not used to int erpret this result as normal/abnormal . [facility]VbwdugnZFFOUWNBLD0365-79-94 13:50:00 Test Item Value Reference Range Interpretation Comments UA CaOx Minerva (test Many /HPF A code = UA CaOx Minerva) *ABN*(06/07/2013 08:50:00) [facility] CenterBmuxzzcMNPEAKEVCB6614-26-21 13:50:00 Test Item Value Reference Range Interpretation Comments UA Mucus (test code = Few /LPF UA Mucus) *NA*(06/07/2013 08:50:00) [facility] CenterVliomolLKWKPVABQE2398-62-07 13:50:00 Test Item Value Reference Range Interpretation Comments UA Bacteria (test code Occasional /HPF = UA Bacteria) *NA*(06/07/2013 08:50:00) [facility] CenterOltworyBIAXJKONHU4621-59-97 13:50:00 Test Item Value Reference Range Interpretation Comments UA WBC (test code = 2 See_Comment N [Automa anderson message] The UA WBC) system which ge nerated this result transmit anderson reference range : <=5. The reference range was not used to interpr et this result as aakash l/abnormal. [facility] CenterRmzlpmkHGTFMVLWXO8405-76-66 13:50:00 Test Item Value Reference Range Interpretation Comments UA Sq Epi (test code Occasional /LPF = UA Sq Epi) *NA*(06/07/2013 08:50:00) [facility] CenterTgjvhiaYBMSXQCIPO2325-52-38 13:50:00 Test Item Value Reference Range Interpretation Comments UA RBC (test code = 5 See_Comment H [Automa anderson message] The UA RBC) system which ge nerated this result transmit anderson reference range : <=2. The reference range was not used to interpr et this result as aakash l/abnormal. [facility] CenterGalxlcsNEMNQEXMOH3297-04-35 13:50:00 Test Item Value Reference Range Interpretation Comments UA Leuk Est (test Negative (06/07/2013 N code = UA Leuk Est) 08:50:00) [facility] CenterHridyvlHZETYNBCFJ6986-23-28 13:50:00 Test Item Value Reference Range Interpretation Comments UA Blood (test code = Negative (06/07/2013 N UA Blood) 08:50:00) [facility] CenterZabrbybRKWXJXOOHI9115-34-20 13:50:00 Test Item Value Reference Range Interpretation Comments UA Nitrite (test code Negative (06/07/2013 N = UA Nitrite) 08:50:00) [facility]ballVeprupfLRSRWTNKSI4157-55-66 13:50:00 Test Item Value Reference Range Interpretation Comments UA Bili (test code = Negative *NA*(06/07/2013 UA Bili) 08:50:00) [facility] TomballBieqwkrYJUPCOWFLK4837-65-65 13:50:00 Test Item Value Reference Range Interpretation Comments UA Protein (test code = 50 mg/dL A UA Protein) *ABN*(06/07/2013 08:50:00) [facility] TomballSizhhypNKPUKFGZJI5091-39-84 13:50:00 Test Item Value Reference Range Interpretation Comments UA Gran Cast (test code = UA Gran Cast) 2 [facility] TomballPmyzxobEUSCGVIRAH8996-40-70 13:50:00 Test Item Value Reference Range Interpretation Comments UA Urobilinogen (test code *NA*(06/07/2013 0.1-1.0 = UA Urobilinogen) 08:50:00) [facility] TomballHqbncfjCLEVFQRDWF5128-21-32 13:50:00 Test Item Value Reference Range Interpretation Comments UA Glucose (test code Negative mg/dL = UA Glucose) *NA*(06/07/2013 08:50:00) [facility] TomballTlkfbysLTJIUWFOYF1929-48-18 13:50:00 Test Item Value Reference Range Interpretation Comments UA Ketones (test code = 20 mg/dL A UA Ketones) *ABN*(06/07/2013 08:50:00) [facility] TomballHwtgnooGSKJFWSVJX8842-25-81 13:50:00 Test Item Value Reference Range Interpretation Comments UA pH (test code = UA pH) 6.0 5.0-8.0 N [facility] TomballMidxoxpGMFTSUEKOG9552-85-31 13:50:00 Test Item Value Reference Range Interpretation Comments UA Spec Grav (test code = UA Spec Grav) 1.026 N [facility] CenterUqatugcJQFBTUVJPX3207-82-64 13:50:00 Test Item Value Reference Range Interpretation Comments UA Turbidity (test code = Clear (06/07/2013 N UA Turbidity) 08:50:00) [facility]JuviirkOOTCSZBITV8392-31-16 13:50:00 Test Item Value Reference Range Interpretation Comments UA Color (test code = Yellow *NA*(06/07/2013 UA Color) 08:50:00) [facility] HospitalIcqecjeZedrzmlgivyx5152-15-00 13:50:00 Test Item Value Reference Range Interpretation Comments Culture: Urine (test code = Culture: Urine) [facility] TylerKawisynXTRDVEVHD7862-68-35 06:59:00 Test Item Value Reference Range Interpretation Comments eGFR (test code = eGFR) 44 [facility] TylerGmaeobnYYTFEPSTM2712-48-10 06:59:00 Test Item Value Reference Range Interpretation Comments Glucose Lvl (test code = Glucose Lvl) 100 70-99 H [facility] TylerXhzjnbnWFUDMWCCU3864-03-72 06:59:00 Test Item Value Reference Range Interpretation Comments BUN (test code = BUN) 11 7-22 N [facility] TylerFxekgolISWBWVBDP4134-45-17 06:59:00 Test Item Value Reference Range Interpretation Comments Calcium Lvl (test code = Calcium Lvl) 7.8 8.5-10.5 L [facility] TylerLkbefgsJYDDUAODT9646-20-48 06:59:00 Test Item Value Reference Range Interpretation Comments Creatinine Lvl (test code = Creatinine 1.4 0.5-1.4 N Lvl) [facility] TylerKaveexqKOYEEMWYD3556-27-86 06:59:00 Test Item Value Reference Range Interpretation Comments Potassium Lvl (test code = Potassium 4.3 3.5-5.1 N Lvl) [facility] TylerJueryhjCRQUZQPHC9860-43-53 06:59:00 Test Item Value Reference Range Interpretation Comments Sodium Lvl (test code = Sodium Lvl) 143 135-145 N [facility] TylerLcaczeuOGRPEPDWA6188-95-90 06:59:00 Test Item Value Reference Range Interpretation Comments CO2 (test code = CO2) 26 24-32 N [facility] TylerZqrvlfcBQISOTLRL3092-33-33 06:59:00 Test Item Value Reference Range Interpretation Comments Chloride Lvl (test code = Chloride Lvl) 106 95-109 N [facility] TylerEihpesaLCCAEOWVP9152-69-59 06:59:00 Test Item Value Reference Range Interpretation Comments AGAP (test code = AGAP) 15.3 10.0-20.0 N [facility] CenterSfulhscXPRRWWRZQY7671-31-54 06:59:00 Test Item Value Reference Range Interpretation Comments MPV (test code = MPV) 9.6 7.4-10.4 N [facility] CenterHhxyxqiASRFOPCTUQ7078-80-77 06:59:00 Test Item Value Reference Range Interpretation Comments Platelet (test code = Platelet) 180 133-450 N [facility] CenterZmhdahvRFFRBKPCXF7588-11-80 06:59:00 Test Item Value Reference Range Interpretation Comments MCH (test code = MCH) 31.5 pg 27.0-31.0 H [facility] CenterYjmtwldBRUIASIADX1432-82-39 06:59:00 Test Item Value Reference Range Interpretation Comments MCHC (test code = MCHC) 32.9 32.0-36.0 N [facility] CenterCmrgjidVJQHSOZBCI5139-52-40 06:59:00 Test Item Value Reference Range Interpretation Comments Hct (test code = Hct) 29.2 36.0-48.0 L [facility] CenterRexqutjOOOVSUTMND3666-13-88 06:59:00 Test Item Value Reference Range Interpretation Comments RDW (test code = RDW) 13.0 11.5-14.5 N [facility] CenterTxjkngsEJFZTZAKBZ3204-93-36 06:59:00 Test Item Value Reference Range Interpretation Comments MCV (test code = MCV) 96.0 81.0-99.0 N [facility] CenterJijuqwvDWZBQQUORS7071-09-88 06:59:00 Test Item Value Reference Range Interpretation Comments WBC (test code = WBC) 9.8 3.7-10.4 N [facility] CenterFtjnbpuAYSUESKXMR9002-52-28 06:59:00 Test Item Value Reference Range Interpretation Comments RBC (test code = RBC) 3.04 4.20-5.40 L [facility] CenterUbcatneROOHWIZTWF5747-04-13 06:59:00 Test Item Value Reference Range Interpretation Comments Hgb (test code = Hgb) 9.6 12.0-16.0 L [facility] CenterBdjybuhLIPHZGJYXF1651-74-13 06:59:00 Test Item Value Reference Range Interpretation Comments Basophils (test code = 0.2 See_Comment N [Aut omated message] The Basophils) system which ge nerated this result tra nsmitted reference range : <=1.0. The reference r giorgio was not used to int erpret this result as normal/abnormal . [facility] CenterZtejqhhLDPZJZZEKD0831-40-26 06:59:00 Test Item Value Reference Range Interpretation Comments Monocytes (test code = Monocytes) 5.6 2.0-12.0 N [facility] CenterSvlfflbKHKRTJAWIK5513-19-75 06:59:00 Test Item Value Reference Range Interpretation Comments Segs (test code = Segs) 86.6 45.0-75.0 H [facility] CenterNqgikszWIMCZTHPBI9019-84-85 06:59:00 Test Item Value Reference Range Interpretation Comments Eosinophils (test code = 0.3 See_Comment N [A utomated message] The Eosinophils) system which ge nerated this result tra nsmitted reference range : <=4.0. The reference r giorgio was not used to int erpret this result as normal/abnormal . [facility] CenterSiawvpzEGOUGAROWL7010-01-76 06:59:00 Test Item Value Reference Range Interpretation Comments Lymphocytes (test code = Lymphocytes) 7.3 20.0-40.0 L [facility] CenterDpqtgmfFBPOQSEFCW2618-45-95 06:59:00 Test Item Value Reference Range Interpretation Comments Monocytes # (test code 0.5 See_Comment N [Aut omated message] The = Monocytes #) system which generated this result tra nsmitted reference range : <=0.8. The reference r giorgio was not used to int erpret this result as normal/abnormal . [facility] CenterYdmivjqXGULVJPLUV0605-20-86 06:59:00 Test Item Value Reference Range Interpretation Comments Segs-Bands # (test code = Segs-Bands #) 8.5 1.5-8.1 H [facility] CenterSvefbzbRBRKDLGCYK3322-18-77 06:59:00 Test Item Value Reference Range Interpretation Comments Lymphocytes # (test code = Lymphocytes 0.7 1.0-5.5 L #) [facility] TylerEhwtggrVFMBHVWEM4212-71-00 09:10:00 Test Item Value Reference Range Interpretation Comments Glucose Lvl (test code = Glucose Lvl) 133 70-99 H [facility] TylerUgpcdxdQHXPKVZJM8946-76-94 09:10:00 Test Item Value Reference Range Interpretation Comments eGFR (test code = eGFR) 44 [facility] TylerYihuzouBDCINBFAP3503-63-38 09:10:00 Test Item Value Reference Range Interpretation Comments AGAP (test code = AGAP) 14.9 10.0-20.0 N [facility] TylerAbubdtrMMYVFICXK9356-98-70 09:10:00 Test Item Value Reference Range Interpretation Comments Calcium Lvl (test code = Calcium Lvl) 8.0 8.5-10.5 L [facility] TylerGiajsbiNSLCAKRVN5660-25-83 09:10:00 Test Item Value Reference Range Interpretation Comments Chloride Lvl (test code = Chloride Lvl) 105 95-109 N [facility] TylerBxukhlqBRYOXJBDO4718-32-71 09:10:00 Test Item Value Reference Range Interpretation Comments Sodium Lvl (test code = Sodium Lvl) 143 135-145 N [facility] TylerJqxtjtiWYEAVQEGL8822-53-28 09:10:00 Test Item Value Reference Range Interpretation Comments Potassium Lvl (test code = Potassium 3.9 3.5-5.1 N Lvl) [facility] TylerFryentbWXGGURLQS4411-76-66 09:10:00 Test Item Value Reference Range Interpretation Comments BUN (test code = BUN) 11 7-22 N [facility] TylerHdxasgtYMIGGIOPI1226-41-86 09:10:00 Test Item Value Reference Range Interpretation Comments Creatinine Lvl (test code = Creatinine 1.4 0.5-1.4 N Lvl) [facility] TylerNocgtmmRKKZABKLZ3278-89-70 09:10:00 Test Item Value Reference Range Interpretation Comments CO2 (test code = CO2) 27 24-32 N [facility] CenterKelinqrQBFCHKSCNR3505-75-51 09:10:00 Test Item Value Reference Range Interpretation Comments MPV (test code = MPV) 9.4 7.4-10.4 N [facility] CenterGgywsqsUXLOQZZAUH9010-89-69 09:10:00 Test Item Value Reference Range Interpretation Comments Platelet (test code = Platelet) 206 133-450 N [facility] CenterCokrmpiMMSLQXUKSF5090-90-48 09:10:00 Test Item Value Reference Range Interpretation Comments RDW (test code = RDW) 12.9 11.5-14.5 N [facility] CenterTnycrmpKWETPDNSMA9761-32-93 09:10:00 Test Item Value Reference Range Interpretation Comments MCHC (test code = MCHC) 33.4 32.0-36.0 N [facility] CenterEdkkaeeLPQCPPFGZD8818-26-71 09:10:00 Test Item Value Reference Range Interpretation Comments MCH (test code = MCH) 31.4 pg 27.0-31.0 H [facility] CenterZenkscgOGOAHSSCUI0968-18-54 09:10:00 Test Item Value Reference Range Interpretation Comments MCV (test code = MCV) 93.9 81.0-99.0 N [facility] CenterYgdndzkJAGKWQNFMG7315-73-20 09:10:00 Test Item Value Reference Range Interpretation Comments RBC (test code = RBC) 3.20 4.20-5.40 L [facility] CenterNzeywdsQRMULDNPUN0472-05-52 09:10:00 Test Item Value Reference Range Interpretation Comments Hct (test code = Hct) 30.0 36.0-48.0 L [facility] CenterRumgwsaAJZEYENGIU0501-94-27 09:10:00 Test Item Value Reference Range Interpretation Comments Hgb (test code = Hgb) 10.0 12.0-16.0 L [facility] CenterMxnazyuRBIVUFCNMY8845-56-77 09:10:00 Test Item Value Reference Range Interpretation Comments WBC (test code = WBC) 13.4 3.7-10.4 H [facility] CenterKgijzpiXXNLJALGGF6805-68-52 09:10:00 Test Item Value Reference Range Interpretation Comments Segs-Bands # (test code = Segs-Bands #) 11.9 1.5-8.1 H [facility] CenterRhtuvfiWWBIDXGVND0037-38-27 09:10:00 Test Item Value Reference Range Interpretation Comments Lymphocytes # (test code = Lymphocytes 0.8 1.0-5.5 L #) [facility] CenterScbpdyxKBZLCOQPNZ9938-19-43 09:10:00 Test Item Value Reference Range Interpretation Comments Basophils (test code = 0.2 See_Comment N [Aut omated message] The Basophils) system which ge nerated this result tra nsmitted reference range : <=1.0. The reference r giorgio was not used to int erpret this result as normal/abnormal . [facility] CenterTaylvpyULWDTPSNQA9117-32-54 09:10:00 Test Item Value Reference Range Interpretation Comments Monocytes (test code = Monocytes) 5.8 2.0-12.0 N [facility] CenterEzfbnudOKJSIQYGPI8537-76-21 09:10:00 Test Item Value Reference Range Interpretation Comments Monocytes # (test code 0.8 See_Comment N [Aut omated message] The = Monocytes #) system which generated this result tra nsmitted reference range : <=0.8. The reference r giorgio was not used to int erpret this result as normal/abnormal . [facility] CenterGkowffaPJXQUCYHMX7133-10-58 09:10:00 Test Item Value Reference Range Interpretation Comments Lymphocytes (test code = Lymphocytes) 5.6 20.0-40.0 L [facility] CenterWocivltTAEKWAWPJH9855-50-28 09:10:00 Test Item Value Reference Range Interpretation Comments Segs (test code = Segs) 88.4 45.0-75.0 H [facility] TylerMsaspyzJVIRCIIFI9044-80-45 10:44:39 Test Item Value Reference Range Interpretation Comments AGAP (test code = AGAP) 15.3 10.0-20.0 N [facility] TylerDobijxkTZEEPOFNZ4774-26-31 10:44:39 Test Item Value Reference Range Interpretation Comments CO2 (test code = CO2) 24 24-32 N [facility] TylerAjilvfsMFSGVWWFO8696-70-96 10:44:39 Test Item Value Reference Range Interpretation Comments BUN (test code = BUN) 9 7-22 N [facility] TylerUytkkdyUBUEKHOSB2911-18-70 10:44:39 Test Item Value Reference Range Interpretation Comments Glucose Lvl (test code = Glucose Lvl) 77 70-99 N [facility] TylerFanuqvyWFJCJBGAD1113-44-04 10:44:39 Test Item Value Reference Range Interpretation Comments Creatinine Lvl (test code = Creatinine 0.6 0.5-1.4 N Lvl) [facility] TylerVmedbayJAQYJGRSN3539-02-82 10:44:39 Test Item Value Reference Range Interpretation Comments Calcium Lvl (test code = Calcium Lvl) 8.3 8.5-10.5 L [facility] TylerDfnkjkvJZACRPTUH5551-63-28 10:44:39 Test Item Value Reference Range Interpretation Comments Sodium Lvl (test code = Sodium Lvl) 143 135-145 N [facility] TylerFlckhwsOGAIEZSLI3450-33-83 10:44:39 Test Item Value Reference Range Interpretation Comments Chloride Lvl (test code = Chloride Lvl) 108 95-109 N [facility] TylerNgwrbjaLRQACQGAR6754-36-41 10:44:39 Test Item Value Reference Range Interpretation Comments eGFR (test code = eGFR) 106 [facility] TylerMnngvfaWLVQCSHUK6767-34-91 10:44:39 Test Item Value Reference Range Interpretation Comments Magnesium Lvl (test code = Magnesium 2.3 1.8-2.4 N Lvl) [facility] TylerEsiqookHRBSJPAZE7948-82-98 10:44:39 Test Item Value Reference Range Interpretation Comments Phosphorus (test code = Phosphorus) 3.6 2.5-4.5 N [facility] CenterIzdiyamLFSLIJNNYX6274-18-22 10:44:39 Test Item Value Reference Range Interpretation Comments Monocytes (test code = Monocytes) 8.9 2.0-12.0 N [facility] CenterFyshohdLMBBYLGJAO4260-19-35 10:44:39 Test Item Value Reference Range Interpretation Comments Lymphocytes (test code = Lymphocytes) 30.1 20.0-40.0 N [facility] CenterDyujizeVONXAQOCYY8392-27-90 10:44:39 Test Item Value Reference Range Interpretation Comments Segs (test code = Segs) 55.8 45.0-75.0 N [facility] CenterJjnnkleYBVLYOWUQF3208-06-58 10:44:39 Test Item Value Reference Range Interpretation Comments Basophils (test code = 1.1 See_Comment H [Aut omated message] The Basophils) system which ge nerated this result tra nsmitted reference range : <=1.0. The reference r giorgio was not used to int erpret this result as normal/abnormal . [facility] CenterLdhwrfcKRKVNHKTQI2589-35-48 10:44:39 Test Item Value Reference Range Interpretation Comments Segs-Bands # (test code = Segs-Bands #) 2.0 1.5-8.1 N [facility] CenterIeljzpjCNODPCEQFM8310-29-19 10:44:39 Test Item Value Reference Range Interpretation Comments Eosinophils (test code = 4.1 See_Comment H [A utomated message] The Eosinophils) system which ge nerated this result tra nsmitted reference range : <=4.0. The reference r giorgio was not used to int erpret this result as normal/abnormal . [facility] CenterFkmifjwACVUZSSLBF9544-69-82 10:44:39 Test Item Value Reference Range Interpretation Comments Eosinophils # (test code 0.1 See_Comment N [A utomated message] The = Eosinophils #) system [facility] h generated this result tra nsmitted reference range : <=0.5. The reference r giorgio was not used to int erpret this result as normal/abnormal . [facility] CenterPfezshjKYPBBYNEQL2463-86-23 10:44:39 Test Item Value Reference Range Interpretation Comments Lymphocytes # (test code = Lymphocytes 1.1 1.0-5.5 N #) [facility] CenterBezcxgtKEQESJIEIR4293-87-49 10:44:39 Test Item Value Reference Range Interpretation Comments Monocytes # (test code 0.3 See_Comment N [Aut omated message] The = Monocytes #) system which generated this result tra nsmitted reference range : <=0.8. The reference r giorgio was not used to int erpret this result as normal/abnormal . [facility] CenterZccusdmCOVBCGIAKD1713-19-81 10:44:39 Test Item Value Reference Range Interpretation Comments MCH (test code = MCH) 31.7 pg 27.0-31.0 H [facility] CenterRjtjgiqAZLBQQJRRD4681-99-32 10:44:39 Test Item Value Reference Range Interpretation Comments MCV (test code = MCV) 93.3 81.0-99.0 N [facility] CenterBvwnjrpTRIWITKQXP2241-37-14 10:44:39 Test Item Value Reference Range Interpretation Comments Hct (test code = Hct) 31.2 36.0-48.0 L [facility] CenterOmjaxkiJLESYLRJDN5126-34-07 10:44:39 Test Item Value Reference Range Interpretation Comments Hgb (test code = Hgb) 10.6 12.0-16.0 L [facility] CenterTwlwpjoMSDYFNZIWV9140-08-06 10:44:39 Test Item Value Reference Range Interpretation Comments MCHC (test code = MCHC) 34.0 32.0-36.0 N [facility] CenterWkuclfnZHIQYIAMAA6631-19-27 10:44:39 Test Item Value Reference Range Interpretation Comments WBC (test code = WBC) 3.6 3.7-10.4 L [facility] CenterPwecueqDWJMMYEJEJ2293-09-47 10:44:39 Test Item Value Reference Range Interpretation Comments RBC (test code = RBC) 3.34 4.20-5.40 L [facility] CenterYotbqkhYDRVJMKKQD4019-60-69 10:44:39 Test Item Value Reference Range Interpretation Comments RDW (test code = RDW) 12.9 11.5-14.5 N [facility] CenterHccdyepOVXZLCTIYY5442-46-36 10:44:39 Test Item Value Reference Range Interpretation Comments Platelet (test code = Platelet) 198 133-450 N [facility] CenterGtbktnjPTEDNBJHIY1773-83-88 10:44:39 Test Item Value Reference Range Interpretation Comments MPV (test code = MPV) 9.4 7.4-10.4 N [facility] CenterYybrwcvNHRYQALETQ3688-38-15 10:44:39 Test Item Value Reference Range Interpretation Comments PTT (test code = PTT) 30.7 s 22.9-35.8 N [facility] CenterAckdrloVTHESQORHV3704-32-67 10:44:39 Test Item Value Reference Range Interpretation Comments PT (test code = PT) 14.2 s 12.0-14.7 N [facility]NcwdanrVDXFZEMDCT9702-54-30 10:44:39 Test Item Value Reference Range Interpretation Comments INR (test code = INR) 1.08 0.85-1.17 N [facility] HospitalGmdoqaxBZDHAXEKR2897-94-07 10:44:32 Test Item Value Reference Range Interpretation Comments Potassium Lvl (test code = Potassium 4.3 3.5-5.1 N Lvl) [facility]OY[facility]87[facility] 05:37:00 Test Item Value Reference Range Interpretation Comments RBC product (test code Product available N = RBC product) (06/01/2013 00:37:00) [facility]ballMohzgrmPQMPTEVROH1952-39-53 00:41:36 Test Item Value Reference Range Interpretation Comments UA Urobilinogen (test code *NA*(05/31/2013 0.1-1.0 = UA Urobilinogen) 19:41:36) [facility] HospitalChuxffaECNRBBSXKY0924-91-24 00:41:36 Test Item Value Reference Range Interpretation Comments UA Sq Epi (test code = UA Sq Epi) None Seen [facility] HospitalMyqkomjZWWTTJYSKK7255-02-20 00:41:36 Test Item Value Reference Range Interpretation Comments UA Nitrite (test code Negative (05/31/2013 N = UA Nitrite) 19:41:36) [facility] HospitalQhyqnclOKMWCFNMMU4001-49-97 00:41:36 Test Item Value Reference Range Interpretation Comments UA Leuk Est (test Negative (05/31/2013 N code = UA Leuk Est) 19:41:36) [facility] HospitalRgsehlaAFLWFDOTJI2094-86-21 00:41:36 Test Item Value Reference Range Interpretation Comments UA Blood (test code = Negative (05/31/2013 N UA Blood) 19:41:36) [facility] HospitalLtfgzazJVHRVYMQFJ6633-75-35 00:41:36 Test Item Value Reference Range Interpretation Comments UA Color (test code = Light Yellow UA Color) *NA*(05/31/2013 19:41:36) [facility]IixmrzhDZZWPTHTIR1874-60-93 00:41:36 Test Item Value Reference Range Interpretation Comments UA Turbidity (test code = Clear (05/31/2013 N UA Turbidity) 19:41:36) [facility]ballKgxeqflMIMPLHCVEK9038-51-35 00:41:36 Test Item Value Reference Range Interpretation Comments UA Spec Grav (test code = UA Spec Grav) 1.002 N [facility] TomballNyrlwhpVQPNWVIQTU1888-45-67 00:41:36 Test Item Value Reference Range Interpretation Comments UA Protein (test code Negative mg/dL N = UA Protein) (05/31/2013 19:41:36) [facility]ballEfzlfkbPYTUCAZWBQ9075-14-72 00:41:36 Test Item Value Reference Range Interpretation Comments UA pH (test code = UA pH) 6.5 5.0-8.0 N [facility] TomballNnhrhoqNAUJQWCUEP2166-62-21 00:41:36 Test Item Value Reference Range Interpretation Comments UA Glucose (test code Negative mg/dL = UA Glucose) *NA*(05/31/2013 19:41:36) [facility] TomballUivkuttKNBBYGHWOP7800-18-29 00:41:36 Test Item Value Reference Range Interpretation Comments UA Ketones (test code Negative mg/dL = UA Ketones) *NA*(05/31/2013 19:41:36) [facility] TomballSzhjbhmBKMTXSXWYA5293-16-14 00:41:36 Test Item Value Reference Range Interpretation Comments UA Bili (test code = Negative *NA*(05/31/2013 UA Bili) 19:41:36) [facility] TylerCepvpjcAAYXGEESN4038-25-75 18:30:19 Test Item Value Reference Range Interpretation Comments Albumin Lvl (test code = Albumin Lvl) 3.7 3.5-5.0 N [facility] TylerUdewyttMZHERTLKM2661-63-83 18:30:19 Test Item Value Reference Range Interpretation Comments ALT (test code = ALT) 14 See_Comment N [Auto mated message] The system which ge nerated this result transmit anderson reference range : <=65. The reference range was not used to interpr et this result as aakash l/abnormal. [facility] TylerPtkwmzjJYFKJEAJM3183-64-63 18:30:19 Test Item Value Reference Range Interpretation Comments Bili Total (test code = Bili Total) 0.8 0.2-1.3 N [facility] TylerXjzfagjTHCEJXTOC5254-16-15 18:30:19 Test Item Value Reference Range Interpretation Comments Alk Phos (test code = Alk Phos) 103 39-136 N [facility] TylerIqmkkkrKMDZKTBWB6638-44-31 18:30:19 Test Item Value Reference Range Interpretation Comments Total Protein (test code = Total 6.7 6.4-8.4 N Protein) [facility] TylerSxldncqAQPVLMGDS0129-82-70 18:30:19 Test Item Value Reference Range Interpretation Comments Bili Direct (test code 0.2 See_Comment N [Aut omated message] The = Bili Direct) system which generated this result tra nsmitted reference range : <=0.3. The reference r giorgio was not used to int erpret this result as aakash l/abnormal. [facility] TylerAnhdfghMVPMZDRQS9125-62-08 18:30:19 Test Item Value Reference Range Interpretation Comments AST (test code = AST) 20 See_Comment N [Auto mated message] The system which ge nerated this result transmit anderson reference range : <=37. The reference range was not used to interpr et this result as aakash l/abnormal. [facility] TylerBqtrjkgVSIBJONAS3712-27-17 18:30:19 Test Item Value Reference Range Interpretation Comments A/G Ratio (test code = A/G Ratio) 1.2 0.7-1.6 N [facility] TylerYzolpgwOEQETKAMY7438-18-14 18:30:19 Test Item Value Reference Range Interpretation Comments Bili Indirect (test 0.6 See_Comment N [Automa anderson message] The code = Bili Indirect) system which generated this result tra nsmitted reference range : <=1.0. The reference r giorgio was not used to int erpret this result as normal/abnormal . [facility] TylerRnxdqzsJQXXIFPTU4796-16-89 18:30:19 Test Item Value Reference Range Interpretation Comments Globulin (test code = Globulin) 3.0 2.0-4.0 N [facility] CenterUmzigciNLNCPZPVUS4612-58-95 18:30:19 Test Item Value Reference Range Interpretation Comments Eosinophils (test code = 2.4 See_Comment N [A utomated message] The Eosinophils) system which ge nerated this result tra nsmitted reference range : <=4.0. The reference r giorgio was not used to int erpret this result as normal/abnormal . [facility] CenterQtsycagPCQRIVOTSW2670-04-78 18:30:19 Test Item Value Reference Range Interpretation Comments Eosinophils # (test code 0.1 See_Comment N [A utomated message] The = Eosinophils #) system whic h generated this result tra nsmitted reference range : <=0.5. The reference r giorgio was not used to int erpret this result as normal/abnormal . [facility] XscysjlKJARXXJVFN6555-48-43 18:30:19 Test Item Value Reference Range Interpretation Comments INR (test code = INR) 1.01 0.85-1.17 N [facility] QwmvcgpLKAOJQJQWJ5215-89-36 18:30:19 Test Item Value Reference Range Interpretation Comments PTT (test code = PTT) 30.3 s 22.9-35.8 N [employer]BuildBtmswnuFVNADIAWSY8068-49-34 18:30:19 Test Item Value Reference Range Interpretation Comments PT (test code = PT) 13.5 s 12.0-14.7 N [employer] ESZPZPB3674-31-98 18:00:00 Test Item Value Reference Range Interpretation Comments ABO/Rh (test code = ABO/Rh) O POS [facility] [employer] MCGCOVV7765-49-84 18:00:00 Test Item Value Reference Range Interpretation Comments Antibody Scrn (test Negative (05/31/2013 N code = Antibody Scrn) 13:00:00) [employer] CYRSHBL5638-42-02 17:13:00 Test Item Value Reference Range Interpretation Comments RBC product (test code Product available N = RBC product) (05/31/2013 12:13:00) [employer]BejrtqkAKMBSTWVL5956-21-29 12:20:00 Test Item Value Reference Range Interpretation Comments eGFR (test code = eGFR) 74 [facility] HnockkoZZGQRAZKZ9326-20-12 12:20:00 Test Item Value Reference Range Interpretation Comments Glucose Lvl (test code = Glucose Lvl) 67 70-99 L [facility] QjqzfjrXDCXAXOGJ1941-33-14 12:20:00 Test Item Value Reference Range Interpretation Comments Sodium Lvl (test code = Sodium Lvl) 146 135-145 H [facility] FcwpcyeQAPWTPROG5833-00-56 12:20:00 Test Item Value Reference Range Interpretation Comments BUN (test code = BUN) 14 7-22 N SparxentNqpniuuRAVSQHZSW3038-33-52 12:20:00 Test Item Value Reference Range Interpretation Comments Creatinine Lvl (test code = Creatinine 0.9 0.5-1.4 N Lvl) [facility] TylerVfvtwiiBJIMTKUYD2144-93-68 12:20:00 Test Item Value Reference Range Interpretation Comments CO2 (test code = CO2) 30 24-32 N [facility] TylerEoxlhqrAPSVYNSVN3008-65-85 12:20:00 Test Item Value Reference Range Interpretation Comments Potassium Lvl (test code = Potassium 4.0 3.5-5.1 N Lvl) [facility] TylerZtozvxaMJHRKVUNX0487-29-47 12:20:00 Test Item Value Reference Range Interpretation Comments Chloride Lvl (test code = Chloride Lvl) 107 95-109 N [facility] TylerOxyjcpdASIBHGQZL4618-76-74 12:20:00 Test Item Value Reference Range Interpretation Comments Calcium Lvl (test code = Calcium Lvl) 8.9 8.5-10.5 N [facility] TylerAkumufcSKOKUNBZL3561-29-13 12:20:00 Test Item Value Reference Range Interpretation Comments AGAP (test code = AGAP) 13.0 10.0-20.0 N [facility] TylerMzdzdivASVNZMQLE8792-17-08 12:20:00 Test Item Value Reference Range Interpretation Comments Phosphorus (test code = Phosphorus) 3.4 2.5-4.5 N [facility] TylerBnmgcukZDHOSLZBH1842-56-19 12:20:00 Test Item Value Reference Range Interpretation Comments U Preg (test code = U Negative (05/28/2013 N Preg) 07:20:00) [facility] CenterLlwmgqtFUMJMGFIAB4417-08-93 12:20:00 Test Item Value Reference Range Interpretation Comments MCV (test code = MCV) 93.7 81.0-99.0 N [facility] CenterOvgzoytKVPYHWVRUF0361-06-61 12:20:00 Test Item Value Reference Range Interpretation Comments Hgb (test code = Hgb) 11.5 12.0-16.0 L [facility] CenterXopiuepKMSMURXKPD6843-38-66 12:20:00 Test Item Value Reference Range Interpretation Comments MCH (test code = MCH) 31.9 pg 27.0-31.0 H [facility] CenterTyhpaxbZVEBLZRUOH7786-22-83 12:20:00 Test Item Value Reference Range Interpretation Comments Hct (test code = Hct) 33.7 36.0-48.0 L [facility] CenterFmgnibtPUFLZQBDLG9188-69-75 12:20:00 Test Item Value Reference Range Interpretation Comments MCHC (test code = MCHC) 34.1 32.0-36.0 N [facility] CenterFxjddsgLZEFRGXZJG8940-53-44 12:20:00 Test Item Value Reference Range Interpretation Comments MPV (test code = MPV) 9.3 7.4-10.4 N [facility] CenterZmlttgzSOBDXTSZNN5491-06-52 12:20:00 Test Item Value Reference Range Interpretation Comments RDW (test code = RDW) 13.0 11.5-14.5 N [facility] CenterBqslpjfECVIKRMDGR3875-54-82 12:20:00 Test Item Value Reference Range Interpretation Comments Platelet (test code = Platelet) 209 133-450 N [facility] CenterMgcgfdvVUEXEYYXKT9166-26-77 12:20:00 Test Item Value Reference Range Interpretation Comments RBC (test code = RBC) 3.60 4.20-5.40 L [facility] CenterZcgxfekTLHWSPWUYC8730-17-50 12:20:00 Test Item Value Reference Range Interpretation Comments WBC (test code = WBC) 4.7 3.7-10.4 N [facility] CenterGtzxfzpCBKJVAKIGU6120-41-28 12:20:00 Test Item Value Reference Range Interpretation Comments Eosinophils # (test code 0.2 See_Comment N [A utomated message] The = Eosinophils #) system whic h generated this result tra nsmitted reference range : <=0.5. The reference r giorgio was not used to int erpret this result as normal/abnormal . [facility] CenterLknvsreSHSYWVSMKO0864-45-38 12:20:00 Test Item Value Reference Range Interpretation Comments Basophils (test code = 1.0 See_Comment N [Aut omated message] The Basophils) system which ge nerated this result tra nsmitted reference range : <=1.0. The reference r giorgio was not used to int erpret this result as normal/abnormal . [facility] CenterYrusazaWLKDIEATIE0041-77-57 12:20:00 Test Item Value Reference Range Interpretation Comments Monocytes # (test code 0.3 See_Comment N [Aut omated message] The = Monocytes #) system which generated this result tra nsmitted reference range : <=0.8. The reference r giorgio was not used to int erpret this result as normal/abnormal . [facility] CenterYinqnohGKANDWXSEP8860-76-95 12:20:00 Test Item Value Reference Range Interpretation Comments Eosinophils (test code = 3.5 See_Comment N [A utomated message] The Eosinophils) system which ge nerated this result tra nsmitted reference range : <=4.0. The reference r giorgio was not used to int erpret this result as normal/abnormal . [facility] CenterQmuyxczJHJBREMXMZ4273-54-91 12:20:00 Test Item Value Reference Range Interpretation Comments Segs-Bands # (test code = Segs-Bands #) 3.0 1.5-8.1 N [facility] CenterBbxcxleNSVEEXNCVE0764-89-96 12:20:00 Test Item Value Reference Range Interpretation Comments Lymphocytes # (test code = Lymphocytes 1.2 1.0-5.5 N #) [facility] CenterUgnncbiOJNFJPKLJN3584-38-03 12:20:00 Test Item Value Reference Range Interpretation Comments Monocytes (test code = Monocytes) 6.5 2.0-12.0 N [facility] CenterHovxsbtYUVDFMNCCZ8735-28-74 12:20:00 Test Item Value Reference Range Interpretation Comments Segs (test code = Segs) 64.2 45.0-75.0 N [facility] CenterLvyvjroJOSLPKPNID1308-12-73 12:20:00 Test Item Value Reference Range Interpretation Comments Lymphocytes (test code = Lymphocytes) 24.8 20.0-40.0 N [facility] CenterWlpdiitPAZBULKCYO9062-31-51 12:20:00 Test Item Value Reference Range Interpretation Comments INR (test code = INR) 0.97 0.85-1.17 N [facility] CenterWzifmocHUNIPJCXIB6713-24-03 12:20:00 Test Item Value Reference Range Interpretation Comments PTT (test code = PTT) 29.5 s 22.9-35.8 N [facility] CenterVynyelwTEOQSKMFUL6611-78-85 12:20:00 Test Item Value Reference Range Interpretation Comments PT (test code = PT) 13.1 s 12.0-14.7 N [facility]KszpddjQPPZVHLHJG8356-62-02 12:20:00 Test Item Value Reference Range Interpretation Comments Hep B Core Ab (test Negative *NA*(05/28/2013 code = Hep B Core Ab) 07:20:00) [facility]AhbhixpHGSQOKASIV0591-13-14 12:20:00 Test Item Value Reference Range Interpretation Comments Hep Bs Ab (test code = Hep Bs Ab) 2.7 N [facility] HospitalUzmkexdHEZTQUWDMU3422-76-46 12:20:00 Test Item Value Reference Range Interpretation Comments Hep Be Ag (test code = Hep Be Ag) NONREACTIVE [facility] TaylorWxrxvvfCZBCXNJIBX3273-82-66 12:20:00 Test Item Value Reference Range Interpretation Comments Hep Bs Ag (test code Negative *NA*(05/28/2013 = Hep Bs Ag) 07:20:00) [facility] TaylorHanaameHMWADCVTDY4127-74-79 12:20:00 Test Item Value Reference Range Interpretation Comments Hep C Ab (test code = Negative *NA*(05/28/2013 Hep C Ab) 07:20:00) [facility] TaylorVppwszmQTKTSIAAMX6193-69-47 12:20:00 Test Item Value Reference Range Interpretation Comments HIV 1/2 Ab (test code Negative *NA*(05/28/2013 = HIV 1/2 Ab) 07:20:00) [facility]RcyekyjFFAJYBTSOC3080-03-33 12:20:00 Test Item Value Reference Range Interpretation Comments Source (test code = Source) WHOLE BLOOD [facility] HospitalGyeiewzGBFWRZJRLL2845-89-13 12:20:00 Test Item Value Reference Range Interpretation Comments EBV PCR Qnt (test code = EBV PCR Qnt) no gt [facility] TaylorannINFECTIOUS DTEBDBYV6222-03-22 12:20:00 Test Item Value Reference Range Interpretation Comments CMV PCR Qnt (log) (test code = CMV PCR no gt Qnt (log)) [facility] TZNFMHSI0242-95-23 12:20:00 Test Item Value Reference Range Interpretation Comments Source CMV PCR Qnt Blood *NA*(05/28/2013 (test code = Source CMV 07:20:00) PCR Qnt) [facility] LDHAXCQJ9159-11-90 12:20:00 Test Item Value Reference Range Interpretation Comments CMV PCR Qnt (test Negative (05/28/2013 N code = CMV PCR Qnt) 07:20:00) [facility] HospitalZlzzwmlVGVQDVASTS0083-09-46 12:20:00 Test Item Value Reference Range Interpretation Comments UA Urobilinogen (test code *NA*(05/28/2013 0.1-1.0 = UA Urobilinogen) 07:20:00) [facility] TaylorXvkavxnSERQRCEFYY2964-88-02 12:20:00 Test Item Value Reference Range Interpretation Comments UA Leuk Est (test Negative (05/28/2013 N code = UA Leuk Est) 07:20:00) [facility] TaylorOvpmqddMSUKCZEUHB9963-34-27 12:20:00 Test Item Value Reference Range Interpretation Comments UA RBC (test code = 2 See_Comment N [Automa anderson message] The UA RBC) system which ge nerated this result transmit anderson reference range : <=2. The reference range was not used to interpr et this result as aakash l/abnormal. [facility] CenterRdaliwrWLZJSJHHMZ6838-99-34 12:20:00 Test Item Value Reference Range Interpretation Comments UA WBC (test code = 1 See_Comment N [Automa anderson message] The UA WBC) system which ge nerated this result transmit anderson reference range : <=5. The reference range was not used to interpr et this result as aakash l/abnormal. [facility] CenterFggowxnFZFPSMLTJR2715-61-00 12:20:00 Test Item Value Reference Range Interpretation Comments UA Nitrite (test code Negative (05/28/2013 N = UA Nitrite) 07:20:00) [facility] CenterJfuaqagOEFSIUXUFL4890-86-15 12:20:00 Test Item Value Reference Range Interpretation Comments UA Sq Epi (test code = Few /LPF UA Sq Epi) *NA*(05/28/2013 07:20:00) [facility] CenterItzcyhkOYDHZTAYLB6631-76-63 12:20:00 Test Item Value Reference Range Interpretation Comments UA Turbidity (test code = Clear (05/28/2013 N UA Turbidity) 07:20:00) [facility]BrooryjPLXIYNBOBB4901-96-88 12:20:00 Test Item Value Reference Range Interpretation Comments UA pH (test code = UA pH) 5.5 5.0-8.0 N [facility] CenterPsapfsaUFCPNQEHUA6486-82-67 12:20:00 Test Item Value Reference Range Interpretation Comments UA Color (test code = Yellow *NA*(05/28/2013 UA Color) 07:20:00) [facility] CenterJgrfidwQCOAVMPKZL2847-57-54 12:20:00 Test Item Value Reference Range Interpretation Comments UA Spec Grav (test code = UA Spec Grav) 1.025 N [facility] CenterIqtmuyyHUDJCOSERR4165-91-34 12:20:00 Test Item Value Reference Range Interpretation Comments UA Blood (test code = Small *ABN*(05/28/2013 A UA Blood) 07:20:00) [facility] CenterKasfxgdKPWIYPDJOK7140-35-26 12:20:00 Test Item Value Reference Range Interpretation Comments UA Glucose (test code Negative mg/dL = UA Glucose) *NA*(05/28/2013 07:20:00) [facility] CenterEdqhvssXYFPFSJDTH2964-01-82 12:20:00 Test Item Value Reference Range Interpretation Comments UA Protein (test code = 10 mg/dL A UA Protein) *ABN*(05/28/2013 07:20:00) [facility] CenterSciqrrvTQCYUDWSRJ5429-60-18 12:20:00 Test Item Value Reference Range Interpretation Comments UA Bili (test code = Negative *NA*(05/28/2013 UA Bili) 07:20:00) [facility] CenterDuvldjoWVOGYEZJPM9358-35-97 12:20:00 Test Item Value Reference Range Interpretation Comments UA Ketones (test code Negative mg/dL = UA Ketones) *NA*(05/28/2013 07:20:00) [facility] CenterPwyyvaeVWAYKEZBCZ3099-51-91 12:20:00 Test Item Value Reference Range Interpretation Comments UA Renal Epi (test code = UA Renal Epi) 1 H [facility] CenterOpdezztFRILWANTOA0728-68-52 12:20:00 Test Item Value Reference Range Interpretation Comments UA Mucus (test code = Few /LPF UA Mucus) *NA*(05/28/2013 07:20:00) [facility] CenterPigvrkhCbzcbiksbyoo6939-61-98 12:20:00 Test Item Value Reference Range Interpretation Comments Culture: Urine (test code = Culture: Urine) [facility] TylerYdkggseZZUFNGPRL4408-94-49 15:04:00 Test Item Value Reference Range Interpretation Comments eGFR (test code = eGFR) 86 [facility] TylerGitretdHGORUYSOW3593-75-75 15:04:00 Test Item Value Reference Range Interpretation Comments POC Creatinine (test code = POC 0.8 0.5-1.4 N Creatinine) [facility] TylerXuihvosNIWNVZGPG9362-21-19 14:15:00 Test Item Value Reference Range Interpretation Comments U Alb/Crea (test code = U Alb/Crea) no gt N [facility] TylerIamirbnHRZKGJZZQ9826-19-19 14:15:00 Test Item Value Reference Range Interpretation Comments U Microalb (test code = U Microalb) no gt [facility] TylerEpwqnijEEPJIQIKS6131-56-05 14:15:00 Test Item Value Reference Range Interpretation Comments U Creatinine (test code = U Creatinine) 30.8 [facility] TaylorQlbavibQIKLCBUJV4690-10-43 14:15:00 Test Item Value Reference Range Interpretation Comments U Protein (test code = U Protein) 9.0 [facility] NLDYUYH8151-73-77 13:54:00 Test Item Value Reference Range Interpretation Comments ABO/Rh (test code = ABO/Rh) O POS [facility] [employer] [facility] GZZOUWN5616-45-51 12:57:00 Test Item Value Reference Range Interpretation Comments ABO/Rh (test code = ABO/Rh) O POS [facility] AjjqvkbYAGPULPOU5473-20-68 12:05:00 Test Item Value Reference Range Interpretation Comments Opiate Scr (test code Negative (03/09/2013 N = Opiate Scr) 07:05:00) [facility] UekigkkTYKISFWXF6491-03-56 12:05:00 Test Item Value Reference Range Interpretation Comments Methadone Scr (test Negative (03/09/2013 N code = Methadone Scr) 07:05:00) [facility] TqjsjdcKPXMRITIW1913-96-70 12:05:00 Test Item Value Reference Range Interpretation Comments Propoxyphn Scr (test Negative (03/09/2013 N code = Propoxyphn Scr) 07:05:00) [facility] AgsvgslRRHCBOWIV6616-94-40 12:05:00 Test Item Value Reference Range Interpretation Comments PCP Scr (test code = Negative (03/09/2013 N PCP Scr) 07:05:00) [facility] KwpehguNOWFESOSX3700-49-43 12:05:00 Test Item Value Reference Range Interpretation Comments Cutoff Values (test See Note 6(03/09/2013 N code = Cutoff Values) 07:05:00) [facility] TaylorNcbjiorEEHNRNPXY2205-11-96 12:05:00 Test Item Value Reference Range Interpretation Comments Joanne Scr (test code = Negative (03/09/2013 N Joanne Scr) 07:05:00) [facility] TaylorRbbibyuMYZGSHFYD6881-63-27 12:05:00 Test Item Value Reference Range Interpretation Comments Cannab Scr (test code Negative (03/09/2013 N = Cannab Scr) 07:05:00) [facility] TaylorRrimkvyCHOUQECDM1676-39-02 12:05:00 Test Item Value Reference Range Interpretation Comments Benzodiaz Scr (test Negative (03/09/2013 N code = Benzodiaz Scr) 07:05:00) [facility] TylerVqtoeriPWSVZDYJW4304-64-40 12:05:00 Test Item Value Reference Range Interpretation Comments Cocaine Scr (test code Negative (03/09/2013 N = Cocaine Scr) 07:05:00) [facility] TylerEftaagaSEVRTSGTJ1265-02-68 12:05:00 Test Item Value Reference Range Interpretation Comments Amph Scr (test code = Negative (03/09/2013 N Amph Scr) 07:05:00) [facility] TylerJedyjilVNZCOHJLR8623-93-10 12:05:00 Test Item Value Reference Range Interpretation Comments LDH (test code = LDH) 193 98-192 H [facility] TylerMqhmsnrEQPLJBARL9143-11-76 12:05:00 Test Item Value Reference Range Interpretation Comments Phosphorus (test code = Phosphorus) 3.3 2.5-4.5 N [facility] TylerMzvahfzDOAYFIDAV6530-81-46 12:05:00 Test Item Value Reference Range Interpretation Comments Uric Acid (test code = Uric Acid) 2.3 2.5-7.0 L [facility] TylerYdvttaxMQKQHSRBU4629-02-58 12:05:00 Test Item Value Reference Range Interpretation Comments U Alb/Crea (test code = U Alb/Crea) 5.7 N [facility] TylerPvfswrtEGFSXSYRU2538-63-59 12:05:00 Test Item Value Reference Range Interpretation Comments U Creatinine (test code = U Creatinine) 92.9 [facility] TylerZwqnwapOGJMDTFQY0786-13-48 12:05:00 Test Item Value Reference Range Interpretation Comments U Microalb (test code = U Microalb) 5.3 [facility] TylerVvncuvhBCOVVEFKO5012-07-48 12:05:00 Test Item Value Reference Range Interpretation Comments U Protein (test code = U Protein) 15.2 [facility] TylerQniypelEOKTRUSLA1172-96-85 12:05:00 Test Item Value Reference Range Interpretation Comments eGFR (test code = eGFR) 86 [facility] TylerJmnqqesFFXEAKALB5280-28-98 12:05:00 Test Item Value Reference Range Interpretation Comments AST (test code = AST) 13 See_Comment N [Auto mated message] The system which ge nerated this result transmit anderson reference range : <=37. The reference range was not used to interpr et this result as aakash l/abnormal. [facility] TylerCykwqoqJGULHBPXU1713-26-22 12:05:00 Test Item Value Reference Range Interpretation Comments Total Protein (test code = Total 8.2 6.4-8.4 N Protein) [facility] TylerRxazwnhQNDHEONDT7957-83-56 12:05:00 Test Item Value Reference Range Interpretation Comments CO2 (test code = CO2) 28 24-32 N [facility] TylerGdbyvldDMLDIHCBI6570-34-22 12:05:00 Test Item Value Reference Range Interpretation Comments Calcium Lvl (test code = Calcium Lvl) 9.8 8.5-10.5 N [facility] TylerIafnepdLHEQSWNYL8273-35-21 12:05:00 Test Item Value Reference Range Interpretation Comments Chloride Lvl (test code = Chloride Lvl) 102 95-109 N [facility] TylerSiicbdiXRMJJNJFZ9597-20-22 12:05:00 Test Item Value Reference Range Interpretation Comments Potassium Lvl (test code = Potassium 4.0 3.5-5.1 N Lvl) [facility] TylerSuercovXXUBQSEBB0798-95-24 12:05:00 Test Item Value Reference Range Interpretation Comments Sodium Lvl (test code = Sodium Lvl) 140 135-145 N [facility] TylerOaexlpyRWUNDLHDV4962-98-89 12:05:00 Test Item Value Reference Range Interpretation Comments Creatinine Lvl (test code = Creatinine 0.8 0.5-1.4 N Lvl) [facility] TylerCshmvoiBMIXEKKAJ9532-59-33 12:05:00 Test Item Value Reference Range Interpretation Comments BUN (test code = BUN) 15 7-22 N [facility] TylerHepskywASQQVFQYT4316-17-08 12:05:00 Test Item Value Reference Range Interpretation Comments Glucose Lvl (test code = Glucose Lvl) 87 70-99 N [facility] TylerJejabbvVNNRLDWVF4268-18-73 12:05:00 Test Item Value Reference Range Interpretation Comments Alk Phos (test code = Alk Phos) 121 39-136 N [facility] TylerCozrdigGQOKDKUIM9823-75-63 12:05:00 Test Item Value Reference Range Interpretation Comments Albumin Lvl (test code = Albumin Lvl) 4.0 3.5-5.0 N [facility] TylerQxmuaeqHIYJITLNM2527-45-68 12:05:00 Test Item Value Reference Range Interpretation Comments Bili Total (test code = Bili Total) 1.1 0.2-1.3 N [facility] TylerAlrlampGBZZWPHWQ8868-60-70 12:05:00 Test Item Value Reference Range Interpretation Comments ALT (test code = ALT) 17 See_Comment N [Auto mated message] The system which ge nerated this result transmit anderson reference range : <=65. The reference range was not used to interpr et this result as aakash l/abnormal. [facility] GtowiqjOREDMNVAF1431-22-13 12:05:00 Test Item Value Reference Range Interpretation Comments A/G Ratio (test code = A/G Ratio) 1.0 0.7-1.6 N [facility] TaylorUiyslzyUPOOLEGZV8236-41-92 12:05:00 Test Item Value Reference Range Interpretation Comments Globulin (test code = Globulin) 4.2 2.0-4.0 H [facility] TaylorBypexogNIPXQTITZ0872-71-19 12:05:00 Test Item Value Reference Range Interpretation Comments AGAP (test code = AGAP) 14.0 10.0-20.0 N [facility] TaylorCnugxofPCXOPUBCN6880-15-39 12:05:00 Test Item Value Reference Range Interpretation Comments B/C Ratio (test code = B/C Ratio) 19 6-25 N [facility] TaylorUyvrpgmOIJQKTDRL1370-86-70 12:05:00 Test Item Value Reference Range Interpretation Comments HDL (test code = HDL) 74 N [facility] QcfwtzmMFKPXDTPY4775-14-75 12:05:00 Test Item Value Reference Range Interpretation Comments Chol (test code = Chol) 158 120-200 N [facility] MugowhaJNZEEQZPP3675-61-35 12:05:00 Test Item Value Reference Range Interpretation Comments Trig (test code = 56 See_Comment N [Automate d message] The Trig) system which nerated this result transmit anderson reference range : <=200. The reference range was not used to interpr et this result as aakash l/abnormal. [facility] TaylorCikbdvdIUMYVNMPE3988-61-75 12:05:00 Test Item Value Reference Range Interpretation Comments LDL (test code = LDL) 73 See_Comment N [Auto mated message] The system which ge nerated this result transmit anderson reference range : <=129. The reference range was not used to interpr et this result as aakash l/abnormal. [facility] TaylorRgmvhxaYEHTYEUCN1503-31-90 12:05:00 Test Item Value Reference Range Interpretation Comments CHD Risk (test code = CHD Risk) 2.14 3.90-5.80 L [facility] TaylorCjwzpvpGDDZCGZEX1610-84-38 12:05:00 Test Item Value Reference Range Interpretation Comments Hgb A1C (test code = Hgb A1C) 4.9 [facility] CenterSspglrwSNYKWDTUPB3126-08-17 12:05:00 Test Item Value Reference Range Interpretation Comments Segs (test code = Segs) 58.9 45.0-75.0 N [facility] CenterObuiyqqALQDZTDUFX0958-33-81 12:05:00 Test Item Value Reference Range Interpretation Comments Segs-Bands # (test code = Segs-Bands #) 2.5 1.5-8.1 N [facility] CenterXzzynihGSOGNDJTAE3208-55-61 12:05:00 Test Item Value Reference Range Interpretation Comments Basophils (test code = 0.8 See_Comment N [Aut omated message] The Basophils) system which ge nerated this result tra nsmitted reference range : <=1.0. The reference r giorgio was not used to int erpret this result as normal/abnormal . [facility] CenterNwcectfCUMHRQHZAB8364-34-57 12:05:00 Test Item Value Reference Range Interpretation Comments Lymphocytes # (test code = Lymphocytes 1.3 1.0-5.5 N #) [facility] CenterQdsnwrfYXHGNEWONA5434-14-95 12:05:00 Test Item Value Reference Range Interpretation Comments Eosinophils # (test code 0.1 See_Comment N [A utomated message] The = Eosinophils #) system whic h generated this result tra nsmitted reference range : <=0.5. The reference r giorgio was not used to int erpret this result as normal/abnormal . [facility] CenterFurveheYDMMJFOUPH5644-92-30 12:05:00 Test Item Value Reference Range Interpretation Comments Monocytes # (test code 0.3 See_Comment N [Aut omated message] The = Monocytes #) system which generated this result tra nsmitted reference range : <=0.8. The reference r giorgio was not used to int erpret this result as normal/abnormal . [facility] CenterLyruncgDSBBBZRFCH2555-33-66 12:05:00 Test Item Value Reference Range Interpretation Comments Monocytes (test code = Monocytes) 8.0 2.0-12.0 N [facility] CenterKhzchjnKNJNEDUHQM8192-03-94 12:05:00 Test Item Value Reference Range Interpretation Comments Eosinophils (test code = 2.0 See_Comment N [A utomated message] The Eosinophils) system which ge nerated this result tra nsmitted reference range : <=4.0. The reference r giorgio was not used to int erpret this result as normal/abnormal . [facility] CenterEkphdzfGLYIGKDTNP5910-77-54 12:05:00 Test Item Value Reference Range Interpretation Comments Lymphocytes (test code = Lymphocytes) 30.3 20.0-40.0 N [facility] CenterEkzrvquIDPUYISGTF4189-67-01 12:05:00 Test Item Value Reference Range Interpretation Comments INR (test code = INR) 1.00 0.85-1.17 N [facility] CenterXfqlyhmKKZYIOHIKB4970-42-00 12:05:00 Test Item Value Reference Range Interpretation Comments PTT (test code = PTT) 34.5 s 22.9-35.8 N [facility] CenterHhxzchtHFCQLMYKOV2399-85-47 12:05:00 Test Item Value Reference Range Interpretation Comments PT (test code = PT) 13.4 s 12.0-14.7 N [facility] CenterEujcsxdVCUNBJBCPE9873-88-56 12:05:00 Test Item Value Reference Range Interpretation Comments MPV (test code = MPV) 9.1 7.4-10.4 N [facility] CenterYdznmhyARXZSEFCXY6163-18-90 12:05:00 Test Item Value Reference Range Interpretation Comments Platelet (test code = Platelet) 259 133-450 N [facility] CenterJqwylbzTQPAQNUFBR8921-83-04 12:05:00 Test Item Value Reference Range Interpretation Comments Hct (test code = Hct) 39.9 36.0-48.0 N [facility] CenterDqkpiuzSPMLGFLOVB2418-82-22 12:05:00 Test Item Value Reference Range Interpretation Comments MCH (test code = MCH) 31.9 pg 27.0-31.0 H [facility] CenterQkhwpdzZIBAXFJKFY1511-77-86 12:05:00 Test Item Value Reference Range Interpretation Comments MCV (test code = MCV) 92.9 81.0-99.0 N [facility] CenterHtcqfxpZAEWQWWLSQ1006-55-40 12:05:00 Test Item Value Reference Range Interpretation Comments RDW (test code = RDW) 12.7 11.5-14.5 N [facility] CenterZtzqpgxQXDQIFFKUE9834-35-23 12:05:00 Test Item Value Reference Range Interpretation Comments MCHC (test code = MCHC) 34.3 32.0-36.0 N [facility] CenterPzcngqhLRYMFKJKWT5209-85-25 12:05:00 Test Item Value Reference Range Interpretation Comments Hgb (test code = Hgb) 13.7 12.0-16.0 N [facility] CenterLooujugTVAUKRAYBL1429-27-94 12:05:00 Test Item Value Reference Range Interpretation Comments RBC (test code = RBC) 4.29 4.20-5.40 N [facility] CenterDtsglblFNNAUCBSMF5615-78-08 12:05:00 Test Item Value Reference Range Interpretation Comments WBC (test code = WBC) 4.2 3.7-10.4 N [facility]EucihceKBCGBMYOID8226-14-36 12:05:00 Test Item Value Reference Range Interpretation Comments CMV IgG (test code = Reactive A CMV IgG) *ABN*(03/09/2013 07:05:00) [facility] HospitalLglqvyhRYPCWQRKRP1331-02-61 12:05:00 Test Item Value Reference Range Interpretation Comments EBV VCA IgM (test code = EBV VCA IgM) 0.2 N [facility] HospitalPuioxptAZHTGOOVMQ1151-98-53 12:05:00 Test Item Value Reference Range Interpretation Comments EBV VCA IgG (test code = EBV VCA IgG) no gt H [facility] HospitalNfqexeyCUWIZHXIWS3553-86-43 12:05:00 Test Item Value Reference Range Interpretation Comments CMV IgM (test code = CMV IgM) 0.2 [facility] HospitalBstentiCPNKIAAZUF9287-08-61 12:05:00 Test Item Value Reference Range Interpretation Comments Varicella IgM (test code = Varicella 0.62 IgM) [facility] HospitalPamdkyqDUSULFLLPD1291-44-90 12:05:00 Test Item Value Reference Range Interpretation Comments HTLV I/II Ab (test code = HTLV NONREACTIVE I/II Ab) [facility] HospitalDiivpjwGLMCQJGWZB3780-95-04 12:05:00 Test Item Value Reference Range Interpretation Comments HSV 2 IgG (test code = HSV 2 IgG) no gt H [facility] HospitalHmmkerpWSVEVNCFMX1874-06-21 12:05:00 Test Item Value Reference Range Interpretation Comments HSV 1 IgG (test code = HSV 1 IgG) no gt N [facility] HospitalJnwhexgWUILLEIUBW1414-02-92 12:05:00 Test Item Value Reference Range Interpretation Comments Varicella IgG (test code = Varicella 2.0 H IgG) [facility] HospitalGhkqwuxZLOTGPDWMO6927-35-63 12:05:00 Test Item Value Reference Range Interpretation Comments RPR (test code = RPR) Non Reactive (03/09/2013 N 07:05:00) [facility] HospitalHvgpkwwZLXZOHRWWV1128-04-50 12:05:00 Test Item Value Reference Range Interpretation Comments Hep C Ab (test code = Negative *NA*(03/09/2013 Hep C Ab) 07:05:00) [facility] HospitalBjhblopARKNRZJJLK7156-31-16 12:05:00 Test Item Value Reference Range Interpretation Comments Hep Bs Ab (test code = Hep Bs Ab) no gt N [facility] HospitalObmwvxbUGCSQGWNDO1521-43-75 12:05:00 Test Item Value Reference Range Interpretation Comments Hep B Core Ab (test Negative *NA*(03/09/2013 code = Hep B Core Ab) 07:05:00) [facility] HospitalPkquxpwFDIVOZEIGG0799-01-95 12:05:00 Test Item Value Reference Range Interpretation Comments Hep Bs Ag (test code Negative *NA*(03/09/2013 = Hep Bs Ag) 07:05:00) [facility] HospitalDautgzaODBPJTGLYU1885-54-45 12:05:00 Test Item Value Reference Range Interpretation Comments HIV 1/2 Ab (test code Negative *NA*(03/09/2013 = HIV 1/2 Ab) 07:05:00) [facility] HospitalPjebehdMFRTSKAIFU5073-77-91 12:05:00 Test Item Value Reference Range Interpretation Comments NIL (test code = NIL) 0.05 [facility] HospitalIxqugapCJKHQCGKJY4580-62-55 12:05:00 Test Item Value Reference Range Interpretation Comments TB - NIL (test code = TB - NIL) no gt [facility] HospitalYjddbpxEAQOZITZCP6864-03-07 12:05:00 Test Item Value Reference Range Interpretation Comments Quantiferon - TB Gold (test code = NEGATIVE Quantiferon - TB Gold) [facility] HospitalDgmeoraZBNWLJJXZR2272-74-50 12:05:00 Test Item Value Reference Range Interpretation Comments Mitogen - NIL (test code = Mitogen - no gt NIL) [facility]2013-05-17 12:05:00 Test Item Value Reference Range Interpretation Comments Source BK Virus PCR Qnt (test code = Plasma Source BK Virus PCR Qnt) [facility]2013-05-17 12:05:00 Test Item Value Reference Range Interpretation Comments BK Virus PCR Qnt Negative (03/09/2013 N (test code = BK Virus 07:05:00) PCR Qnt) [facility]2013-05-17 12:05:00 Test Item Value Reference Range Interpretation Comments BK Virus PCR Qnt (log) (test code = BK no gt Virus PCR Qnt (log)) [id number] 12:05:00 Test Item Value Reference Range Interpretation Comments Micro? (test code = Not Indicated Micro?) *NA*(03/09/2013 07:05:00) [id number] 12:05:00 Test Item Value Reference Range Interpretation Comments UA RBC (test code = 2 See_Comment N [Automa anderson message] The UA RBC) system which ge nerated this result transmit anderson reference range : <=2. The reference range was not used to interpr et this result as aakash l/abnormal. [id number] 12:05:00 Test Item Value Reference Range Interpretation Comments UA Mucus (test code = Few /LPF UA Mucus) *NA*(03/09/2013 07:05:00) [id number] 12:05:00 Test Item Value Reference Range Interpretation Comments UA Urobilinogen (test code *NA*(03/09/2013 0.1-1.0 = UA Urobilinogen) 07:05:00) [id number] 12:05:00 Test Item Value Reference Range Interpretation Comments UA Nitrite (test code Negative (03/09/2013 N = UA Nitrite) 07:05:00) [facility]ballLjtygulAWAWEKKDJR0422-04-21 12:05:00 Test Item Value Reference Range Interpretation Comments UA Ketones (test code Negative mg/dL = UA Ketones) *NA*(03/09/2013 07:05:00) [id number] 12:05:00 Test Item Value Reference Range Interpretation Comments UA Blood (test code = Negative (03/09/2013 N UA Blood) 07:05:00) [id number] 12:05:00 Test Item Value Reference Range Interpretation Comments UA Bili (test code = Negative *NA*(03/09/2013 UA Bili) 07:05:00) [id number] 12:05:00 Test Item Value Reference Range Interpretation Comments UA Glucose (test code Negative mg/dL = UA Glucose) *NA*(03/09/2013 07:05:00) [id number] 12:05:00 Test Item Value Reference Range Interpretation Comments UA Protein (test code Negative mg/dL N = UA Protein) (03/09/2013 07:05:00) [id number] 12:05:00 Test Item Value Reference Range Interpretation Comments UA Leuk Est (test Negative (03/09/2013 N code = UA Leuk Est) 07:05:00) [id number] 12:05:00 Test Item Value Reference Range Interpretation Comments UA WBC (test code = no gt See_Comment N [Automa anderson message] The UA WBC) system which ge nerated this result transmit anderson reference range : <=5. The reference range was not used to interpr et this result as aakash l/abnormal. [facility] [id number] 12:05:00 Test Item Value Reference Range Interpretation Comments UA Spec Grav (test code = UA Spec Grav) 1.012 N [facility] [id number] 12:05:00 Test Item Value Reference Range Interpretation Comments UA pH (test code = UA pH) 7.0 5.0-8.0 N [facility] [id number] 12:05:00 Test Item Value Reference Range Interpretation Comments UA Turbidity (test code = Clear (03/09/2013 N UA Turbidity) 07:05:00) [id number] 12:05:00 Test Item Value Reference Range Interpretation Comments UA Color (test code = Yellow *NA*(03/09/2013 UA Color) 07:05:00) [facility] 12:05:00 Test Item Value Reference Range Interpretation Comments Culture: Urine (test code = Culture: Urine) [facility]
[2022-07-26] MEDS ORDERED: METHYLPREDNISOLONE 125 MG INJ ONE (08:46)
--- NOTE | 2022-07-26 08:47 | RAD REPORT ---
EXAM DESCRIPTION: CT - Spine Lumbar Wo Con - 07/26/2022 8:32 am CLINICAL HISTORY: Radiculopathy. pain COMPARISON: No comparisons TECHNIQUE: Axial noncontrast CT imaging of the lumbar spine was performed with coronal and sagittal re-formatted images. All CT scans are performed using dose optimization technique as appropriate and may include automated exposure control or mA/KV adjustment according to patient size. FINDINGS: No acute lumbar spine fracture seen. No aggressive marrow pattern or malalignment. Paraspinal tissues are normal in thickness. No paraspinal abscess or hematoma seen. Spondylosis is present at L4-5 and L5-S1 with degenerative disc disease also present. Although CT is not optimal for disc disease detection, no gross high-grade canal stenosis seen. IMPRESSION: No acute lumbar spine abnormality seen. Consider MRI follow-up for assessment of disc disease if clinically desired.
[2022-07-26 08:59] LABS: Urine Blood Negative (Negative); Urine Glucose Negative (Negative); Urine Protein Negative (Negative); Urine Specific Gravity >=1.030 (1.005-1.030); Urine pH 6.5 (5.0-7.0)
--- NOTE | 2022-07-26 09:15 | ER ---
Nurse's Notes [facility] Name: Ayse Reinoso Age: 62 yrs Sex: Female : 1960 Arrival Date: 07/26/2022 Time: 07:28 Bed 16 Private MD: Diagnosis: Low back pain Presentation: 07/26 08:08 Chief complaint: Patient states: she has been having mid to low back pain that began ap3 07/22/2022. patient states she has a hx of disk disease, but this feels different. patient reports seeing her provider last week for the pain, however the pain has gotten worse. Coronavirus screen: At this time, the client does not indicate any symptoms associated with coronavirus-19. Ebola Screen: No symptoms or risks identified at this time. Initial Sepsis Screen: Does the patient meet any 2 criteria? No. Patient's initial sepsis screen is negative. Does the patient have a suspected source of infection? No. Patient's initial sepsis screen is negative. Risk Assessment: Do you want to hurt yourself or someone else? Patient reports no desire to harm self or others. Onset of symptoms was July 22, 2022. 08:08 Method Of Arrival: Ambulatory ap3 08:08 Acuity: CYNDI 4 ap3 Triage Assessment: 08:14 General: Appears uncomfortable, Behavior is calm, cooperative. Pain: Complains of pain ap3 in low back area Pain radiates to mid back area. Neuro: Level of Consciousness is awake, alert, obeys commands, Oriented to person, place, time, situation, Gait is steady, Speech is normal. Cardiovascular: Patient's skin is warm and dry. Respiratory: Airway is patent Respiratory effort is even, unlabored, Respiratory pattern is regular, symmetrical. Musculoskeletal: Range of motion: intact in all extremities. Historical: - Allergies: 08:13 Demerol; ap3 08:13 Lortab; ap3 08:13 Morphine; ap3 08:13 NO NSAIDS; ap3 - PMHx: 08:13 Asthma; GERD; pt only has one kidney; ap3 - Immunization history:: Client reports having NOT received the Covid vaccine. - Social history:: Smoking status: Patient denies any tobacco usage or history of. Screenin:15 Abuse screen: Denies threats or abuse. Nutritional screening: No deficits noted. ap3 Tuberculosis screening: No symptoms or risk factors identified. Fall Risk None identified. Assessment: 08:40 General: Appears in no apparent distress. uncomfortable, Behavior is calm, cooperative, ko1 appropriate for age. Pain: Complains of pain in lumbar area and mid back area and back and low back area. Neuro: Neuro: No deficits noted. Cardiovascular: No deficits noted. Respiratory: No deficits noted. GI: No deficits noted. : No deficits noted. EENT: No deficits noted. Derm: No deficits noted. Musculoskeletal: No deficits noted. 09:50 Neuro: No deficits noted. ko1 Vital Signs: 08:08 BP 114 / 83; Pulse 67; Resp 18; Temp 98.6; Pulse Ox 100% ; Weight 56.25 kg; Height 5 ap3 ft. 3 in. (160.02 cm); 08:40 BP 124 / 86; Pulse 72; ko1 08:08 Body Mass Index 21.97 (56.25 kg, 160.02 cm) ap3 ED Course: 07:28 Patient arrived in ED. as 08:04 Letty Shelton FNP-C is [facility]. kb 08:04 Alexander Soto MD is Attending Physician. kb 08:12 Triage completed. ap3 08:15 Arm band placed on right wrist. ap3 08:16 Patient has correct armband on for positive identification. Bed in low position. Call ap3 light in reach. Door closed. Noise minimized. 08:41 Jessica Gage, NADIYA is Primary Nurse. ko1 09:50 No provider procedures requiring assistance completed. Patient did not have IV access ko1 during this emergency room visit. Administered Medications: 08:52 Drug: SOLU-Medrol (methylPREDNISolone sodium succinate) 125 mg Route: IM; Site: right ko1 gluteus; Medication: 08:16 VIS not applicable for this client. ap3 Outcome: 09:14 Discharge ordered by . kb 09:50 Discharged to home ambulatory, with family. ko1 09:50 Condition: improved 09:50 Discharge instructions given to patient, Instructed on discharge instructions, follow up and referral plans. medication usage, Demonstrated understanding of instructions, follow-up care, medications, Prescriptions given X 1. 09:51 Patient left the ED. ko1 Signatures: Letty Shelton FNP-C FNP-Shaista Jay Amanda RN RN ap3 Jessica Gage, RN RN ko1
--- NOTE | 2022-07-26 09:15 | EDPHYS ---
Physician Documentation [facility] Name: Ayse Reinoso Age: 62 yrs Sex: Female : 1960 Arrival Date: 07/26/2022 Time: 07:28 Bed 16 Private MD: ED Physician Alexander Soto HPI: 07/26 08:14 This 62 yrs old Female presents to ER via Ambulatory with complaints of Back Pain. kb 08:14 The patient presents with pain that is acute, with no known mechanism of injury. The kb symptoms are located in the lumbar area. Onset: The symptoms/episode began/occurred 5 day(s) ago. The pain does not radiate. Associated signs and symptoms: Pertinent positives: none Pertinent negatives: incontinence, numbness, tingling, urinary retention. The problem was sustained from unknown cause. Modifying factors: The patient symptoms are alleviated by nothing, the patient symptoms are aggravated by any movement. Severity of symptoms: At their worst the symptoms were moderate, in the emergency department the symptoms are unchanged. The patient has not experienced similar symptoms in the past. The patient has been recently seen by a physician:. Pt states she was getting into her van on 07/22/22 and felt a pain in her back. states she has been taking it easy, but yesterday lifted something and when she put it down the pain got worse. States she has been taking her prescribed muscle relaxers and pain medication, but it has not helped. "I can feel by vertebre rubbing together when I move." Was seen by a dr last week for this and a CT scan was ordered, but she hasn't got the call to schedule it. . Historical: - Allergies: 08:13 Demerol; ap3 08:13 Lortab; ap3 08:13 Morphine; ap3 08:13 NO NSAIDS; ap3 - PMHx: 08:13 Asthma; GERD; pt only has one kidney; ap3 - Immunization history:: Client reports having NOT received the Covid vaccine. - Social history:: Smoking status: Patient denies any tobacco usage or history of. ROS: 08:18 Constitutional: Negative for fever, chills, and weight loss. kb 08:18 Back: Positive for pain at rest, pain with movement, of the lumbar area. 08:18 All other systems are negative. Exam: 08:18 Constitutional: This is a well developed, well nourished patient who is awake, alert, kb and in no acute distress. Head/Face: Normocephalic, atraumatic. ENT: Moist Mucous membranes Cardiovascular: Regular rate and rhythm with a normal S1 and S2. No gallops, murmurs, or rubs. No pulse deficits. Respiratory: Respirations even and unlabored. No increased work of breathing. Talking in full sentences Abdomen/GI: Soft, non-tender. No distention Skin: Warm, dry with normal turgor. Normal color. MS/ Extremity: Pulses equal, no cyanosis. Neurovascular intact. Full, normal range of motion. Neuro: Awake and alert, GCS 15, oriented to person, place, time, and situation. Moves all extremities. Normal gait. Psych: Awake, alert, with orientation to person, place and time. Behavior, mood, and affect are within normal limits. 08:18 Back: pain, that is moderate, of the lumbar area, ROM is painful, with all movement, normal spinal alignment noted. Vital Signs: 08:08 BP 114 / 83; Pulse 67; Resp 18; Temp 98.6; Pulse Ox 100% ; Weight 56.25 kg; Height 5 ap3 ft. 3 in. (160.02 cm); 08:40 BP 124 / 86; Pulse 72; ko1 08:08 Body Mass Index 21.97 (56.25 kg, 160.02 cm) ap3 MDM: 08:11 Patient medically screened. kb 08:18 Data reviewed: vital signs, nurses notes. Data interpreted: Pulse oximetry: on room air kb is 100 %. Interpretation: normal. 09:14 Counseling: I had a detailed discussion with the patient and/or guardian regarding: the kb historical points, exam findings, and any diagnostic results supporting the discharge/admit diagnosis, lab results, radiology results, the need for outpatient follow up, a family practitioner, to return to the emergency department if symptoms worsen or persist or if there are any questions or concerns that arise at home. 07/26 08:59 Order name: Urine Dipstick-Ancillary; Complete Time: 09:03 EDMS 07/26 08:12 Order name: CT Lumbar Spine Wo Con kb 07/26 08:18 Order name: Urine Dipstick-Ancillary (obtain specimen); Complete Time: 08:52 kb 07/26 08:48 Order name: CT; Complete Time: 08:51 EDMS Administered Medications: 08:52 Drug: SOLU-Medrol (methylPREDNISolone sodium succinate) 125 mg Route: IM; Site: right ko1 gluteus; Disposition: 11:08 PA/[employer]'s history reviewed, patient interviewed, and examined. I agree with assessment jr11 and care plan and confirm the diagnosis (es) above. Attestation: The patient's history, exam findings, diagnostics, and a summary of any interventions or procedures was reviewed in detail with Letty BOWDEN. Disposition Summary: 07/26/22 09:14 Discharge Ordered Location: Home kb Condition: Stable kb Diagnosis - Low back pain kb Followup: kb - With: Emergency Department - When: As needed - Reason: Worsening of condition Followup: kb - With: Private Physician - When: 2 - 3 days - Reason: Recheck today's complaints, Continuance of care, Re-evaluation by your physician Discharge Instructions: - Discharge Summary Sheet kb - Acute Back Pain, Adult kb - Musculoskeletal Pain kb Forms: - Medication Reconciliation Form kb - Thank You Letter kb - Antibiotic Education kb - Prescription Opioid Use kb Prescriptions: - Prednisone 20 mg Oral Tablet - take 1 tablet by ORAL route once daily for 5 days; 5 tablet; Refills: 0, kb Product Selection Permitted Signatures: Dispatcher [employer] EDLetty Peres FNP-C FNP-Ckb Prokisch, Amanda RN RN ap3 Alexander Soto MD MD [id number] Jessica Gage RN RN ko1
[2022-07-26 09:59] VITALS: TEMP 98.6; O2SAT 100
[2022-07-26 10:00] VITALS: BP 124/86
== END 2022-07-26 09:51 | disposition home or self-care (01) ==
LOC: ER 07:26
DX: M54.50 Low back pain, unspecified (principal); J45.909 Unspecified asthma, uncomplicated; K21.9 Gastro-esophageal reflux disease without esophagitis; Z88.6 Allergy status to analgesic agent
CPT/HCPCS: 81003; 72131; 96372; 99283; J2930